=== PATIENT | male | born 1965 | race Two or more races ===

== ENCOUNTER 2017-07-30 03:20 | Inpatient (IN) | payer MEDICAID, OTHER ==
[~2017-07-30] VITALS: Ht 175.3 cm; Wt 99.3 kg
[2017-07-30] VITALS (7 sets, daily range): BP systolic 128–180; BP diastolic 71–102
[~2017-07-30 03:20] MED LIST: AMITRIPTYLINE H50 MG ORAL; AMLODIPINE BES2.5 MG ORAL; ARTANE2 MG ORAL; ATARAX25 MG ORAL; GLUCOTROL XL5 MG ORAL; LOPID600 MG ORAL; METOPROLOL SUCC25 MG ORAL; NITROSTAT0.3 MG SL; QUETIAPINE FUMA25 MG ORAL; RANITIDINE50 MG/2 ML PO; SIMVASTATIN5 MG ORAL
[2017-07-30] MEDS ORDERED: Mylanta II UD 30ml ORAL ONE (03:30)
[2017-07-30] MEDS ORDERED: Dicyclomine HCl 10mg/5ml oral soln ORAL ONE (03:30)
[2017-07-30] MEDS ORDERED: Lidocaine 2% Visc 15ml soln ORAL ONE (03:30)
--- NOTE | 2017-07-30 03:49 | Emergency Room Report ---
History of Present Illness General Chief Complaint: Abdominal Pain Source: Patient Present Illness HPI 51-year-old male with schizophrenia, abdominal pain "for years", presenting with abdominal pain. Patient points to suprapubic area abdominal pain. Constant pain, sharp, associated with nausea and vomiting x2 episodes, nonbilious nonbloody. Denies fever chills or diarrhea. Patient states that he has experienced this pain many times in the past. No history of abdominal surgeries endoscopies and colonoscopies. No black or bloody stools Per EMS, patient also has schizophrenia and had yelling outbursts while in ambulance Allergies: Coded Allergies: No Known Allergies (Verified , 10/01/10) Patient History Past Medical History: see triage record Past Surgical History: none Pertinent Family History: none Reviewed Nursing Documentation: PMH: Agreed, PSxH: Agreed Nursing Documentation-PMH Hx Cardiac Problems: Yes Hx Hypertension: Yes Hx Diabetes: Yes - NON INSULIN Hx Cancer: No Hx Gastrointestinal Problems: No Hx Neurological Problems: No Review of Systems All Other Systems: negative except mentioned in HPI Physical Exam Vital Signs Date Time Temp Pulse Resp B/P (MAP) Pulse Ox O2 Delivery O2 Flow Rate FiO2 07/30/17 03:21 98.1 88 18 180/102 98 Room Air Sp02 EP Interpretation: reviewed, normal General Appearance: alert, GCS 15, non-toxic, mild distress Head: normocephalic, atraumatic Eyes: bilateral eye normal inspection, bilateral eye PERRL, bilateral eye EOMI ENT: normal ENT inspection, normal pharynx, normal voice, moist mucus membranes Neck: normal inspection, full range of motion, supple Respiratory: normal inspection, lungs clear, normal breath sounds, no respiratory distress, no retraction, no wheezing, speaking full sentences, chest symmetrical Cardiovascular #1: normal inspection, regular rate, rhythm, no edema, normal capillary refill Cardiovascular #2: 2+ radial (R), 2+ radial (L) Gastrointestinal: soft, non-distended, no guarding, other - Soft, nontender all quadrants, no guarding no rebound, normal bowel sounds Genitourinary: no CVA tenderness Musculoskeletal: normal inspection, back normal, normal range of motion, non- tender Neurologic: normal inspection, alert, oriented x3, responsive, motor strength/ tone normal, sensory intact, normal gait, speech normal Psychiatric: normal inspection, judgement/insight normal, memory normal, no suicidal/homicidal ideation Skin: normal inspection, normal color, no rash, warm/dry, well hydrated, normal turgor Medical Decision Making Diagnostic Impression: Primary Impression: Nausea and vomiting in adult Additional Impressions: Hypokalemia Schizophrenia ER Course 51-year-old male with abdominal pain Differential Diagnosis: Gastritis, gastroenteritis, cholecystitis, appendicitis, diverticulitis, SBO, mesenteric ischemia, cardiac, UTI/pyelo At this time abdomen is soft nontender, not likely to have acute intra- abdominal surgical pathology, will hold CT for now. Plan: Basic labs, ua, ekg Pepcid, maalox, pain control, IVF ER course: Patient with +nausea, zofran given also had yelling outburst while in ED, haldol given patient feels better, no SI/HI +hypokalemia, pt supplemented Disposition: Patient will be admitted to med surg for intractable nausea/vomiting, hypokalemia Patient was signed out to Dr Parham, who has accepted patient for admission. Please note that this Emergency Department Report was dictated using [employer] technology software, occasionally this can lead to erroneous entry secondary to interpretation by the dictation equipment Laboratory Tests Test 07/30/17 03:32 White Blood Count 13.4 K/UL (4.8-10.8) H Red Blood Count 4.68 M/UL (4.70-6.10) L Hemoglobin 14.0 G/DL (14.2-18.0) L Hematocrit 40.5 % (42.0-52.0) L Mean Corpuscular Volume 87 FL (80-99) Mean Corpuscular Hemoglobin 29.9 PG (27.0-31.0) Mean Corpuscular Hemoglobin Concent 34.5 G/DL (32.0-36.0) Red Cell Distribution Width 13.2 % (11.6-14.8) Platelet Count 274 K/UL (150-450) Mean Platelet Volume 6.2 FL (6.5-10.1) L Neutrophils (%) (Auto) 51.6 % (45.0-75.0) Lymphocytes (%) (Auto) 36.1 % (20.0-45.0) Monocytes (%) (Auto) 8.8 % (1.0-10.0) Eosinophils (%) (Auto) 2.4 % (0.0-3.0) Basophils (%) (Auto) 1.1 % (0.0-2.0) Urine Color Pale yellow Urine Appearance Clear Urine pH 8 (4.5-8.0) Urine Specific [place] 1.015 (1.005-1.035) Urine Protein 1+ (NEGATIVE) H Urine Glucose (UA) 4+ (NEGATIVE) H Urine Ketones Negative (NEGATIVE) Urine Occult Blood Negative (NEGATIVE) Urine Nitrite Negative (NEGATIVE) Urine Bilirubin Negative (NEGATIVE) Urine Urobilinogen Normal MG/DL (0.0-1.0) Urine Leukocyte Esterase 1+ (NEGATIVE) H Urine RBC 0-2 /HPF (0 - 0) H Urine WBC 0-2 /HPF (0 - 0) Urine Squamous Epithelial Cells Occasional /LPF Urine Bacteria Occasional /HPF (NONE) Sodium Level 128 MMOL/L (136-145) L Potassium Level 3.0 MMOL/L (3.5-5.1) L Chloride Level 93 MMOL/L (98-107) L Carbon Dioxide Level 24 MMOL/L (21-32) Anion Gap 11 (5-15) Blood Urea Nitrogen 12 mg/dL (7-18) Creatinine 1.0 MG/DL (0.55-1.00) Estimate Glomerular Filtration Rate > 60 mL/min (>60) Glucose Level 312 MG/DL (74-106) H Calcium Level 7.8 MG/DL (8.5-10.1) L Total Bilirubin 0.3 MG/DL (0.2-1.0) Aspartate Amino Transferase (AST) 25 U/L (15-37) Alanine Aminotransferase (ALT) 55 U/L (12-78) Alkaline Phosphatase 94 U/L (46-116) Troponin I 0.000 ng/mL (0.000-0.056) Total Protein 7.6 G/DL (6.4-8.2) Albumin 3.6 G/DL (3.4-5.0) Globulin 4.0 g/dL Albumin/Globulin Ratio 0.9 (1.0-2.7) L Lipase 132 U/L (73-393) EKG Diagnostic Results Rate: normal Rhythm: NSR ST Segments: no acute changes ASA given to the pt in ED: No Rhythm Strip Diag. Results EP Interpretation: yes Rate: 73 Rhythm: NSR, no PVC's, no ectopy Last Vital Signs Date Time Temp Pulse Resp B/P (MAP) Pulse Ox O2 Delivery O2 Flow Rate FiO2 07/30/17 03:21 98.1 88 18 180/102 98 Room Air Disposition: ADMITTED INPATIENT Condition: Serious Diana Osborne M.D. Jul 30, 2017 03:49
[2017-07-30 03:53] LABS: BASOPHILS % (AUTO) 1.1 % (0.0-2.0); EOSINOPHILS % (AUTO) 2.4 % (0.0-3.0); LYMPHOCYTES % (AUTO) 36.1 % (20.0-45.0); MEAN CORPUSCULAR HEMOGLOBIN 29.9 PG (27.0-31.0); MEAN CORPUSCULAR HGB CONC 34.5 G/DL (32.0-36.0); MEAN CORPUSCULAR VOLUME 87 FL (80-99); MEAN PLATELET VOLUME 6.2 FL (6.5-10.1); MONOCYTES % (AUTO) 8.8 % (1.0-10.0); NEUTROPHILS % (AUTO) 51.6 % (45.0-75.0); PLATELET COUNT 274 K/UL (150-450); RED BLOOD COUNT 4.68 M/UL (4.70-6.10); RED CELL DISTRIBUTION WIDTH 13.2 % (11.6-14.8); WHITE BLOOD COUNT 13.4 K/UL (4.8-10.8)
[2017-07-30 04:03] LABS: APPEARANCE,URINE CLEAR; KETONES,URINE NEGATIVE (NEGATIVE); LEUKOCYTE ESTERASE ,URINE 1+ (NEGATIVE); NITRITE,URINE NEGATIVE (NEGATIVE); PH,URINE 8 (4.5-8.0); PROTEIN,URINE 1+ (NEGATIVE); UROBILINOGEN,URINE NORMAL MG/DL (0.0-1.0)
[2017-07-30 04:09] LABS: BACTERIA,URINE OCCASIONAL /HPF; RBC,URINE 0-2 /HPF (0 - 0); SQUAMOUS EPITHELIAL CELL,UR OCCASIONAL /LPF (NONE/OCC); WBC,URINE 0-2 /HPF (0 - 0)
[2017-07-30] MEDS ORDERED: Haloperidol 5mg/ml Inj IM ONE (04:15)
[2017-07-30 04:19] LABS: ALANINE AMINOTRANSFERASE 55 U/L (12-78); ALBUMIN/GLOBULIN RATIO 0.9 (1.0-2.7); ANION GAP 11 (5-15); ASPARTATE AMINO TRANSFERASE 25 U/L (15-37); CALCIUM 7.8 MG/DL (8.5-10.1); CARBON DIOXIDE 24 MMOL/L (21-32); CHLORIDE 93 MMOL/L (98-107); GLOMERULAR FILTRATION RATE > 60 mL/min (>60); LIPASE 132 U/L (73-393); SODIUM 128 MMOL/L (136-145); TOTAL PROTEIN 7.6 G/DL (6.4-8.2)
[2017-07-30] MEDS ORDERED: Famotidine 20 MG/ 2ML VIAL IVP ONE (06:15)
[2017-07-30] MEDS ORDERED: Nitroglycerin Subl 0.4mg tab SL PRN (07:00)
[2017-07-30] MEDS ORDERED: Metoclopramide 10mg/2ml Inj IVP PRN (07:00)
[2017-07-30] MEDS ORDERED: LORazepam Inj 2mg/ml 1ml IV PRN (07:00)
[2017-07-30] MEDS ORDERED: Mylanta II UD 30ml ORAL PRN (07:00)
[2017-07-30] MEDS ORDERED: Morphine Sulfate 2mg/ml Inj IVP PRN (07:00)
[2017-07-30] MEDS ORDERED: Miralax 17gm pkt ORAL PRN (07:00)
[2017-07-30] MEDS ORDERED: D5 1/2NS 1,000 ML IV SCH (08:00)
[2017-07-30] MEDS ORDERED: Pantoprazole Inj IV SCH (09:00)
[2017-07-30] MEDS: Heparin 5000 units/ml inj SUBQ SCH ×2 (09:22→20:21)
--- NOTE | 2017-07-30 10:28 | Consultation ---
History of Present Illness General Date patient seen: Jul 30, 2017 Time patient seen: 14:31 Chief Complaint: Abdominal Pain Reason for Consultation: leukocytosis Present Illness HPI 52 y/o M with hx of schizophrenia, chronic abd pain, HTN, DM2 presents to ED on 07/30 worsening abdominal pain associated with nausea and 2 episodes of non billous, non bloody emesis. Denies f/c, diarrhea, melena or hematochezia, dysuria, MCNEILL, cough. Refers has experience same pain multiple times int he past ID is consulted for leukocytosis u/a neg, WBC 13. normal lipase.LFTs normal Feels better now Allergies: Coded Allergies: No Known Allergies (Verified , 10/01/10) Medication History Scheduled Amlodipine Besylate* (Amlodipine Besylate*), 0 ORAL DAILY, (Reported) Metoprolol Succinate* (Metoprolol Succinate*), 0 ORAL DAILY, (Reported) Quetiapine Fumarate* (Seroquel*), 0 ORAL DAILY, (Reported) Miscellaneous Medications Amitriptyline Hcl (Amitriptyline Hcl), 0 ORAL, (Reported) Gemfibrozil* (Lopid*), 0 ORAL, (Reported) Glipizide* (Glucotrol Xl*), 0 ORAL, (Reported) Hydroxyzine HCl (Hydroxyzine HCl), 0 ORAL, (Reported) Nitroglycerin (Nitrostat), 0 SL, (Reported) Ranitidine Hcl* (Ranitidine Hcl*), 0 PO, (Reported) Simvastatin (Zocor), 0 ORAL, (Reported) Trihexyphenidyl HCl (Trihexyphenidyl HCl), 2 ORAL, (Reported) Patient History Healthcare decision maker Resuscitation status Full Code Advanced Directive on File Review of Systems All Other Systems: negative except mentioned in HPI Physical Exam Physical Exam Narrative General Appearance: alert, resting comfortably in bed HEENT: PERRL, no oral lesions Neck: normal inspection, full range of motion, supple Respiratory: normal inspection, lungs clear, normal breath sounds, no respiratory distress Cardiovascular normal inspection, regular rate, rhythm, no edema, Gastrointestinal: soft, non-distended, no guarding, , normal bowel sounds Genitourinary: no CVA tenderness Musculoskeletal: normal inspection, back normal, normal range of motion, non- tender Neurologic: normal inspection, alert, oriented x3, responsive, no focal deficits Skin: normal inspection, normal color, no rash, warm/dry, well hydrated, normal turgor Last 24 Hour Vital Signs Date Time Temp Pulse Resp B/P (MAP) Pulse Ox O2 Delivery O2 Flow Rate FiO2 07/30/17 08:15 97.7 81 20 128/80 94 Room Air 07/30/17 07:56 98.4 66 22 131/71 96 Room Air 07/30/17 07:30 66 22 131/71 96 Room Air 07/30/17 05:30 98.4 67 19 133/81 95 Room Air 07/30/17 03:30 98.1 18 180/102 98 Room Air 07/30/17 03:21 98.1 88 18 180/102 98 Room Air Laboratory Tests Test 07/30/17 03:32 07/30/17 09:45 White Blood Count 13.4 K/UL (4.8-10.8) H Red Blood Count 4.68 M/UL (4.70-6.10) L Hemoglobin 14.0 G/DL (14.2-18.0) L Hematocrit 40.5 % (42.0-52.0) L Mean Corpuscular Volume 87 FL (80-99) Mean Corpuscular Hemoglobin 29.9 PG (27.0-31.0) Mean Corpuscular Hemoglobin Concent 34.5 G/DL (32.0-36.0) Red Cell Distribution Width 13.2 % (11.6-14.8) Platelet Count 274 K/UL (150-450) Mean Platelet Volume 6.2 FL (6.5-10.1) L Neutrophils (%) (Auto) 51.6 % (45.0-75.0) Lymphocytes (%) (Auto) 36.1 % (20.0-45.0) Monocytes (%) (Auto) 8.8 % (1.0-10.0) Eosinophils (%) (Auto) 2.4 % (0.0-3.0) Basophils (%) (Auto) 1.1 % (0.0-2.0) Urine Color Pale yellow Urine Appearance Clear Urine pH 8 (4.5-8.0) Urine Specific [place] 1.015 (1.005-1.035) Urine Protein 1+ (NEGATIVE) H Urine Glucose (UA) 4+ (NEGATIVE) H Urine Ketones Negative (NEGATIVE) Urine Occult Blood Negative (NEGATIVE) Urine Nitrite Negative (NEGATIVE) Urine Bilirubin Negative (NEGATIVE) Urine Urobilinogen Normal MG/DL (0.0-1.0) Urine Leukocyte Esterase 1+ (NEGATIVE) H Urine RBC 0-2 /HPF (0 - 0) H Urine WBC 0-2 /HPF (0 - 0) Urine Squamous Epithelial Cells Occasional /LPF Urine Bacteria Occasional /HPF (NONE) Sodium Level 128 MMOL/L (136-145) L Potassium Level 3.0 MMOL/L (3.5-5.1) L Chloride Level 93 MMOL/L (98-107) L Carbon Dioxide Level 24 MMOL/L (21-32) Anion Gap 11 (5-15) Blood Urea Nitrogen 12 mg/dL (7-18) Creatinine 1.0 MG/DL (0.55-1.00) Estimat Glomerular Filtration Rate > 60 mL/min (>60) Glucose Level 312 MG/DL (74-106) H Calcium Level 7.8 MG/DL (8.5-10.1) L Total Bilirubin 0.3 MG/DL (0.2-1.0) Aspartate Amino Transf (AST/SGOT) 25 U/L (15-37) Alanine Aminotransferase (ALT/SGPT) 55 U/L (12-78) Alkaline Phosphatase 94 U/L (46-116) Troponin I 0.000 ng/mL (0.000-0.056) Total Protein 7.6 G/DL (6.4-8.2) Albumin 3.6 G/DL (3.4-5.0) Globulin 4.0 g/dL Albumin/Globulin Ratio 0.9 (1.0-2.7) L Lipase 132 U/L (73-393) Osmolality Pending Uric Acid Pending Thyroid Stimulating Hormone (TSH) Pending Free Thyroxine Pending Free Triiodothyronine Pending Cortisol Pending Height (Feet): 5 Height (Inches): 9.00 Weight (Pounds): 219 Medications Current Medications Medications (Trade) Dose Ordered Sig/Alethea Route PRN Reason Start Time Stop Time Status Last Admin Dose Admin Acetaminophen (Tylenol) 650 mg Q4H PRN ORAL fever 07/30/17 07:00 08/29/17 06:59 Al Hydroxide/Mg Hydroxide (Mylanta II) 30 ml Q6H PRN ORAL dyspepsia 07/30/17 07:00 08/29/17 06:59 Dextrose (Dextrose 50%) STAT PRN IV Hypoglycemia 07/30/17 07:00 08/29/17 06:59 Dextrose/Sodium Chloride 1,000 ml @ 75 mls/hr [id number] IV 07/30/17 08:00 08/29/17 07:59 07/30/17 09:23 Diphenhydramine HCl (Benadryl) 25 mg Q6H PRN ORAL Itching/Pruritis 07/30/17 07:00 08/29/17 06:59 Heparin Sodium (Porcine) (Heparin 5000 units/ml) 5,000 units EVERY 12 HOURS SUBQ 07/30/17 09:00 08/29/17 08:59 07/30/17 09:22 Lorazepam (Ativan 2mg/ml 1ml) 1 mg Q4H PRN IV agitation 07/30/17 07:00 08/06/17 06:59 Metoclopramide HCl (Reglan) 10 mg Q6H PRN IVP servere nauasea 07/30/17 07:00 08/29/17 06:59 Morphine Sulfate (Morphine Sulfate) 2 mg Q4H PRN IVP severe Pain (Pain Scale 7-10) 07/30/17 07:00 08/06/17 06:59 Nitroglycerin (Ntg) 0.4 mg Q5M X 3 DOSES PRN SL Prn Chest Pain 07/30/17 07:00 08/29/17 06:59 Ondansetron HCl (Zofran) 4 mg Q6H PRN IVP Nausea & Vomiting 07/30/17 07:00 08/29/17 06:59 Pantoprazole (Protonix) 40 mg DAILY IV 07/30/17 09:00 08/29/17 08:59 07/30/17 09:22 Polyethylene Glycol (Miralax) 17 gm HSPRN PRN ORAL Constipation 07/30/17 07:00 08/29/17 06:59 Promethazine HCl (Phenergan) 25 mg Q8H PRN IV refractory nausea 07/30/17 07:00 08/29/17 06:59 Temazepam (Restoril) 15 mg HSPRN PRN ORAL Insomnia 07/30/17 07:00 08/06/17 06:59 Assessment/Plan Assessment/Plan Abx: None Assesment: Acute on Chronic Abd pain- r/o colitis, diverticulitis, cholecystitis (however LFTs normal), gastritis N/V Mild leukocytosis- ?reactive to pain vs intraabdominal infection u/a neg Afebrile Plan: -Continue to monitor off abx unless febrile and Pending abd u/s -Consider CT abd/p if abd pain worsnes -Monitor CBC/BMP, temperatures Thank you for this consultation. Will continue to follow along with you. Discussed with JEROME. Karli Goldsmith M.D. Jul 30, 2017 10:28
[2017-07-30 11:10] LABS: THYROID STIMULATING HORMONE 1.738 uiU/mL (0.360-3.740); URIC ACID 4.5 MG/DL (2.6-7.2)
[2017-07-30 11:20] LABS: APPEARANCE,URINE CLEAR; KETONES,URINE NEGATIVE (NEGATIVE); LEUKOCYTE ESTERASE ,URINE NEGATIVE (NEGATIVE); NITRITE,URINE NEGATIVE (NEGATIVE); PH,URINE 8 (4.5-8.0); PROTEIN,URINE NEGATIVE (NEGATIVE); UROBILINOGEN,URINE NORMAL MG/DL (0.0-1.0)
[2017-07-30 11:30] LABS: BACTERIA,URINE FEW /HPF; RBC,URINE 0-2 /HPF (0 - 0); WBC,URINE 0-2 /HPF (0 - 0)
--- NOTE | 2017-07-30 11:54 | GI Initial Consult Note ---
History of Present Illness General Date patient seen: Jul 30, 2017 Time patient seen: 10:00 Reason for Hospitalization: Abdominal Pain Referring physician: SABRINA BUENO Reason for Consultation: ABDOMINAL PAIN Present Illness HPI 51-year-old male with schizophrenia, abdominal pain "for years", presenting with abdominal pain. Patient points to suprapubic area abdominal pain. Constant pain, sharp, associated with nausea and vomiting x2 episodes, nonbilious nonbloody. Denies fever chills or diarrhea. Patient states that he has experienced this pain many times in the past. No history of abdominal surgeries endoscopies and colonoscopies. No black or bloody stools Per EMS, patient also has schizophrenia and had yelling outbursts while in ambulance. GI consulted for abdominal pain. HPI as noted above. Patient seen on floor, awake A&Ox3 NAD with no active s/sx of N/V/D. The patient c/o of abdominal pain directed more towards the suprapubic area. Abdomen is mildly tender and soft. Patient denies any pain. Patient presents today with leukocytosis. Lipase unremarkable. No history of endoscopies or colonoscopies. Home Meds Reported Medications Trihexyphenidyl HCl (Trihexyphenidyl HCl) 2 Mg Tab, 2 ORAL, TAB 05/17/13 Simvastatin (ZOCOR) 5 Mg Tablet, 0 ORAL, TAB 05/17/13 Ranitidine Hcl* (RANITIDINE HCL*) 50 Mg/2 Ml Vial, 0 PO 05/17/13 Nitroglycerin (NITROSTAT) 0.3 Mg Tab.subl, 0 SL 05/17/13 Metoprolol Succinate* (METOPROLOL SUCCINATE*) 25 Mg Tab.er.24h, 0 ORAL DAILY 05/17/13 Hydroxyzine HCl (Hydroxyzine HCl) 25 Mg Tab, 0 ORAL 05/17/13 Glipizide* (GLUCOTROL XL*) 5 Mg Tab.er.24, 0 ORAL, #10 TAB 05/17/13 Gemfibrozil* (LOPID*) 600 Mg Tablet, 0 ORAL, TAB 05/17/13 Amlodipine Besylate* (AMLODIPINE BESYLATE*) 2.5 Mg Tablet, 0 ORAL DAILY, #30 TAB 05/17/13 Amitriptyline Hcl (AMITRIPTYLINE HCL) 50 Mg Tablet, 0 ORAL 05/17/13 Quetiapine Fumarate* (SEROQUEL*) 25 Mg Tablet, 0 ORAL DAILY, TAB 05/17/13 Med list reviewed/reconciled: Yes Allergies: Coded Allergies: No Known Allergies (Verified , 10/01/10) Patient History Limited by: medical condition History Provided By: Patient, Medical Record PMH Narrative Past Medical History: see triage record Past Surgical History: none Pertinent Family History: none Reviewed Nursing Documentation: PMH: Agreed, PSxH: Agreed Nursing Documentation-PMH Hx Cardiac Problems: Yes Hx Hypertension: Yes Hx Diabetes: Yes - NON INSULIN Hx Cancer: No Hx Gastrointestinal Problems: No Hx Neurological Problems: No Social History: Denies: smoking, alcohol use, drug use, other Review of Systems All Other Systems: negative except mentioned in HPI Physical Exam Vital Signs Date Time Temp Pulse Resp B/P (MAP) Pulse Ox O2 Delivery O2 Flow Rate FiO2 07/30/17 03:21 98.1 88 18 180/102 98 Room Air Sp02 EP Interpretation: reviewed Labs Laboratory Tests Test 07/30/17 03:32 07/30/17 09:45 07/30/17 10:42 White Blood Count 13.4 K/UL (4.8-10.8) H Red Blood Count 4.68 M/UL (4.70-6.10) L Hemoglobin 14.0 G/DL (14.2-18.0) L Hematocrit 40.5 % (42.0-52.0) L Mean Corpuscular Volume 87 FL (80-99) Mean Corpuscular Hemoglobin 29.9 PG (27.0-31.0) Mean Corpuscular Hemoglobin Concent 34.5 G/DL (32.0-36.0) Red Cell Distribution Width 13.2 % (11.6-14.8) Platelet Count 274 K/UL (150-450) Mean Platelet Volume 6.2 FL (6.5-10.1) L Neutrophils (%) (Auto) 51.6 % (45.0-75.0) Lymphocytes (%) (Auto) 36.1 % (20.0-45.0) Monocytes (%) (Auto) 8.8 % (1.0-10.0) Eosinophils (%) (Auto) 2.4 % (0.0-3.0) Basophils (%) (Auto) 1.1 % (0.0-2.0) Urine Color Pale yellow Pale yellow Urine Appearance Clear Clear Urine pH 8 (4.5-8.0) 8 (4.5-8.0) Urine Specific [place] 1.015 (1.005-1.035) 1.010 (1.005-1.035) Urine Protein 1+ (NEGATIVE) H Negative (NEGATIVE) Urine Glucose (UA) 4+ (NEGATIVE) H 3+ (NEGATIVE) H Urine Ketones Negative (NEGATIVE) Negative (NEGATIVE) Urine Occult Blood Negative (NEGATIVE) Negative (NEGATIVE) Urine Nitrite Negative (NEGATIVE) Negative (NEGATIVE) Urine Bilirubin Negative (NEGATIVE) Negative (NEGATIVE) Urine Urobilinogen Normal MG/DL (0.0-1.0) Normal MG/DL (0.0-1.0) Urine Leukocyte Esterase 1+ (NEGATIVE) H Negative (NEGATIVE) Urine RBC 0-2 /HPF (0 - 0) H 0-2 /HPF (0 - 0) H Urine WBC 0-2 /HPF (0 - 0) 0-2 /HPF (0 - 0) Urine Squamous Epithelial Cells Occasional /LPF None /LPF (NONE/OCC) Urine Bacteria Occasional /HPF (NONE) Few /HPF (NONE) Sodium Level 128 MMOL/L (136-145) L Potassium Level 3.0 MMOL/L (3.5-5.1) L Chloride Level 93 MMOL/L (98-107) L Carbon Dioxide Level 24 MMOL/L (21-32) Anion Gap 11 (5-15) Blood Urea Nitrogen 12 mg/dL (7-18) Creatinine 1.0 MG/DL (0.55-1.00) Estimat Glomerular Filtration Rate > 60 mL/min (>60) Glucose Level 312 MG/DL (74-106) H Calcium Level 7.8 MG/DL (8.5-10.1) L Total Bilirubin 0.3 MG/DL (0.2-1.0) Aspartate Amino Transf (AST/SGOT) 25 U/L (15-37) Alanine Aminotransferase (ALT/SGPT) 55 U/L (12-78) Alkaline Phosphatase 94 U/L (46-116) Troponin I 0.000 ng/mL (0.000-0.056) Total Protein 7.6 G/DL (6.4-8.2) Albumin 3.6 G/DL (3.4-5.0) Globulin 4.0 g/dL Albumin/Globulin Ratio 0.9 (1.0-2.7) L Lipase 132 U/L (73-393) Osmolality 304 mOsm/kg (297-317) Uric Acid 4.5 MG/DL (2.6-7.2) Thyroid Stimulating Hormone (TSH) 1.738 uiU/mL (0.360-3.740) Free Thyroxine 1.04 NG/DL (0.10-1.46) Free Triiodothyronine Pending Cortisol Pending Urine Osmolality 274 mOsm/kg (429-449) L Urine Random Sodium Pending General Appearance: well appearing, no apparent distress, alert Head: normocephalic EENT: PERRL/EOMI, normal ENT inspection Neck: supple Respiratory: normal breath sounds, no respiratory distress Cardiovascular: normal rate Gastrointestinal: soft Rectal: normal exam Genitourinary: no CVA tenderness Neurologic: alert, oriented x3, responsive Psychiatric: normal inspection Skin: normal inspection, normal color, no rash, warm/dry Lymphatic: normal inspection, no adenopathy Current Medications Current Medications Medications (Trade) Dose Ordered Sig/Alethea Route PRN Reason Start Time Stop Time Status Last Admin Dose Admin Acetaminophen (Tylenol) 650 mg Q4H PRN ORAL fever 07/30/17 07:00 08/29/17 06:59 Al Hydroxide/Mg Hydroxide (Mylanta II) 30 ml Q6H PRN ORAL dyspepsia 07/30/17 07:00 08/29/17 06:59 Dextrose (Dextrose 50%) STAT PRN IV Hypoglycemia 07/30/17 07:00 08/29/17 06:59 Dextrose/Sodium Chloride 1,000 ml @ 75 mls/hr [id number] IV 07/30/17 08:00 08/29/17 07:59 07/30/17 09:23 Diphenhydramine HCl (Benadryl) 25 mg Q6H PRN ORAL Itching/Pruritis 07/30/17 07:00 08/29/17 06:59 Heparin Sodium (Porcine) (Heparin 5000 units/ml) 5,000 units EVERY 12 HOURS SUBQ 07/30/17 09:00 08/29/17 08:59 07/30/17 09:22 Lorazepam (Ativan 2mg/ml 1ml) 1 mg Q4H PRN IV agitation 07/30/17 07:00 08/06/17 06:59 Metoclopramide HCl (Reglan) 10 mg Q6H PRN IVP servere randalsea 07/30/17 07:00 08/29/17 06:59 Morphine Sulfate (Morphine Sulfate) 2 mg Q4H PRN IVP severe Pain (Pain Scale 7-10) 07/30/17 07:00 08/06/17 06:59 Nitroglycerin (Ntg) 0.4 mg Q5M X 3 DOSES PRN SL Prn Chest Pain 07/30/17 07:00 08/29/17 06:59 Ondansetron HCl (Zofran) 4 mg Q6H PRN IVP Nausea & Vomiting 07/30/17 07:00 08/29/17 06:59 Pantoprazole (Protonix) 40 mg DAILY IV 07/30/17 09:00 08/29/17 08:59 07/30/17 09:22 Polyethylene Glycol (Miralax) 17 gm HSPRN PRN ORAL Constipation 07/30/17 07:00 08/29/17 06:59 Promethazine HCl (Phenergan) 25 mg Q8H PRN IV refractory nausea 07/30/17 07:00 08/29/17 06:59 Temazepam (Restoril) 15 mg HSPRN PRN ORAL Insomnia 07/30/17 07:00 08/06/17 06:59 GI: Plan Problems: (1) Abdominal pain (2) Nausea and vomiting in adult (3) Schizophrenia Plan lipase unremarkable symptomatic treatment at this time zofran prn, consider reglan if vomiting persists CLD, adv to ADA as tolerated H2B prophylaxis pain mgmt bowel regime abx fu utox fu labs Discussed with Dr. Tijerina. Thank you for this patient referral we will follow. Elizabeth Breen N.P. Jul 30, 2017 11:54
--- NOTE | 2017-07-30 13:22 | Consultation ---
Consult Note Consult Note Asked to evaluate for hypoNatremia and Hypo Kalemia- 51-year-old male with schizophrenia, abdominal pain "for years", presenting with abdominal pain. Patient points to suprapubic area abdominal pain. Constant pain, sharp, associated with nausea and vomiting x2 episodes, nonbilious nonbloody. Denies fever chills or diarrhea. Patient states that he has experienced this pain many times in the past. No history of abdominal surgeries endoscopies and colonoscopies. No black or bloody stools Per EMS, patient also has schizophrenia and had yelling outbursts while in ambulance Allergies: Coded Allergies: No Known Allergies (Verified , 10/01/10) Hx Cardiac Problems: Yes Hx Hypertension: Yes Hx Diabetes: Yes - NON INSULIN Assessment/Plan HypoNatremia: Depletional HypoKalemia: Vomiting HyperGlycemia HTN Plan: Saline IV K supplements Monitor renal parameters and JENI Jean-Baptiste Jul 30, 2017 13:22
[2017-07-30] MEDS: Docusate 100mg cap ORAL SCH ×2 (13:23→18:16)
--- NOTE | 2017-07-30 14:08 | Consultation ---
History of Present Illness General Chief Complaint: Abdominal Pain Referring physician: SABRINA BUENO Reason for Consultation: ABDOMINAL PAIN Present Illness HPI 51 yo with hx of bipolar whp came to the hospital for abdominal pain. the pt became agitated in er and got a shot. the pt currently has a psychiatrist and takes seroquel 200mg. the pt is doing well and is calm. Allergies: Coded Allergies: No Known Allergies (Verified , 10/01/10) Medication History Scheduled Amlodipine Besylate* (Amlodipine Besylate*), 0 ORAL DAILY, (Reported) Metoprolol Succinate* (Metoprolol Succinate*), 0 ORAL DAILY, (Reported) Quetiapine Fumarate* (Seroquel*), 0 ORAL DAILY, (Reported) Miscellaneous Medications Amitriptyline Hcl (Amitriptyline Hcl), 0 ORAL, (Reported) Gemfibrozil* (Lopid*), 0 ORAL, (Reported) Glipizide* (Glucotrol Xl*), 0 ORAL, (Reported) Hydroxyzine HCl (Hydroxyzine HCl), 0 ORAL, (Reported) Nitroglycerin (Nitrostat), 0 SL, (Reported) Ranitidine Hcl* (Ranitidine Hcl*), 0 PO, (Reported) Simvastatin (Zocor), 0 ORAL, (Reported) Trihexyphenidyl HCl (Trihexyphenidyl HCl), 2 ORAL, (Reported) Patient History Limited by: medical condition History Provided By: Patient, Medical Record, PMD Healthcare decision maker Resuscitation status Full Code Advanced Directive on File Past Medical/Surgical History Past Medical/Surgical History: (1) Hypokalemia (2) Dizziness (3) Schizophrenia (4) Abdominal pain (5) Nausea and vomiting in adult Review of Systems Psychiatric: Reports: see HPI, prior hx, anxiety, depressed feelings, emotional problems Physical Exam General Appearance: no apparent distress, alert, overweight Neurologic: alert, oriented x 3, responsive, depressed affect Last 24 Hour Vital Signs Date Time Temp Pulse Resp B/P (MAP) Pulse Ox O2 Delivery O2 Flow Rate FiO2 07/30/17 08:15 97.7 81 20 128/80 94 Room Air 07/30/17 07:56 98.4 66 22 131/71 96 Room Air 07/30/17 07:30 66 22 131/71 96 Room Air 07/30/17 05:30 98.4 67 19 133/81 95 Room Air 07/30/17 03:30 98.1 18 180/102 98 Room Air 07/30/17 03:21 98.1 88 18 180/102 98 Room Air Laboratory Tests Test 07/30/17 03:32 07/30/17 09:45 07/30/17 10:42 White Blood Count 13.4 K/UL (4.8-10.8) H Red Blood Count 4.68 M/UL (4.70-6.10) L Hemoglobin 14.0 G/DL (14.2-18.0) L Hematocrit 40.5 % (42.0-52.0) L Mean Corpuscular Volume 87 FL (80-99) Mean Corpuscular Hemoglobin 29.9 PG (27.0-31.0) Mean Corpuscular Hemoglobin Concent 34.5 G/DL (32.0-36.0) Red Cell Distribution Width 13.2 % (11.6-14.8) Platelet Count 274 K/UL (150-450) Mean Platelet Volume 6.2 FL (6.5-10.1) L Neutrophils (%) (Auto) 51.6 % (45.0-75.0) Lymphocytes (%) (Auto) 36.1 % (20.0-45.0) Monocytes (%) (Auto) 8.8 % (1.0-10.0) Eosinophils (%) (Auto) 2.4 % (0.0-3.0) Basophils (%) (Auto) 1.1 % (0.0-2.0) Urine Color Pale yellow Pale yellow Urine Appearance Clear Clear Urine pH 8 (4.5-8.0) 8 (4.5-8.0) Urine Specific Christopher 1.015 (1.005-1.035) 1.010 (1.005-1.035) Urine Protein 1+ (NEGATIVE) H Negative (NEGATIVE) Urine Glucose (UA) 4+ (NEGATIVE) H 3+ (NEGATIVE) H Urine Ketones Negative (NEGATIVE) Negative (NEGATIVE) Urine Occult Blood Negative (NEGATIVE) Negative (NEGATIVE) Urine Nitrite Negative (NEGATIVE) Negative (NEGATIVE) Urine Bilirubin Negative (NEGATIVE) Negative (NEGATIVE) Urine Urobilinogen Normal MG/DL (0.0-1.0) Normal MG/DL (0.0-1.0) Urine Leukocyte Esterase 1+ (NEGATIVE) H Negative (NEGATIVE) Urine RBC 0-2 /HPF (0 - 0) H 0-2 /HPF (0 - 0) H Urine WBC 0-2 /HPF (0 - 0) 0-2 /HPF (0 - 0) Urine Squamous Epithelial Cells Occasional /LPF None /LPF (NONE/OCC) Urine Bacteria Occasional /HPF (NONE) Few /HPF (NONE) Sodium Level 128 MMOL/L (136-145) L Potassium Level 3.0 MMOL/L (3.5-5.1) L Chloride Level 93 MMOL/L (98-107) L Carbon Dioxide Level 24 MMOL/L (21-32) Anion Gap 11 (5-15) Blood Urea Nitrogen 12 mg/dL (7-18) Creatinine 1.0 MG/DL (0.55-1.00) Estimat Glomerular Filtration Rate > 60 mL/min (>60) Glucose Level 312 MG/DL (74-106) H Calcium Level 7.8 MG/DL (8.5-10.1) L Total Bilirubin 0.3 MG/DL (0.2-1.0) Aspartate Amino Transf (AST/SGOT) 25 U/L (15-37) Alanine Aminotransferase (ALT/SGPT) 55 U/L (12-78) Alkaline Phosphatase 94 U/L (46-116) Troponin I 0.000 ng/mL (0.000-0.056) Total Protein 7.6 G/DL (6.4-8.2) Albumin 3.6 G/DL (3.4-5.0) Globulin 4.0 g/dL Albumin/Globulin Ratio 0.9 (1.0-2.7) L Lipase 132 U/L (73-393) Osmolality 304 mOsm/kg (297-317) Uric Acid 4.5 MG/DL (2.6-7.2) Thyroid Stimulating Hormone (TSH) 1.738 uiU/mL (0.360-3.740) Free Thyroxine 1.04 NG/DL (0.10-1.46) Free Triiodothyronine Pending Cortisol Pending Urine Osmolality 274 mOsm/kg (429-449) L Urine Random Sodium 85 MEQ/L (20-110) Height (Feet): 5 Height (Inches): 9.00 Weight (Pounds): 219 Medications Current Medications Medications (Trade) Dose Ordered Sig/Alethea Route PRN Reason Start Time Stop Time Status Last Admin Dose Admin Acetaminophen (Tylenol) 650 mg Q4H PRN ORAL fever 07/30/17 07:00 08/29/17 06:59 Dextrose (Dextrose 50%) STAT PRN IV Hypoglycemia 07/30/17 07:00 08/29/17 06:59 Diphenhydramine HCl (Benadryl) 25 mg Q6H PRN ORAL Itching/Pruritis 07/30/17 07:00 08/29/17 06:59 Docusate Sodium (Colace) 100 mg THREE TIMES A DAY ORAL 07/30/17 13:00 08/29/17 12:59 07/30/17 13:23 Heparin Sodium (Porcine) (Heparin 5000 units/ml) 5,000 units EVERY 12 HOURS SUBQ 07/30/17 09:00 08/29/17 08:59 07/30/17 09:22 Lorazepam (Ativan 2mg/ml 1ml) 1 mg Q4H PRN IV agitation 07/30/17 07:00 08/06/17 06:59 Metoclopramide HCl (Reglan) 10 mg Q6H PRN IVP servere nauasea 07/30/17 07:00 08/29/17 06:59 Morphine Sulfate (Morphine Sulfate) 2 mg Q4H PRN IVP severe Pain (Pain Scale 7-10) 07/30/17 07:00 08/06/17 06:59 Nitroglycerin (Ntg) 0.4 mg Q5M X 3 DOSES PRN SL Prn Chest Pain 07/30/17 07:00 08/29/17 06:59 Pantoprazole (Protonix) 40 mg Q12HR IV 07/30/17 21:00 08/29/17 08:59 Polyethylene Glycol (Miralax) 17 gm BEDTIME ORAL 07/30/17 21:00 08/29/17 20:59 Polyethylene Glycol (Miralax) 17 gm HSPRN PRN ORAL Constipation 07/30/17 07:00 08/29/17 06:59 Sodium Chloride 1,000 ml @ 75 mls/hr [id number] IV 07/30/17 13:30 08/29/17 13:29 07/30/17 13:27 Temazepam (Restoril) 15 mg HSPRN PRN ORAL Insomnia 07/30/17 07:00 08/06/17 06:59 Assessment/Plan Status: stable, progressing Assessment/Plan schizoaffective d/o bipolar type seroquel 200mg qhs Chuy Nagy M.D. Jul 30, 2017 14:08
[2017-07-30] MEDS ORDERED: D5 1/2NS 1000ml IV ONE (18:54)
[2017-07-30] MEDS: Pantoprazole Inj IV SCH (20:17)
[2017-07-30] MEDS ORDERED: QUEtiapine 200mg tab ORAL SCH (21:00)
[2017-07-30] MEDS ORDERED: Miralax 17gm pkt ORAL SCH (21:00)
--- NOTE | 2017-07-30 22:45 | History and Physical ---
History of Present Illness General Date patient seen: Jul 30, 2017 Reason for Hospitalization: Abdominal Pain Present Illness HPI 51-year-old male with schizophrenia, chronic abdominal pain "for years", presenting with intractable abdominal pain. Patient points to suprapubic area abdominal pain. Constant pain, sharp, associated with nausea and vomiting x2 episodes, nonbilious nonbloody. Denies fever chills or diarrhea. Patient states that he has experienced this pain many times in the past. No history of abdominal surgeries endoscopies and colonoscopies. He is admitted for intractable abdominal pain. Allergies: Coded Allergies: No Known Allergies (Verified , 10/01/10) Medication History Scheduled Amlodipine Besylate* (Amlodipine Besylate*), 0 ORAL DAILY, (Reported) Metoprolol Succinate* (Metoprolol Succinate*), 0 ORAL DAILY, (Reported) Quetiapine Fumarate* (Seroquel*), 0 ORAL DAILY, (Reported) Miscellaneous Medications Amitriptyline Hcl (Amitriptyline Hcl), 0 ORAL, (Reported) Gemfibrozil* (Lopid*), 0 ORAL, (Reported) Glipizide* (Glucotrol Xl*), 0 ORAL, (Reported) Hydroxyzine HCl (Hydroxyzine HCl), 0 ORAL, (Reported) Nitroglycerin (Nitrostat), 0 SL, (Reported) Ranitidine Hcl* (Ranitidine Hcl*), 0 PO, (Reported) Simvastatin (Zocor), 0 ORAL, (Reported) Trihexyphenidyl HCl (Trihexyphenidyl HCl), 2 ORAL, (Reported) Patient History Healthcare decision maker Resuscitation status Full Code Advanced Directive on File Past Medical/Surgical History Past Medical/Surgical History: (1) Abdominal pain Review of Systems All Other Systems: negative except mentioned in HPI Physical Exam General Appearance: WD/WN, no apparent distress Lines, tubes and drains: peripheral, central line HEENT: normocephalic, atraumatic Neck: non-tender, normal alignment, limited range of motion Respiratory/Chest: lungs clear Breasts: no masses Cardiovascular/Chest: normal peripheral pulses, normal rate Abdomen: normal bowel sounds, non tender Genitourinary/Rectal: normal genital exam, heme negative stool Extremities: normal range of motion Skin Exam: normal pigmentation 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 Lymphatic: anterior cervical Last 24 Hour Vital Signs Date Time Temp Pulse Resp B/P (MAP) Pulse Ox O2 Delivery O2 Flow Rate FiO2 07/30/17 20:00 97.7 65 21 136/77 93 Room Air 07/30/17 16:00 97.7 82 20 149/88 94 Room Air 07/30/17 12:00 97.7 66 20 137/77 94 Room Air 07/30/17 08:15 97.7 81 20 128/80 94 Room Air 07/30/17 07:56 98.4 66 22 131/71 96 Room Air 07/30/17 07:30 66 22 131/71 96 Room Air 07/30/17 05:30 98.4 67 19 133/81 95 Room Air 07/30/17 03:30 98.1 18 180/102 98 Room Air 07/30/17 03:21 98.1 88 18 180/102 98 Room Air Intake and Output 07/30/17 07/31/17 19:00 07:00 Intake Total 525 ml 225 ml Output Total 1500 ml Balance -975 ml 225 ml Intake Oral 450 ml IV Total 75 ml 225 ml Output Urine Total 1500 ml Laboratory Tests Test 07/30/17 03:32 07/30/17 09:45 07/30/17 10:42 07/30/17 15:40 White Blood Count 13.4 K/UL (4.8-10.8) H Red Blood Count 4.68 M/UL (4.70-6.10) L Hemoglobin 14.0 G/DL (14.2-18.0) L Hematocrit 40.5 % (42.0-52.0) L Mean Corpuscular Volume 87 FL (80-99) Mean Corpuscular Hemoglobin 29.9 PG (27.0-31.0) Mean Corpuscular Hemoglobin Concent 34.5 G/DL (32.0-36.0) Red Cell Distribution Width 13.2 % (11.6-14.8) Platelet Count 274 K/UL (150-450) Mean Platelet Volume 6.2 FL (6.5-10.1) L Neutrophils (%) (Auto) 51.6 % (45.0-75.0) Lymphocytes (%) (Auto) 36.1 % (20.0-45.0) Monocytes (%) (Auto) 8.8 % (1.0-10.0) Eosinophils (%) (Auto) 2.4 % (0.0-3.0) Basophils (%) (Auto) 1.1 % (0.0-2.0) Urine Color Pale yellow Pale yellow Urine Appearance Clear Clear Urine pH 8 (4.5-8.0) 8 (4.5-8.0) Urine Specific [place] 1.015 (1.005-1.035) 1.010 (1.005-1.035) Urine Protein 1+ (NEGATIVE) H Negative (NEGATIVE) Urine Glucose (UA) 4+ (NEGATIVE) H 3+ (NEGATIVE) H Urine Ketones Negative (NEGATIVE) Negative (NEGATIVE) Urine Occult Blood Negative (NEGATIVE) Negative (NEGATIVE) Urine Nitrite Negative (NEGATIVE) Negative (NEGATIVE) Urine Bilirubin Negative (NEGATIVE) Negative (NEGATIVE) Urine Urobilinogen Normal MG/DL (0.0-1.0) Normal MG/DL (0.0-1.0) Urine Leukocyte Esterase 1+ (NEGATIVE) H Negative (NEGATIVE) Urine RBC 0-2 /HPF (0 - 0) H 0-2 /HPF (0 - 0) H Urine WBC 0-2 /HPF (0 - 0) 0-2 /HPF (0 - 0) Urine Squamous Epithelial Cells Occasional /LPF None /LPF (NONE/OCC) Urine Bacteria Occasional /HPF (NONE) Few /HPF (NONE) Sodium Level 128 MMOL/L (136-145) L Potassium Level 3.0 MMOL/L (3.5-5.1) L Chloride Level 93 MMOL/L (98-107) L Carbon Dioxide Level 24 MMOL/L (21-32) Anion Gap 11 (5-15) Blood Urea Nitrogen 12 mg/dL (7-18) Creatinine 1.0 MG/DL (0.55-1.00) Estimat Glomerular Filtration Rate > 60 mL/min (>60) Glucose Level 312 MG/DL (74-106) H Calcium Level 7.8 MG/DL (8.5-10.1) L Total Bilirubin 0.3 MG/DL (0.2-1.0) Aspartate Amino Transf (AST/SGOT) 25 U/L (15-37) Alanine Aminotransferase (ALT/SGPT) 55 U/L (12-78) Alkaline Phosphatase 94 U/L (46-116) Troponin I 0.000 ng/mL (0.000-0.056) Total Protein 7.6 G/DL (6.4-8.2) Albumin 3.6 G/DL (3.4-5.0) Globulin 4.0 g/dL Albumin/Globulin Ratio 0.9 (1.0-2.7) L Lipase 132 U/L (73-393) Osmolality 304 mOsm/kg (297-317) Uric Acid 4.5 MG/DL (2.6-7.2) Thyroid Stimulating Hormone (TSH) 1.738 uiU/mL (0.360-3.740) Free Thyroxine 1.04 NG/DL (0.10-1.46) Free Triiodothyronine Pending Cortisol Pending Urine Osmolality 274 mOsm/kg (429-449) L Urine Random Sodium 85 MEQ/L (20-110) Urine Opiates Screen Negative (NEGATIVE) Urine Barbiturates Screen Negative (NEGATIVE) Phencyclidine (PCP) Screen Negative (NEGATIVE) Urine Amphetamines Screen Negative (NEGATIVE) Urine Benzodiazepines Screen Negative (NEGATIVE) Urine Cocaine Screen Negative (NEGATIVE) Urine Marijuana (THC) Screen Negative (NEGATIVE) Height (Feet): 5 Height (Inches): 9.00 Weight (Pounds): 219 Medications Current Medications Medications (Trade) Dose Ordered Sig/Alethea Route PRN Reason Start Time Stop Time Status Last Admin Dose Admin Acetaminophen (Tylenol) 650 mg Q4H PRN ORAL fever 07/30/17 07:00 08/29/17 06:59 Dextrose (Dextrose 50%) STAT PRN IV Hypoglycemia 07/30/17 07:00 08/29/17 06:59 Diphenhydramine HCl (Benadryl) 25 mg Q6H PRN ORAL Itching/Pruritis 07/30/17 07:00 08/29/17 06:59 Docusate Sodium (Colace) 100 mg THREE TIMES A DAY ORAL 07/30/17 13:00 08/29/17 12:59 07/30/17 18:16 Heparin Sodium (Porcine) (Heparin 5000 units/ml) 5,000 units EVERY 12 HOURS SUBQ 07/30/17 09:00 08/29/17 08:59 07/30/17 20:21 Lorazepam (Ativan 2mg/ml 1ml) 1 mg Q4H PRN IV agitation 07/30/17 07:00 10/16/17 06:59 Metoclopramide HCl (Reglan) 10 mg Q6H PRN IVP yvette kovacs 07/30/17 07:00 08/29/17 06:59 Morphine Sulfate (Morphine Sulfate) 2 mg Q4H PRN IVP severe Pain (Pain Scale 7-10) 07/30/17 07:00 08/06/17 06:59 Nitroglycerin (Ntg) 0.4 mg Q5M X 3 DOSES PRN SL Prn Chest Pain 07/30/17 07:00 08/29/17 06:59 Pantoprazole (Protonix) 40 mg Q12HR IV 07/30/17 21:00 08/29/17 08:59 07/30/17 20:17 Polyethylene Glycol (Miralax) 17 gm BEDTIME ORAL 07/30/17 21:00 08/29/17 20:59 07/30/17 20:17 Polyethylene Glycol (Miralax) 17 gm HSPRN PRN ORAL Constipation 07/30/17 07:00 08/29/17 06:59 Quetiapine Fumarate (SEROquel) 200 mg BEDTIME ORAL 07/30/17 21:00 08/29/17 20:59 07/30/17 20:18 Sodium Chloride 1,000 ml @ 75 mls/hr [id number] IV 07/30/17 13:30 08/29/17 13:29 07/30/17 13:27 Temazepam (Restoril) 15 mg HSPRN PRN ORAL Insomnia 07/30/17 07:00 08/06/17 06:59 Assessment/Plan Problem List: (1) Abdominal pain ICD Codes: R10.9 - Unspecified abdominal pain SNOMED: 57887675 (2) Schizophrenia ICD Codes: F20.9 - Schizophrenia, unspecified SNOMED: 71415536 (3) Nausea and vomiting in adult ICD Codes: R11.2 - Nausea with vomiting, unspecified SNOMED: 11283729 (4) Hypokalemia ICD Codes: E87.6 - Hypokalemia SNOMED: 44882754 Assessment/Plan npo IV fluids GI evaluation dvt prophylaxis SABRINA CLAUDIO Jul 30, 2017 22:45
[2017-07-31] VITALS: BP 132/81
[2017-07-31 04:00] VITALS: BP 119/70
[2017-07-31 05:34] LABS: FREE TRIIODOTHYRONINE 3.2 pg/mL (2.0-4.4)
[2017-07-31 07:09] LABS: BASOPHILS % (AUTO) 0.8 % (0.0-2.0); EOSINOPHILS % (AUTO) 1.8 % (0.0-3.0); LYMPHOCYTES % (AUTO) 28.8 % (20.0-45.0); MEAN CORPUSCULAR HEMOGLOBIN 29.1 PG (27.0-31.0); MEAN CORPUSCULAR HGB CONC 33.6 G/DL (32.0-36.0); MEAN CORPUSCULAR VOLUME 86 FL (80-99); MEAN PLATELET VOLUME 6.3 FL (6.5-10.1); MONOCYTES % (AUTO) 9.5 % (1.0-10.0); NEUTROPHILS % (AUTO) 59.2 % (45.0-75.0); PLATELET COUNT 263 K/UL (150-450); RED BLOOD COUNT 4.83 M/UL (4.70-6.10); RED CELL DISTRIBUTION WIDTH 13.1 % (11.6-14.8); WHITE BLOOD COUNT 9.6 K/UL (4.8-10.8)
[2017-07-31 07:40] LABS: ALANINE AMINOTRANSFERASE 60 U/L (12-78); ALBUMIN/GLOBULIN RATIO 0.8 (1.0-2.7); AMYLASE 41 U/L (25-115); ANION GAP 9 (5-15); ASPARTATE AMINO TRANSFERASE 37 U/L (15-37); CALCIUM 8.1 MG/DL (8.5-10.1); CARBON DIOXIDE 26 MMOL/L (21-32); CHLORIDE 105 MMOL/L (98-107); CHOLESTEROL 166 MG/DL (< 200); CHOLESTEROL/HDL RATIO 5.2 (3.3-4.4); CREATININE 0.8 MG/DL (0.55-1.30); GLOMERULAR FILTRATION RATE > 60 mL/min (>60); LIPASE 117 U/L (73-393); MAGNESIUM 2.2 MG/DL (1.8-2.4); PHOSPHORUS 3.2 MG/DL (2.5-4.9); POTASSIUM 3.8 MMOL/L (3.5-5.1); SODIUM 140 MMOL/L (136-145); TOTAL PROTEIN 7.3 G/DL (6.4-8.2); URIC ACID 4.6 MG/DL (2.6-7.2)
--- NOTE | 2017-07-31 08:07 | Cardiology Report ---
APPROVED REPORT EKG Measurement Heart [id number] Normal sinus rhythm Cannot rule out Anterior infarct, age undetermined Abnormal ECG
[2017-07-31 08:15] VITALS: BP 143/81
[2017-07-31 08:19] LABS: CORTISOL LC 17.1 ug/dL (.)
[2017-07-31] MEDS: Docusate 100mg cap ORAL SCH ×2 (09:40→13:05)
[2017-07-31] MEDS: Pantoprazole Inj IV SCH (09:40)
[2017-07-31 09:41] LABS: CRP QUANT < 0.4 mg/dL (0.00-0.90)
[2017-07-31] MEDS: Heparin 5000 units/ml inj SUBQ SCH (09:42)
--- NOTE | 2017-07-31 10:27 | Diagnostic Imaging Report ---
Indication: Epigastric abdominal pain, elevated lipase Technique: West-scale and duplex images of the upper abdomen were obtained Comparison: Findings: Gallbladder is unremarkable, without stones, wall thickening, nor pericholecystic fluid. Common bile duct measures 5 mm in diameter. No intrahepatic biliary ductal dilatation. Liver demonstrates normal echogenicity, no focal abnormality. Portal vein and hepatic veins are patent. Pancreas is unremarkable. Spleen is unremarkable. Left kidney measures 13.3 cm in length. Right kidney measures 11.3 cm length. Both kidneys demonstrate normal echogenicity. There is no hydronephrosis. No focal abnormality . Non-aneurysmal abdominal aorta . Impression: Liver demonstrates diffusely increased echogenicity, consistent with diffuse hepatocellular disease, most likely fatty change. Negative for gallstones, dilated ducts, or other acute abnormality
[2017-07-31 11:57] VITALS: BP 144/95
--- NOTE | 2017-07-31 12:16 | General Progress Note ---
Assessment/Plan Status: stable Assessment/Plan status; HypoNatremia: Depletional corrected HypoKalemia: Vomiting- corrected HyperGlycemia- HgbA1c 11 HTN Plan: DC saline Monitor renal parameters and Lytes Per consultants, ? DC Subjective ROS Limited/Unobtainable: No Allergies: Coded Allergies: No Known Allergies (Verified , 10/01/10) Objective Last 24 Hour Vital Signs Date Time Temp Pulse Resp B/P (MAP) Pulse Ox O2 Delivery O2 Flow Rate FiO2 07/31/17 11:57 97.5 104 21 144/95 95 Room Air 07/31/17 08:15 97.8 84 20 143/81 95 Room Air 07/31/17 04:00 97.5 67 20 119/70 96 Room Air 07/31/17 00:00 97.5 60 21 132/81 94 Room Air 07/30/17 20:00 97.7 65 21 136/77 93 Room Air 07/30/17 16:00 97.7 82 20 149/88 94 Room Air Intake and Output 07/31/17 08/01/17 19:00 07:00 Intake Total 240 ml Balance 240 ml Intake Oral 240 ml Laboratory Tests 07/30/17 15:40: Urine Opiates Screen Negative, Urine Barbiturates Screen Negative, Phencyclidine (PCP) Screen Negative, Urine Amphetamines Screen Negative, Urine Benzodiazepines Screen Negative, Urine Cocaine Screen Negative, Urine Marijuana (THC) Screen Negative 07/31/17 05:30: White Blood Count 9.6, Red Blood Count 4.83, Hemoglobin 14.0L, Hematocrit 41.8L , Mean Corpuscular Volume 86, Mean Corpuscular Hemoglobin 29.1, Mean Corpuscular Hemoglobin Concent 33.6, Red Cell Distribution Width 13.1, Platelet Count 263, Mean Platelet Volume 6.3L, Neutrophils (%) (Auto) 59.2, Lymphocytes ( %) (Auto) 28.8, Monocytes (%) (Auto) 9.5, Eosinophils (%) (Auto) 1.8, Basophils (%) (Auto) 0.8, Activated Partial Thromboplast Time 26, Sodium Level 140, Potassium Level 3.8, Chloride Level 105, Carbon Dioxide Level 26, Anion Gap 9, Blood Urea Nitrogen 9, Creatinine 0.8, Estimat Glomerular Filtration Rate > 60, Glucose Level 136#H, Hemoglobin A1c 11.0H, Uric Acid 4.6, Calcium Level 8.1L, Phosphorus Level 3.2, Magnesium Level 2.2, Total Bilirubin 0.4, Gamma Glutamyl Transpeptidase 29, Aspartate Amino Transf (AST/SGOT) 37, Alanine Aminotransferase (ALT/SGPT) 60, Alkaline Phosphatase 78, Total Creatine Kinase 316H, C-Reactive Protein, Quantitative < 0.4, Pro-B-Type Natriuretic Peptide 115 , Total Protein 7.3, Albumin 3.3L, Globulin 4.0, Albumin/Globulin Ratio 0.8L, Triglycerides Level 211H, Cholesterol Level 166, LDL Cholesterol 110H, HDL Cholesterol 32L, Cholesterol/HDL Ratio 5.2H, Amylase Level 41, Lipase 117 Height (Feet): 5 Height (Inches): 9.00 Weight (Pounds): 219 General Appearance: no apparent distress, other - ambulating Abdomen: soft Objective no other change JENI DOMINGUEZ Jul 31, 2017 12:16
[2017-07-31 15:33] VITALS: BP 138/84
--- NOTE | 2017-07-31 15:50 | GI Progress Note ---
Assessment/Plan Problems: (1) Abdominal pain ICD Codes: R10.9 - Unspecified abdominal pain SNOMED: 65752454 (2) Nausea and vomiting in adult ICD Codes: R11.2 - Nausea with vomiting, unspecified SNOMED: 34669784 (3) Schizophrenia ICD Codes: F20.9 - Schizophrenia, unspecified SNOMED: 64942461 (4) Hypokalemia ICD Codes: E87.6 - Hypokalemia SNOMED: 33122613 (5) Dizziness ICD Codes: R42 - Dizziness and giddiness SNOMED: 828563316 Status: stable Status Narrative Discussed with Dr. Tijerina. Assessment/Plan lipase unremarkable utox unremarkable ok for DC per GI standpoint symptomatic treatment at this time zofran prn, consider reglan if vomiting persists ADA diet, tolerating H2B prophylaxis pain mgmt bowel regime abx fu labs recommend initial outpatient colonoscopy screening, fu with PCP Subjective Subjective no pain wants to go home Objective Last 24 Hour Vital Signs Date Time Temp Pulse Resp B/P (MAP) Pulse Ox O2 Delivery O2 Flow Rate FiO2 07/31/17 15:33 97.8 86 19 138/84 95 Room Air 07/31/17 11:57 97.5 104 21 144/95 95 Room Air 07/31/17 08:15 97.8 84 20 143/81 95 Room Air 07/31/17 04:00 97.5 67 20 119/70 96 Room Air 07/31/17 00:00 97.5 60 21 132/81 94 Room Air 07/30/17 20:00 97.7 65 21 136/77 93 Room Air 07/30/17 16:00 97.7 82 20 149/88 94 Room Air Intake and Output 07/31/17 08/01/17 19:00 07:00 Intake Total 240 ml Balance 240 ml Intake Oral 240 ml Laboratory Tests Test 07/31/17 05:30 White Blood Count 9.6 K/UL (4.8-10.8) Red Blood Count 4.83 M/UL (4.70-6.10) Hemoglobin 14.0 G/DL (14.2-18.0) L Hematocrit 41.8 % (42.0-52.0) L Mean Corpuscular Volume 86 FL (80-99) Mean Corpuscular Hemoglobin 29.1 PG (27.0-31.0) Mean Corpuscular Hemoglobin Concent 33.6 G/DL (32.0-36.0) Red Cell Distribution Width 13.1 % (11.6-14.8) Platelet Count 263 K/UL (150-450) Mean Platelet Volume 6.3 FL (6.5-10.1) L Neutrophils (%) (Auto) 59.2 % (45.0-75.0) Lymphocytes (%) (Auto) 28.8 % (20.0-45.0) Monocytes (%) (Auto) 9.5 % (1.0-10.0) Eosinophils (%) (Auto) 1.8 % (0.0-3.0) Basophils (%) (Auto) 0.8 % (0.0-2.0) Activated Partial Thromboplast Time 26 SEC (23-33) Sodium Level 140 MMOL/L (136-145) Potassium Level 3.8 MMOL/L (3.5-5.1) Chloride Level 105 MMOL/L (98-107) Carbon Dioxide Level 26 MMOL/L (21-32) Anion Gap 9 (5-15) Blood Urea Nitrogen 9 mg/dL (7-18) Creatinine 0.8 MG/DL (0.55-1.30) Estimat Glomerular Filtration Rate > 60 mL/min (>60) Glucose Level 136 MG/DL (74-106) #H Hemoglobin A1c 11.0 % (4.5-6.2) H Uric Acid 4.6 MG/DL (2.6-7.2) Calcium Level 8.1 MG/DL (8.5-10.1) L Phosphorus Level 3.2 MG/DL (2.5-4.9) Magnesium Level 2.2 MG/DL (1.8-2.4) Total Bilirubin 0.4 MG/DL (0.2-1.0) Gamma Glutamyl Transpeptidase 29 U/L (5-85) Aspartate Amino Transf (AST/SGOT) 37 U/L (15-37) Alanine Aminotransferase (ALT/SGPT) 60 U/L (12-78) Alkaline Phosphatase 78 U/L (46-116) Total Creatine Kinase 316 U/L (26-308) H C-Reactive Protein, Quantitative < 0.4 mg/dL (0.00-0.90) Pro-B-Type Natriuretic Peptide 115 (0-125) Total Protein 7.3 G/DL (6.4-8.2) Albumin 3.3 G/DL (3.4-5.0) L Globulin 4.0 g/dL Albumin/Globulin Ratio 0.8 (1.0-2.7) L Triglycerides Level 211 MG/DL (0-200) H Cholesterol Level 166 MG/DL (< 200) LDL Cholesterol 110 mg/dL (<100) H HDL Cholesterol 32 MG/DL (40-60) L Cholesterol/HDL Ratio 5.2 (3.3-4.4) H Amylase Level 41 U/L (25-115) Lipase 117 U/L (73-393) Height (Feet): 5 Height (Inches): 9.00 Weight (Pounds): 219 General Appearance: no apparent distress, alert, overweight Cardiovascular: normal rate Abdominal Exam: normal bowel sounds, non tender, soft Extremities: normal range of motion Elizabeth Breen N.P. Jul 31, 2017 15:50
--- NOTE | 2017-07-31 17:46 | General Progress Note ---
Assessment/Plan Status: stable, progressing Subjective Neurologic/Psychiatric: Reports: anxiety, depressed, emotional problems Allergies: Coded Allergies: No Known Allergies (Verified , 10/01/10) Objective Last 24 Hour Vital Signs Date Time Temp Pulse Resp B/P (MAP) Pulse Ox O2 Delivery O2 Flow Rate FiO2 07/31/17 15:33 97.8 86 19 138/84 95 Room Air 07/31/17 11:57 97.5 104 21 144/95 95 Room Air 07/31/17 08:15 97.8 84 20 143/81 95 Room Air 07/31/17 04:00 97.5 67 20 119/70 96 Room Air 07/31/17 00:00 97.5 60 21 132/81 94 Room Air 07/30/17 20:00 97.7 65 21 136/77 93 Room Air Intake and Output 07/31/17 08/01/17 19:00 07:00 Intake Total 590 ml Output Total 400 ml Balance 190 ml Intake Oral 590 ml Output Urine Total 400 ml Laboratory Tests 07/31/17 05:30: White Blood Count 9.6, Red Blood Count 4.83, Hemoglobin 14.0L, Hematocrit 41.8L , Mean Corpuscular Volume 86, Mean Corpuscular Hemoglobin 29.1, Mean Corpuscular Hemoglobin Concent 33.6, Red Cell Distribution Width 13.1, Platelet Count 263, Mean Platelet Volume 6.3L, Neutrophils (%) (Auto) 59.2, Lymphocytes ( %) (Auto) 28.8, Monocytes (%) (Auto) 9.5, Eosinophils (%) (Auto) 1.8, Basophils (%) (Auto) 0.8, Activated Partial Thromboplast Time 26, Sodium Level 140, Potassium Level 3.8, Chloride Level 105, Carbon Dioxide Level 26, Anion Gap 9, Blood Urea Nitrogen 9, Creatinine 0.8, Estimat Glomerular Filtration Rate > 60, Glucose Level 136#H, Hemoglobin A1c 11.0H, Uric Acid 4.6, Calcium Level 8.1L, Phosphorus Level 3.2, Magnesium Level 2.2, Total Bilirubin 0.4, Gamma Glutamyl Transpeptidase 29, Aspartate Amino Transf (AST/SGOT) 37, Alanine Aminotransferase (ALT/SGPT) 60, Alkaline Phosphatase 78, Total Creatine Kinase 316H, C-Reactive Protein, Quantitative < 0.4, Pro-B-Type Natriuretic Peptide 115 , Total Protein 7.3, Albumin 3.3L, Globulin 4.0, Albumin/Globulin Ratio 0.8L, Triglycerides Level 211H, Cholesterol Level 166, LDL Cholesterol 110H, HDL Cholesterol 32L, Cholesterol/HDL Ratio 5.2H, Amylase Level 41, Lipase 117 Height (Feet): 5 Height (Inches): 9.00 Weight (Pounds): 219 General Appearance: no apparent distress, alert, overweight Neurologic: alert, oriented x 3, responsive, depressed affect Chuy Nagy M.D. Jul 31, 2017 17:46
--- NOTE | 2017-08-02 23:02 | Discharge Summary 2 SIG ---
DATE OF ADMISSION: 07/30/2017 DATE OF DISCHARGE: 07/31/2017 CONSULTANTS: 1. Chuy Nagy M.D. 2. Florentin Tijerina M.D. 3. Carmelo Biswas M.D. 4. Karli Goldsmith M.D. BRIEF HOSPITAL COURSE: The patient is a 52-year-old male with history of schizophrenia and chronic abdominal pain for years, presented to ED complaining of intractable abdominal pain. Patient points to the suprapubic area and was described to be constant and sharp with associated nausea and vomiting x2, which is nonbilious and nonbloody. There was no history of abdominal surgeries or prior endoscopies. On evaluation at ED, he was given Zofran. He has history of schizophrenia and was yelling. Haldol was given. Blood work showed hypokalemia and hyponatremia. He was started on IV hydration and was given potassium supplements. Urine toxicology was negative. EKG was in normal sinus rhythm. He was admitted to medical floor for evaluation of nausea and vomiting with associated hypokalemia. He was given IV hydration and was initially started on clear liquid diet. The patient complained of abdominal pain. On evaluation, abdomen was soft. Lipase was normal. Diet was advanced as tolerated. Abdominal ultrasound showed diffuse fatty change, negative for gallstones or dilated ducts, and no acute abnormality. He was diagnosed to have schizoaffective bipolar type disorder and was continued on Seroquel 200 mg at bedtime. Hyponatremia was assessed to be depletional. Electrolytes eventually improved. Hemoglobin A1c was 11. Blood sugar was monitored and was given sliding scale. He was tolerating diet and was eventually discharged home. FINAL DIAGNOSES: 1. Hyponatremia. 2. Hypokalemia. 3. Hyperglycemia. 4. Hypertension. 5. Nausea and vomiting. 6. Acute on chronic abdominal pain. 7. Mild leukocytosis. 8. Schizoaffective disorder, bipolar type. DISPOSITION: The patient was discharged home. DISCHARGE MEDICATIONS: Refer to medication list. FOLLOWUP: Follow up with PMD in a week. Kyler Parham M.D. I have been assigned to dictate discharge summary on this account and I was not involved in the patient's management. Catrachita Baird N.P. DR: LAUREL JOB#: [id number] CC: JESUS
== END 2017-07-31 17:08 | disposition home or self-care (01) | DRG 425 ==
LOC: EDBD 03:20 → EDUNIT# 03:20 → EMR 03:36 → EDBD 03:36 → 4E 04:34 → EDBEDREQ 05:27
DX: E87.1 Hypo-osmolality and hyponatremia (principal); E11.8 Type 2 diabetes mellitus with unspecified complications; E87.6 Hypokalemia; I10 Essential (primary) hypertension; R11.2 Nausea with vomiting, unspecified; F25.0 Schizoaffective disorder, bipolar type; G89.29 Other chronic pain; R10.9 Unspecified abdominal pain; Z79.84 Long term (current) use of oral hypoglycemic drugs
CPT/HCPCS: 36415; 76700; 80053; 80061; 80300; 81001; 81003; 82150; 82533; 82550; 82977; 83036; 83690; 83735; 83880; 83930; 83935; 84100; 84300; 84439; 84443; 84481; 84484; 84550; 85025; 85730; 86140; 93005; 99285; J2405; J8499

== ENCOUNTER 2020-01-01 07:39 | Emergency (ER) | payer MEDICAID ==
[~2020-01-01] VITALS: Ht 172.7 cm; Wt 99.8 kg
--- NOTE | 2020-01-01 07:54 | Emergency Room Report ---
History of Present Illness General Chief Complaint: Abdominal Pain Source: Patient, EMS Present Illness HPI Patient presents with complaints of mid lower abdominal pain ongoing for the past 4 to 5 days patient reports multiple episodes of diarrhea Denies any vomiting denies any fevers or chills denies any chest pain or shortness of breath Denies any recent travel Denies any rash Denies any blood in the stool Allergies: Coded Allergies: No Known Allergies (Verified , 10/01/10) Patient History Past Medical History: see triage record Reviewed Nursing Documentation: PMH: Agreed; PSxH: Agreed Nursing Documentation-PMH Past Medical History: No History, Except For Hx Cardiac Problems: Yes Hx Hypertension: Yes Hx Asthma: Yes Hx Diabetes: Yes Hx Cancer: No Hx Gastrointestinal Problems: Yes History Of Psychiatric Problem: Yes - schizophrenia Hx Neurological Problems: No Review of Systems All Other Systems: negative except mentioned in HPI Physical Exam Vital Signs Date Time Temp Pulse Resp B/P (MAP) Pulse Ox O2 Delivery O2 Flow Rate FiO2 01/01/20 07:35 98.2 75 17 177/104 (128) 95 Room Air Sp02 EP Interpretation: reviewed, normal General Appearance: well appearing, no apparent distress Head: normocephalic, atraumatic Eyes: bilateral eye PERRL, bilateral eye EOMI ENT: hearing grossly normal, normal pharynx, TMs + canals normal, uvula midline Neck: full range of motion, supple, no meningismus, no bony tend Respiratory: lungs clear, normal breath sounds, no rhonchi, no respiratory distress, no retraction, no accessory muscle use Cardiovascular #1: normal peripheral pulses, regular rate, rhythm, no edema, no gallop, no JVD, no murmur Gastrointestinal: normal bowel sounds, non tender, soft, no mass, no organomegaly, non-distended, no guarding, no hernia, no pulsatile mass, no rebound Genitourinary: no CVA tenderness Musculoskeletal: normal inspection Neurologic: motor strength/tone normal, mental health counselor III-XII nml as tested, oriented x3 , sensory intact, responsive Psychiatric: mood/affect normal Skin: no rash Lymphatic: normal inspection, no adenopathy Medical Decision Making Diagnostic Impression: Primary Impression: Abdominal pain ER Course With the history exam and presentation, multiple differentials considered, including but not limited to appendicitis, gastritis, cholecystitis, diverticulitis Patient's blood work and imaging is normal patient continues to rest well given some of the diarrhea complaints possible enteritis entertained patient otherwise stable for conservative outpatient trial Labs Test 01/01/20 08:05 White Blood Count 9.9 K/UL (4.8-10.8) Red Blood Count 5.10 M/UL (4.70-6.10) Hemoglobin 15.3 G/DL (14.2-18.0) Hematocrit 43.1 % (42.0-52.0) Mean Corpuscular Volume 85 FL (80-99) Mean Corpuscular Hemoglobin 29.9 PG (27.0-31.0) Mean Corpuscular Hemoglobin Concent 35.4 G/DL (32.0-36.0) Red Cell Distribution Width 11.5 % (11.6-14.8) Platelet Count 312 K/UL (150-450) Mean Platelet Volume 5.4 FL (6.5-10.1) Neutrophils (%) (Auto) 70.7 % (45.0-75.0) Lymphocytes (%) (Auto) 18.3 % (20.0-45.0) Monocytes (%) (Auto) 8.7 % (1.0-10.0) Eosinophils (%) (Auto) 1.3 % (0.0-3.0) Basophils (%) (Auto) 0.9 % (0.0-2.0) Urine Color Pale yellow Urine Appearance Clear Urine pH 7 (4.5-8.0) Urine Specific [place] 1.005 (1.005-1.035) Urine Protein Negative (NEGATIVE) Urine Glucose (UA) 2+ (NEGATIVE) Urine Ketones Negative (NEGATIVE) Urine Blood Negative (NEGATIVE) Urine Nitrite Negative (NEGATIVE) Urine Bilirubin Negative (NEGATIVE) Urine Urobilinogen Normal MG/DL (0.0-1.0) Urine Leukocyte Esterase 1+ (NEGATIVE) Urine RBC 0 /HPF (0 - 0) Urine WBC 2-4 /HPF (0 - 0) Urine Squamous Epithelial Cells Occasional /LPF Urine Bacteria Occasional /HPF (NONE) Sodium Level 140 MMOL/L (136-145) Potassium Level 4.3 MMOL/L (3.5-5.1) Chloride Level 101 MMOL/L (98-107) Carbon Dioxide Level 30 MMOL/L (21-32) Anion Gap 9 mmol/L (5-15) Blood Urea Nitrogen 6 mg/dL (7-18) Creatinine 0.9 MG/DL (0.55-1.30) Estimat Glomerular Filtration Rate > 60 mL/min (>60) Glucose Level 239 MG/DL (74-106) Calcium Level 8.9 MG/DL (8.5-10.1) Total Bilirubin 0.3 MG/DL (0.2-1.0) Aspartate Amino Transf (AST/SGOT) 15 U/L (15-37) Alanine Aminotransferase (ALT/SGPT) 25 U/L (12-78) Alkaline Phosphatase 79 U/L (46-116) Total Protein 8.0 G/DL (6.4-8.2) Albumin 3.8 G/DL (3.4-5.0) Globulin 4.2 g/dL Albumin/Globulin Ratio 0.9 (1.0-2.7) Lipase 93 U/L (73-393) Urine Opiates Screen Negative (NEGATIVE) Urine Barbiturates Screen Negative (NEGATIVE) Phencyclidine (PCP) Screen Negative (NEGATIVE) Urine Amphetamines Screen Negative (NEGATIVE) Urine Benzodiazepines Screen Negative (NEGATIVE) Urine Cocaine Screen Negative (NEGATIVE) Urine Marijuana (THC) Screen Negative (NEGATIVE) CT/MRI/US Diagnostic Results CT/MRI/US Diagnostic Results : Impression CT abdomen pelvisImpression: Limited assessment of the GI tract, due to lack of enteric contrast administered Mildly prominent left upper quadrant small bowel loops, may be baseline for this patient but could represent mild enteritis changes. No evidence of bowel obstruction. Moderate size hiatal hernia Small left inguinal hernia containing only fat Last Vital Signs Date Time Temp Pulse Resp B/P (MAP) Pulse Ox O2 Delivery O2 Flow Rate FiO2 01/01/20 07:35 98.2 75 17 177/104 (128) 95 Room Air Status: improved Disposition: HOME, SELF-CARE Condition: Improved Scripts Ondansetron* (ZOFRAN*) 4 Mg Tablet 4 MG ORAL Q8HR PRN for Nausea & Vomiting, #10 TAB Prov: Willard Ribeiro DO 01/01/20 Additional Instructions: Patient is provided with the discharge instructions notified to follow up with primary doctor in the next 2-3 days otherwise return to the er with any worsening symptoms. Please note that this report is being documented using [employer] technology. This can lead to erroneous entry secondary to incorrect interpretation by the dictating instrument. Willard Ribeiro DO Jan 01, 2020 07:54
--- NOTE | 2020-01-01 08:15 | NUR ---
ED Nurse Note: pt brought in by ambulance on gurney from home due to abdominal pain x12 hrs. pt denies any n/v/d. pt aaox4, calm and cooperative. pt in gown. no respiratory or cardiac distress noted. ERMD by bedside.
[2020-01-01 08:16] VITALS: BP 120/8
--- NOTE | 2020-01-01 08:20 | NUR ---
saline lock in place venous blood send to lab. urine obtained
--- NOTE | 2020-01-01 08:21 | NUR ---
to ct scan via [facility]
--- NOTE | 2020-01-01 08:30 | NUR ---
ED Nurse Note: pt back from CT in stable condition.
[2020-01-01 08:33] LABS: BASOPHILS % (AUTO) 0.9 % (0.0-2.0); EOSINOPHILS % (AUTO) 1.3 % (0.0-3.0); HEMATOCRIT 43.1 % (42.0-52.0); HEMOGLOBIN 15.3 G/DL (14.2-18.0); LYMPHOCYTES % (AUTO) 18.3 % (20.0-45.0); MEAN CORPUSCULAR VOLUME 85 FL (80-99); MONOCYTES % (AUTO) 8.7 % (1.0-10.0); NEUTROPHILS % (AUTO) 70.7 % (45.0-75.0); PLATELET COUNT 312 K/UL (150-450); RED CELL DISTRIBUTION WIDTH 11.5 % (11.6-14.8); WHITE BLOOD COUNT 9.9 K/UL (4.8-10.8)
[2020-01-01 08:35] LABS: ANION GAP 9 mmol/L (5-15); APPEARANCE,URINE CLEAR; BILIRUBIN, URINE NEGATIVE (NEGATIVE); BLOOD UREA NITROGEN 6 mg/dL (7-18); CALCIUM 8.9 MG/DL (8.5-10.1); CARBON DIOXIDE 30 MMOL/L (21-32); CHLORIDE 101 MMOL/L (98-107); COLOR,URINE PALE YELLOW; CREATININE 0.9 MG/DL (0.55-1.30); GLUCOSE, URINE (UA) 2+ (NEGATIVE); KETONES,URINE NEGATIVE (NEGATIVE); LEUKOCYTE ESTERASE ,URINE 1+ (NEGATIVE); NITRITE,URINE NEGATIVE (NEGATIVE); PH,URINE 7 (4.5-8.0); POTASSIUM 4.3 MMOL/L (3.5-5.1); PROTEIN,URINE NEGATIVE (NEGATIVE); SODIUM 140 MMOL/L (136-145); UROBILINOGEN,URINE NORMAL MG/DL (0.0-1.0)
[2020-01-01 08:46] LABS: ALANINE AMINOTRANSFERASE 25 U/L (12-78); ALBUMIN 3.8 G/DL (3.4-5.0); ALBUMIN/GLOBULIN RATIO 0.9 (1.0-2.7); ALKALINE PHOSPHATASE 79 U/L (46-116); ASPARTATE AMINO TRANSFERASE 15 U/L (15-37); BILIRUBIN,TOTAL 0.3 MG/DL (0.2-1.0)
--- NOTE | 2020-01-01 09:04 | Diagnostic Imaging Report ---
Indication: Abdominal pain, multiple episodes of diarrhea Technique: Spiral acquisitions obtained through the abdomen and pelvis. No oral contrast utilized, per emergency room physician request No IV contrast utilized, per referring physician request.. Multiplanar reconstructions were generated. Total dose length product 666 mGycm. CTDIvol(s) 11 mGy. Dose reduction achieved using automated exposure control Comparison: None Findings: Lack of enteric contrast limits assessment of the GI tract. The appendix is normal. No small bowel distention. No free or loculated intraperitoneal gas or fluid is evident. There is a moderate-sized hiatal hernia. The remainder of the stomach is unremarkable. The duodenum is unremarkable. There are a few very mildly prominent small bowel loops in the left upper quadrant with gradual transition to normal caliber mid and distal small bowel. No evidence of colonic diverticulosis or diverticulitis. There is a small left inguinal hernia that contains only fat. Lack of IV contrast limits assessment of the solid organs. The liver, gallbladder, bile ducts, pancreas, spleen, adrenals, kidneys are all unremarkable. No ureteral calculi, hydronephrosis, or hydroureter. No retroperitoneal or mesenteric mass or adenopathy. No pelvic mass or adenopathy. The included lung bases are clear. The bones are unremarkable. Impression: Limited assessment of the GI tract, due to lack of enteric contrast administered Mildly prominent left upper quadrant small bowel loops, may be baseline for this patient but could represent mild enteritis changes. No evidence of bowel obstruction. Moderate size hiatal hernia Small left inguinal hernia containing only fat The CT scanner at [facility] is accredited by the [employer] and the scans are performed using protocols designed to limit radiation exposure to as low as reasonably achievable to attain images of sufficient resolution adequate for diagnostic evaluation.
[2020-01-01] MEDS ORDERED: ZOFRAN4 M3 ORAL (10:20)
[2020-01-01 10:37] VITALS: BP 132/56
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
--- NOTE | 2020-01-01 10:39 | NUR ---
ER DISCHARGE NOTE: Patien cleared for discharge to home per ERMD, pt is aaox4, on room air, VSS. pt given dc instructions and prescription, pt verbalized understanding but refused to sign discharge instructions and witnessed by electronic bench technician, security, and Yenifer RN. pt id band removed. pt pulled out own IV site. pt took all belongings. pt ambulated and assisted out with two security guards and electronic bench technician.
== END 2020-01-01 12:19 | disposition home or self-care (01) ==
LOC: EDBD 07:39 → EMR 08:01
DX: R10.30 Lower abdominal pain, unspecified (principal); R19.7 Diarrhea, unspecified; K44.9 Diaphragmatic hernia without obstruction or gangrene; K40.90 Unilateral inguinal hernia, without obstruction or gangrene, not specified as recurrent; I10 Essential (primary) hypertension; J45.909 Unspecified asthma, uncomplicated; E11.9 Type 2 diabetes mellitus without complications; F20.9 Schizophrenia, unspecified
CPT/HCPCS: 36415; 74176; 80053; 80307; 81003; 83690; 85025; Z7502; 99284

== ENCOUNTER 2020-10-14 17:09 | Emergency (ER) | payer MEDICAID ==
[~2020-10-14] VITALS: Ht 177.8 cm; Wt 108.9 kg
[~2020-10-14 17:09] MED LIST changes: +ZOFRAN4 M3 ORAL
[2020-10-14 17:20] VITALS: BP 145/67
--- NOTE | 2020-10-14 17:20 | NUR ---
ED Nurse Note: Patient was BIBA RA 29 from home due to OD on unknown meds. Versed was given, patient presented sleeping, VSS at this time.
--- NOTE | 2020-10-14 17:20 | NUR ---
ED Nurse Note: patient was placed in hard restrains
--- NOTE | 2020-10-14 17:28 | Emergency Room Report ---
History of Present Illness General Chief Complaint: Overdose Source: Family Member, EMS, Law Enforcement (Roberto Monson MD) Present Illness HPI Paramedics were summoned by the patient's brother. He took "all of his medications and an attempt to overdose". The patient was agitated and combative at the scene. Paramedics had to give 10 of Versed IM to control his outbursts. Looking at medicine bottles - most have appropriate number of pills except for undated Tylenol. The patient is not giving any answers questions at this time. He has been medicated with Versed. See medical decision making for further history. (Roberto Monson MD) Allergies: Coded Allergies: No Known Allergies (Verified , 10/01/10) COVID-19 Screening Contact w/high risk pt: No Experienced COVID-19 symptoms?: No COVID-19 Testing performed AMPOULE EXAMINER: No (Roberto Monson MD) Patient History Limited by: medical condition Past Medical History: see triage record, old chart reviewed, psych hx - Schizophrenia Social History: Denies: smoking, alcohol use, drug use Social History Narrative Bel[place]ian-speaking, lives with his brother Reviewed Nursing Documentation: PMH: Agreed; PSxH: Agreed (Roberto Monson MD) Nursing Documentation-PMH Hx Cardiac Problems: Yes Hx Hypertension: Yes Hx Asthma: Yes Hx Diabetes: Yes Hx Cancer: No Hx Gastrointestinal Problems: Yes History Of Psychiatric Problem: Yes Hx Neurological Problems: No (Roberto Monson MD) Review of Systems All Other Systems: limited (Roberto Monson MD) Physical Exam Vital Signs Date Time Temp Pulse Resp B/P (MAP) Pulse Ox O2 Delivery O2 Flow Rate FiO2 10/14/20 17:12 98.2 90 20 124/67 (86) 95 Room Air Sp02 EP Interpretation: reviewed, normal General Appearance: well appearing, no apparent distress, lethargic Head: normocephalic Eyes: bilateral eye PERRL, bilateral eye Scleral Injection ENT: moist mucus membranes - Poor dentition with carious lower teeth, other - Positive gag Neck: supple Respiratory: chest non-tender, lungs clear, normal breath sounds Cardiovascular #1: regular rate, rhythm Cardiovascular #2: 2+ radial (R) Gastrointestinal: normal inspection, non tender, non-distended, decreased bowel sounds Musculoskeletal: back normal, normal range of motion Neurologic: motor strength/tone normal, sensory intact, other - Lethargic Psychiatric: other - Not answering questions Skin: no rash (Roberto Monson MD) Procedures Critical Care Time Critical Care Time Total Critical Care Time: 50 min bedside evaluation and treatment excludes procedures (EKG). Reason for critical care: Lethargy, violent behavior, restraints, suicidal ideation Possible complications: hypotension, hypertension, AR, shock, arrhythmias, metabolic acidosis, end organ damage, respiratory failure. Interventions: Restraints, sedation, repeat evaluations discussion with paramedics and police Course: Patient presented after apparent self inflicted overdose. Combative in the field and sedated with Versed. Evaluation for restraints. Increase sedation. Repeat sedation. Review of medications. Repeat evaluation after patient more sedate and removal of restraints. Discussion with patient of 5150. Consultations: nursing staff, EMS, police Performed by: Dr. Monson Tolerated well condition = serious (Roberto Monson MD) Medical Decision Making Behavioral: Other Reaction to Intervention: Other Restraint Reassesment I, Roberto Monson MD, have personally evaluated this patient. Laboratory tests have been reviewed and addressed accordingly. The patient is deemed to present a danger to themselves and/or others. This is based on the exam, history (provided by patient, EMS/[employer] and/or family) and observed or reported behavior. Attempts for non-invasive measures have been considered and/or attempted, however, have been futile. It is in the best interest of the nursing staff, the patient, and others involved in this patient's care that behavioral restraints be applied. Patient evaluation reveals the following: (Roberto Monson MD) Diagnostic Impression: Primary Impression: Drug overdose Qualified Codes: T50.902A - Poisoning by unspecified drugs, medicaments and biological substances, intentional self-harm, initial encounter Additional Impressions: Suicide gesture Qualified Codes: X83.8XXA - Intentional self-harm by other specified means, initial encounter Schizophrenia Qualified Codes: F20.9 - Schizophrenia, unspecified ER Course Patient presents after alleged self-inflicted overdose. Differential includes suicidal gesture, exacerbation of underlying psychiatric illness, electrolyte imbalance, delirium of unknown etiology amongst others. There is no evidence of head trauma and CT of the head is not indicated. Patient has a nonfocal neurologic exam although he has global lethargy. Evaluation with labs, EKG, chest x-ray. Patient treated with IV hydration and sedation. Due to the history of extreme violence violent restraints are indicated. Patient agitated. Trying to get out of restraints. Not listening to redirection. Sedation. Review of medications taken. Still in hard restraints. Repeat Haldol for better sedation. 1999 Sedated but medically clear for psychiatric evaluation. Will not be able to conduct interview at this time. 2034 Discussed with niece who states he did not want to harm self, but just took extra doses in order to sleep. Patient now cooperative and not requiring restraints. He states he definitely took medications in attempt at self-harm. He will not discussed the reasons that led up to this. He also will not state what medications he took. Patient needs either psychiatric hospitalization or evaluation by psychiatrist. Patient signed out to Dr. Thomas. Laboratory Tests Test 10/14/20 17:15 10/14/20 19:00 Urine Color Pale yellow Urine Appearance Clear Urine pH 7 (4.5-8.0) Urine Specific [place] 1.005 (1.005-1.035) Urine Protein Negative (NEGATIVE) Urine Glucose (UA) 2+ (NEGATIVE) H Urine Ketones Negative (NEGATIVE) Urine Blood Negative (NEGATIVE) Urine Nitrite Negative (NEGATIVE) Urine Bilirubin Negative (NEGATIVE) Urine Urobilinogen Normal MG/DL (0.0-1.0) Urine Leukocyte Esterase Negative (NEGATIVE) Sodium Level 141 MMOL/L (136-145) Potassium Level 3.7 MMOL/L (3.5-5.1) Chloride Level 104 MMOL/L (98-107) Carbon Dioxide Level 28 MMOL/L (21-32) Anion Gap 9 mmol/L (5-15) Blood Urea Nitrogen 8 mg/dL (7-18) Creatinine 1.1 MG/DL (0.55-1.30) Estimated Glomerular Filtration Rate > 60 mL/min (>60) Glucose Level 147 MG/DL (74-106) H Calcium Level 8.4 MG/DL (8.5-10.1) L Total Bilirubin 0.2 MG/DL (0.2-1.0) Aspartate Amino Transferase (AST) 24 U/L (15-37) Alanine Aminotransferase (ALT) 38 U/L (12-78) Alkaline Phosphatase 67 U/L (46-116) Total Creatine Kinase 240 U/L (26-308) Troponin I 0.001 ng/mL (0.000-0.056) Total Protein 7.0 G/DL (6.4-8.2) Albumin 3.4 G/DL (3.4-5.0) Globulin 3.6 g/dL Albumin/Globulin Ratio 0.9 (1.0-2.7) L Salicylates Level 2.2 ug/mL (2.8-20) L Urine Opiates Screen Negative (NEGATIVE) Acetaminophen Level < 2 MCG/ML (10-30) L Urine Barbiturates Screen Negative (NEGATIVE) Phencyclidine (PCP) Screen Negative (NEGATIVE) Urine Amphetamines Screen Negative (NEGATIVE) Urine Benzodiazepines Screen Negative (NEGATIVE) Urine Cocaine Screen Negative (NEGATIVE) Urine Marijuana (THC) Screen Negative (NEGATIVE) Serum Alcohol < 3 mg/dL White Blood Count 10.9 K/UL (4.8-10.8) H Red Blood Count 4.86 M/UL (4.70-6.10) Hemoglobin 14.5 G/DL (14.2-18.0) Hematocrit 40.6 % (42.0-52.0) L Mean Corpuscular Volume 84 FL (80-99) Mean Corpuscular Hemoglobin 29.8 PG (27.0-31.0) Mean Corpuscular Hemoglobin Concent 35.7 G/DL (32.0-36.0) Red Cell Distribution Width 14.1 % (11.6-14.8) Platelet Count 285 K/UL (150-450) Mean Platelet Volume 6.2 FL (6.5-10.1) L Neutrophils (%) (Auto) 64.8 % (45.0-75.0) Lymphocytes (%) (Auto) 23.3 % (20.0-45.0) Monocytes (%) (Auto) 8.8 % (1.0-10.0) Eosinophils (%) (Auto) 1.7 % (0.0-3.0) Basophils (%) (Auto) 1.4 % (0.0-2.0) (Roberto Monson MD) ER Course Assumed care of the patient from the previous provider at approximately 0600. Please refer to initial note for full history and physical exam. Briefly, 55-year-old male brought in on 5150 hold for suicidal gesture and reported intentional ingestion of medication. Patient is resting company has been emergency department for over 18 hours. Denies suicidality homicidality. Labs returned within normal limits. Patient spoke with our psychiatrist, Dr. Nagy, who has lifted the 5150 hold believing he is no longer a danger to self. In conjunction with Dr. Nagy we have decided to refill a brief course of the patient's fluoxetine. We will do 10 mg every morning. He will be discharged to the care of his family. Follow-up with psychiatry and PMD as soon as possible. Laboratory Tests Test 10/14/20 17:15 10/14/20 19:00 Urine Color Pale yellow Urine Appearance Clear Urine pH 7 (4.5-8.0) Urine Specific [place] 1.005 (1.005-1.035) Urine Protein Negative (NEGATIVE) Urine Glucose (UA) 2+ (NEGATIVE) H Urine Ketones Negative (NEGATIVE) Urine Blood Negative (NEGATIVE) Urine Nitrite Negative (NEGATIVE) Urine Bilirubin Negative (NEGATIVE) Urine Urobilinogen Normal MG/DL (0.0-1.0) Urine Leukocyte Esterase Negative (NEGATIVE) Sodium Level 141 MMOL/L (136-145) Potassium Level 3.7 MMOL/L (3.5-5.1) Chloride Level 104 MMOL/L (98-107) Carbon Dioxide Level 28 MMOL/L (21-32) Anion Gap 9 mmol/L (5-15) Blood Urea Nitrogen 8 mg/dL (7-18) Creatinine 1.1 MG/DL (0.55-1.30) Estimated Glomerular Filtration Rate > 60 mL/min (>60) Glucose Level 147 MG/DL (74-106) H Calcium Level 8.4 MG/DL (8.5-10.1) L Total Bilirubin 0.2 MG/DL (0.2-1.0) Aspartate Amino Transferase (AST) 24 U/L (15-37) Alanine Aminotransferase (ALT) 38 U/L (12-78) Alkaline Phosphatase 67 U/L (46-116) Total Creatine Kinase 240 U/L (26-308) Troponin I 0.001 ng/mL (0.000-0.056) Total Protein 7.0 G/DL (6.4-8.2) Albumin 3.4 G/DL (3.4-5.0) Globulin 3.6 g/dL Albumin/Globulin Ratio 0.9 (1.0-2.7) L Salicylates Level 2.2 ug/mL (2.8-20) L Urine Opiates Screen Negative (NEGATIVE) Acetaminophen Level < 2 MCG/ML (10-30) L Urine Barbiturates Screen Negative (NEGATIVE) Phencyclidine (PCP) Screen Negative (NEGATIVE) Urine Amphetamines Screen Negative (NEGATIVE) Urine Benzodiazepines Screen Negative (NEGATIVE) Urine Cocaine Screen Negative (NEGATIVE) Urine Marijuana (THC) Screen Negative (NEGATIVE) Serum Alcohol < 3 mg/dL White Blood Count 10.9 K/UL (4.8-10.8) H Red Blood Count 4.86 M/UL (4.70-6.10) Hemoglobin 14.5 G/DL (14.2-18.0) Hematocrit 40.6 % (42.0-52.0) L Mean Corpuscular Volume 84 FL (80-99) Mean Corpuscular Hemoglobin 29.8 PG (27.0-31.0) Mean Corpuscular Hemoglobin Concent 35.7 G/DL (32.0-36.0) Red Cell Distribution Width 14.1 % (11.6-14.8) Platelet Count 285 K/UL (150-450) Mean Platelet Volume 6.2 FL (6.5-10.1) L Neutrophils (%) (Auto) 64.8 % (45.0-75.0) Lymphocytes (%) (Auto) 23.3 % (20.0-45.0) Monocytes (%) (Auto) 8.8 % (1.0-10.0) Eosinophils (%) (Auto) 1.7 % (0.0-3.0) Basophils (%) (Auto) 1.4 % (0.0-2.0) (Wong Hoover MD) Rhythm Strip Diag. Results EP Interpretation: yes Rhythm: NSR, no PVC's, no ectopy (Roberto Monson MD) Chest X-Ray Diagnostic Results Chest X-Ray Diagnostic Results : Chest X-Ray Ordered: Yes # of Views/Limited/Complete: 1 View Indication: Other Interpretation: no effusion, no pneumothorax, other - Linear atelectasis for volumes increased hickey bilaterally basis Impression: Other Electronically Signed by: Electronically signed by Roberto Monson MD (Roberto Monson MD) Last Vital Signs Date Time Temp Pulse Resp B/P (MAP) Pulse Ox O2 Delivery O2 Flow Rate FiO2 10/14/20 21:41 65 20 100 Room Air 10/14/20 19:20 98.3 125/61 Status: improved (Roberto Monson MD) Disposition: HOME, SELF-CARE Condition: Stable Scripts Fluoxetine Hcl* (FLUOXETINE HCL*) 10 Mg Tablet 10 MG ORAL DAILY for Mood for 14 Days, #14 TAB Prov: Wong Hoover MD 10/15/20 Roberto Monson MD Oct 14, 2020 17:28 Wong Hoover MD Oct 15, 2020 11:32
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
--- NOTE | 2020-10-14 17:41 | Diagnostic Imaging Report ---
EXAM: XR Chest, 1 View CLINICAL HISTORY: ALOC TECHNIQUE: Frontal view of the chest. COMPARISON: 11/15/15 FINDINGS: Lungs: Bibasilar prominent linear interstitial markings could be due to low lung volumes, although pulmonary edema or atypical infection could also have this appearance. Low lung volumes with bronchovascular crowding. Pleural space: Unremarkable. No pneumothorax. Heart: Cardiomegaly. Mediastinum: Unremarkable. Bones/joints: No acute abnormality IMPRESSION: 1. Cardiomegaly. 2. Bibasilar prominent linear interstitial markings could be due to low lung volumes, although pulmonary edema or atypical infection could also have this appearance. 3. Low lung volumes with bronchovascular crowding.
[2020-10-14 18:28] LABS: APPEARANCE,URINE CLEAR; BILIRUBIN, URINE NEGATIVE (NEGATIVE); COLOR,URINE PALE YELLOW; GLUCOSE, URINE (UA) 2+ (NEGATIVE); KETONES,URINE NEGATIVE (NEGATIVE); LEUKOCYTE ESTERASE ,URINE NEGATIVE (NEGATIVE); NITRITE,URINE NEGATIVE (NEGATIVE); PH,URINE 7 (4.5-8.0); PROTEIN,URINE NEGATIVE (NEGATIVE); UROBILINOGEN,URINE NORMAL MG/DL (0.0-1.0)
[2020-10-14] MEDS ORDERED: DOK100 M1 PO (18:28)
[2020-10-14] MEDS ORDERED: VISTARIL10 MG ORAL (18:28)
[2020-10-14] MEDS ORDERED: SENNA8.6 M2 PO (18:28)
[2020-10-14] MEDS ORDERED: TRIHEXYPHENIDYL2 MG ORAL (18:28)
[2020-10-14] MEDS ORDERED: ACETAMINOPHEN-1 EAC1 ORAL (18:28)
[2020-10-14] MEDS ORDERED: TEMAZEPAM15 MG ORAL (18:28)
[2020-10-14] MEDS ORDERED: CEPHALEXIN500 MG ORAL (18:28)
[2020-10-14] MEDS ORDERED: AMLODIPINE BESYL5 MG ORAL (18:28)
[2020-10-14] MEDS ORDERED: LOSARTAN-HCTZ1 EAC1 ORAL (18:28)
[2020-10-14] MEDS ORDERED: MIRTAZAPINE30 MG ORAL (18:28)
[2020-10-14] MEDS ORDERED: QUETIAPINE FUMA50 MG ORAL (18:28)
[2020-10-14] MEDS ORDERED: METFORMIN HCL850 M1 ORAL (18:28)
[2020-10-14] MEDS ORDERED: TRAZODONE HCL150 MG ORAL (18:28)
[2020-10-14] MEDS ORDERED: DiphenhydrAMINE 50mg/ml Inj IVP ONE (18:30)
[2020-10-14] MEDS ORDERED: Haloperidol 5mg/ml Inj IM ONE ×2 (18:30→20:00)
[2020-10-14 18:47] LABS: ANION GAP 9 mmol/L (5-15); BLOOD UREA NITROGEN 8 mg/dL (7-18); CALCIUM 8.4 MG/DL (8.5-10.1); CARBON DIOXIDE 28 MMOL/L (21-32); CHLORIDE 104 MMOL/L (98-107); CREATININE 1.1 MG/DL (0.55-1.30); POTASSIUM 3.7 MMOL/L (3.5-5.1); SODIUM 141 MMOL/L (136-145)
[2020-10-14 18:52] LABS: ALANINE AMINOTRANSFERASE 38 U/L (12-78); ALBUMIN 3.4 G/DL (3.4-5.0); ALBUMIN/GLOBULIN RATIO 0.9 (1.0-2.7); ASPARTATE AMINO TRANSFERASE 24 U/L (15-37); BILIRUBIN,TOTAL 0.2 MG/DL (0.2-1.0); CREATINE KINASE 240 U/L (26-308)
[2020-10-14 19:05] LABS: ALKALINE PHOSPHATASE 67 U/L (46-116)
--- NOTE | 2020-10-14 19:16 | NUR ---
HAND-OFF: Report given to JEROME Angel.
[2020-10-14 19:20] VITALS: BP 125/61
--- NOTE | 2020-10-14 19:20 | NUR ---
ED Nurse Note: RN bedside monitoring patient. Patient is on 5150 psychiatric hold that was put in place by [employer].
--- NOTE | 2020-10-14 19:20 | NUR ---
ED Nurse Note: Report received from JEROME Logan. Patient becomes aggressive when aroused, otherwise he appears to be sleeping with eyes closed. New IV line had to be established and patient attempts to hit RN with closed fists; not ready for removal of restraints at this time. Will continue to reassess. Patient is otherwise breathing normal. No signs of distress.
[2020-10-14 19:31] LABS: BASOPHILS % (AUTO) 1.4 % (0.0-2.0); EOSINOPHILS % (AUTO) 1.7 % (0.0-3.0); HEMATOCRIT 40.6 % (42.0-52.0); HEMOGLOBIN 14.5 G/DL (14.2-18.0); LYMPHOCYTES % (AUTO) 23.3 % (20.0-45.0); MEAN CORPUSCULAR VOLUME 84 FL (80-99); MONOCYTES % (AUTO) 8.8 % (1.0-10.0); NEUTROPHILS % (AUTO) 64.8 % (45.0-75.0); PLATELET COUNT 285 K/UL (150-450); RED BLOOD COUNT 4.86 M/UL (4.70-6.10); RED CELL DISTRIBUTION WIDTH 14.1 % (11.6-14.8); WHITE BLOOD COUNT 10.9 K/UL (4.8-10.8)
--- NOTE | 2020-10-14 21:41 | NUR ---
ED Nurse Note: Restraints removed at this time. See restraints flowsheet. CMS is intact all on extremities, no skin breakdown from restraints noted. Patient is calm and cooperative. Patient able get out of bed, stand and ambulate with steady gait.
--- NOTE | 2020-10-14 21:44 | NUR ---
ED Nurse Note: ERMD bedside speaking with patient. Patient is calm and cooperative and answering questions.
--- NOTE | 2020-10-14 21:55 | NUR ---
ED Nurse Note: Patient states he did take medications with intent to harm himself. He is not clear as to why he wants to kill himself, but has been having suicidal ideations.
--- NOTE | 2020-10-14 21:55 | NUR ---
ED Nurse Note: Patient now cooperative enough and able to follow commands to be able to change into gown. Patient placed into psych gown. All belongings taken from patient and locked in locker #2 along with bag of medications.
[2020-10-15 00:05] VITALS: BP 125/86
--- NOTE | 2020-10-15 00:05 | NUR ---
ED Nurse Note: Patient is in bed with eyes closed. RN bedside monitoring patient. Vital signs are stable.
[2020-10-15 03:00] VITALS: BP 122/74
--- NOTE | 2020-10-15 03:00 | NUR ---
ED Nurse Note: Patient is in bed and appears to be sleeping. Respirations are even and unlabored. No signs of distress.
--- NOTE | 2020-10-15 05:46 | NUR ---
ED Nurse Note: Patient woke up and Dc'd IV. He was reoriented to situation and placed back into bed. RN monitoring. Vital signs stable. Patient is not aggressive.
[2020-10-15 05:47] VITALS: BP 128/85
--- NOTE | 2020-10-15 06:10 | NUR ---
ED Nurse Note: Patient awake and attempting to leave. He is stating he wants to go home. He is anxious. Will administer ISELA jones bedside.
[2020-10-15] MEDS ORDERED: Haloperidol 5mg/ml Inj IM ONE (06:15)
--- NOTE | 2020-10-15 07:05 | NUR ---
HAND-OFF: Report given to JEROME Street.
[2020-10-15] MEDS ORDERED: LORazepam Inj 2mg/ml 1ml IV ONE (07:30)
--- NOTE | 2020-10-15 07:57 | NUR ---
ED Nurse Note: sitter at bedside.
--- NOTE | 2020-10-15 09:47 | NUR ---
ED Nurse Note: Pt awake, appears to be calm, asks questions to his nurse, "when can i leave?", nurse explained to pt, plan of care, pt nods, no acute distress noted.
--- NOTE | 2020-10-15 11:22 | NUR ---
ED Nurse Note: Dr. Nagy assessing the patient
--- NOTE | 2020-10-15 11:25 | NUR ---
ED Nurse Note: Dr. Nagy lifted the 5150 hold
[2020-10-15] MEDS ORDERED: FLUOXETINE HCL10 M2 ORAL (11:30)
--- NOTE | 2020-10-15 11:39 | NUR ---
ED Nurse Note: antony-sister
[2020-10-15 11:45] VITALS: BP 132/86
--- NOTE | 2020-10-15 11:45 | NUR ---
ER DISCHARGE NOTE: Patient is cleared to be discharged per ISELA and Dr. Nagy, pt is aox4, on room air, with stable vital signs. pt was given dc and prescription instructions, pt was able to verbalize understanding, pt id band and iv site removed without complications. pt is able to ambulate with steady gait. pt took all belongings. Pt left ED, picked up by his sister.
--- NOTE | 2020-10-15 13:30 | Consultation ---
DATE OF CONSULTATION: 10/15/2020 CONSULTING PHYSICIAN: Chuy Nagy MD. HISTORY OF PRESENT ILLNESS: This is a 55-year-old male who is well known to me from three years ago. The patient has a history of depression and possible psychotic disorder. The patient has been admitted to hospital, as his brother called the paramedics. The patient took an overdose of his medications. During evaluation, the patient was calm and cooperative, stated that he was suicidal. However, . He did not have any suicidal or homicidal ideation, requesting to be discharged. PAST PSYCHIATRIC HISTORY: Depression and anxiety and has a history of psychiatric hospitalization long time ago. He is not following with a psychiatrist currently. PAST MEDICAL HISTORY: Medically, he does not have any medical issues. ALLERGIES: No known drug allergies. SUBSTANCE ABUSE HISTORY: Denies any illicit drug use or alcohol. Urine toxicology is negative. SOCIAL HISTORY: The patient is single. . He is unemployed. He lives with his daughter in an apartment. MENTAL STATUS EXAMINATION: The patient is alert and oriented times to self, place, and situation. Mood is anxious. Affect is blunted, congruent with mood. Thought process is concrete. Thought content, there is no suicidal or homicidal ideation. Cognition is intact. Insight and judgment is fair. ASSESSMENT: Hamilton I Major depressive disorder. Hamilton II Deferred. Hamilton III None. Hamilton IV Moderate. Hamilton V 50. PLAN: 1. The patient will be given a prescription for Lexapro. 2. Referral to a psychiatrist. 3. Encourage him to participate in treatment with psychiatrist. 4. The patient is not an imminent danger to self or others. We will DC the 5150. Chuy Nagy M.D. DR: MYRON JOB#: [id number] CC:
== END 2020-10-15 11:45 | disposition home or self-care (01) ==
LOC: EDBD 17:09 → EMR 17:30
DX: T50.912A Poisoning by multiple unspecified drugs, medicaments and biological substances, intentional self-harm, initial encounter (principal); F20.9 Schizophrenia, unspecified; I11.9 Hypertensive heart disease without heart failure; J45.909 Unspecified asthma, uncomplicated; E11.9 Type 2 diabetes mellitus without complications; X83.8XXA Intentional self-harm by other specified means, initial encounter; Y92.9 Unspecified place or not applicable
CPT/HCPCS: 36415; 71045; 80053; 80307; 81003; 82550; 84484; 85025; 93005; 96372; 96374; G0480; G0481; J1200; J1630; Z7502; 99291

== ENCOUNTER 2020-10-26 20:23 | Emergency (ER) | payer MEDICAID ==
[~2020-10-26] VITALS: Ht 165.1 cm; Wt 95.3 kg
[~2020-10-26 20:23] MED LIST changes: +ACETAMINOPHEN-1 EAC1 ORAL; +AMLODIPINE BESYL5 MG ORAL; +CEPHALEXIN500 MG ORAL; +DOK100 M1 PO; +FLUOXETINE HCL10 M2 ORAL; +LOSARTAN-HCTZ1 EAC1 ORAL; +METFORMIN HCL850 M1 ORAL; +MIRTAZAPINE30 MG ORAL; +QUETIAPINE FUMA50 MG ORAL; +SENNA8.6 M2 PO; +TEMAZEPAM15 MG ORAL; +TRAZODONE HCL150 MG ORAL; +TRIHEXYPHENIDYL2 MG ORAL; +VISTARIL10 MG ORAL
--- NOTE | 2020-10-26 20:23 | NUR ---
ED Nurse Note: pt MALLORY RA 829 from home c/o abdominal pain. Per EMS report pt c/o abdominal pain 1 week without n/v/d, pt was combative when EMS arrived at the home and blood sugar could not be taken. Upon arrival pt is AAOx4, ambulatory steady, vital signs stable, cooperative with care and able to follow directions. Pt states he has abdominal pain for 1 month and also c/o back pain. Pt states history of schizophrenia and diabetes.
[2020-10-26 20:35] VITALS: BP 155/84
[2020-10-26] MEDS ORDERED: Lidocaine 2% Visc 15ml soln ONE (20:35)
[2020-10-26] MEDS ORDERED: Mylanta II UD 30ml ONE (20:35)
[2020-10-26] MEDS ORDERED: Dicyclomine HCl 10mg/5ml oral soln ONE (20:35)
--- NOTE | 2020-10-26 20:40 | NUR ---
ED Nurse Note: blood and urine sent to lab
[2020-10-26] MEDS ORDERED: Mylanta II UD 30ml ORAL ONE (20:45)
[2020-10-26] MEDS ORDERED: Dicyclomine HCl 10mg/5ml oral soln ORAL ONE (20:45)
[2020-10-26] MEDS ORDERED: Lidocaine 2% Visc 15ml soln ORAL ONE (20:45)
--- NOTE | 2020-10-26 20:47 | NUR ---
ED Nurse Note: pt went down to CT via gurney accompanied by CT staff. Pt in stable condition.
[2020-10-26 20:50] LABS: APPEARANCE,URINE CLEAR; BILIRUBIN, URINE NEGATIVE (NEGATIVE); COLOR,URINE PALE YELLOW; GLUCOSE, URINE (UA) 4+ (NEGATIVE); KETONES,URINE NEGATIVE (NEGATIVE); LEUKOCYTE ESTERASE ,URINE NEGATIVE (NEGATIVE); NITRITE,URINE NEGATIVE (NEGATIVE); PH,URINE 8 (4.5-8.0); PROTEIN,URINE NEGATIVE (NEGATIVE); UROBILINOGEN,URINE NORMAL MG/DL (0.0-1.0)
[2020-10-26 20:53] LABS: BASOPHILS % (AUTO) 0.6 % (0.0-2.0); EOSINOPHILS % (AUTO) 0.2 % (0.0-3.0); HEMATOCRIT 43.3 % (42.0-52.0); HEMOGLOBIN 14.5 G/DL (14.2-18.0); LYMPHOCYTES % (AUTO) 13.2 % (20.0-45.0); MEAN CORPUSCULAR VOLUME 90 FL (80-99); MONOCYTES % (AUTO) 7.6 % (1.0-10.0); NEUTROPHILS % (AUTO) 78.5 % (45.0-75.0); PLATELET COUNT 329 K/UL (150-450); RED CELL DISTRIBUTION WIDTH 13.3 % (11.6-14.8); WHITE BLOOD COUNT 14.1 K/UL (4.8-10.8)
[2020-10-26] MEDS ORDERED: Ketorolac 30mg Inj IV ONE (21:00)
[2020-10-26] MEDS ORDERED: Morphine Sulfate 2mg/ml Inj(IV/IM USE ONLY) IVP ONE (21:00)
--- NOTE | 2020-10-26 21:00 | NUR ---
ED Nurse Note: pt back from CT. Pt is crying stating has abdominal pain 10/. EDMD aware.
[2020-10-26 21:03] LABS: ANION GAP 6 mmol/L (5-15); BLOOD UREA NITROGEN 5 mg/dL (7-18); CALCIUM 8.5 MG/DL (8.5-10.1); CARBON DIOXIDE 30 MMOL/L (21-32); CHLORIDE 98 MMOL/L (98-107); POTASSIUM 3.7 MMOL/L (3.5-5.1); SODIUM 134 MMOL/L (136-145)
[2020-10-26] MEDS ORDERED: Morphine Sulfate 2mg/ml Inj(IV/IM USE ONLY) ONE (21:04)
[2020-10-26] MEDS ORDERED: Ketorolac 30mg Inj ONE (21:04)
[2020-10-26 21:07] LABS: ALANINE AMINOTRANSFERASE 44 U/L (12-78); ALBUMIN 3.7 G/DL (3.4-5.0); ALBUMIN/GLOBULIN RATIO 0.9 (1.0-2.7); ALKALINE PHOSPHATASE 76 U/L (46-116); ASPARTATE AMINO TRANSFERASE 25 U/L (15-37); BILIRUBIN,TOTAL 0.4 MG/DL (0.2-1.0)
--- NOTE | 2020-10-26 21:18 | Diagnostic Imaging Report ---
EXAM: CT Abdomen and Pelvis Without Intravenous Contrast CLINICAL HISTORY: PAIN TECHNIQUE: Axial computed tomography images of the abdomen and pelvis without intravenous contrast. CTDI is 19.1 mGy and DLP is 829.4 mGy-cm. One or more of the following dose reduction techniques were used: automated exposure control, adjustment of the mA and/or kV according to patient size, use of iterative reconstruction technique. COMPARISON: 01/01/2020. FINDINGS: Lung bases: Minimal posterior lower lobe atelectasis. Heart: Normal cardiac size. Mediastinum: Moderate to large hiatal hernia. The remainder of the stomach unremarkable. ABDOMEN: Liver: Mild diffuse fatty liver. Gallbladder and bile ducts: Unremarkable. No calcified stones. No ductal dilation. Pancreas: Unremarkable. No ductal dilation. Spleen: Unremarkable. No splenomegaly. Adrenals: Unremarkable. No mass. Kidneys and ureters: Unremarkable. No obstructing stones. No hydronephrosis. Stomach and bowel: Fluid within the right colon which may indicate sequela malabsorption versus nonspecific enteritis. No obstruction. PELVIS: Appendix: Normal appendix. Bladder: Slightly over distended urinary bladder. Normal size of prostate gland. No stones. Reproductive: See above. ABDOMEN and PELVIS: Intraperitoneal space: Unremarkable. No free air. No significant fluid collection. Bones/joints: Unremarkable lumbar spine. No acute fracture. No dislocation. Soft tissues: Small fat-containing left-sided inguinal hernia. Vasculature: Unremarkable. No abdominal aortic aneurysm. Lymph nodes: Unremarkable. No enlarged lymph nodes. IMPRESSION: 1. Moderate to large hiatal hernia. Fluid within the colon which may indicate sequela of nonspecific enteritis versus malabsorption. No acute appendicitis. No bowel obstruction. 2. Diffuse fatty liver. Remainder of abdominal viscera unremarkable.
--- NOTE | 2020-10-26 21:44 | Emergency Room Report ---
History of Present Illness General Chief Complaint: Abdominal Pain Source: Patient Present Illness HPI Disclaimer: Please note that this report is being documented using [employer] technology. This can lead to erroneous entry secondary to incorrect interpretation by the dictating instrument. HPI: 55-year-old male history of schizophrenia, diabetes presents with epigastric abdominal pain. States is been present for 1 week. Associated with occasional diarrhea. Denies any surgical history fever cough or shortness of breath. Presented by home from EMS. Allergies: Coded Allergies: No Known Allergies (Verified , 10/01/10) COVID-19 Screening Contact w/high risk pt: No Experienced COVID-19 symptoms?: No COVID-19 Testing performed GUIDE EXCURSION: No Patient History Reviewed Nursing Documentation: PMH: Agreed; PSxH: Agreed Nursing Documentation-PMH Hx Cardiac Problems: Yes Hx Hypertension: Yes Hx Asthma: Yes Hx Diabetes: Yes Hx Cancer: No Hx Gastrointestinal Problems: Yes History Of Psychiatric Problem: Yes - SCHIZOPHRENIA Hx Neurological Problems: No Review of Systems All Other Systems: negative except mentioned in HPI Physical Exam Vital Signs Date Time Temp Pulse Resp B/P (MAP) Pulse Ox O2 Delivery O2 Flow Rate FiO2 10/26/20 20:14 98.4 94 16 176/92 (120) 99 Room Air Sp02 EP Interpretation: reviewed, normal General Appearance: well appearing, no apparent distress Head: normocephalic, atraumatic Eyes: bilateral eye PERRL, bilateral eye EOMI ENT: hearing grossly normal, moist mucus membranes Neck: full range of motion, supple Respiratory: lungs clear, normal breath sounds, no rhonchi, no respiratory distress, no retraction, no wheezing Cardiovascular #1: normal peripheral pulses, regular rate, rhythm, no murmur Gastrointestinal: non tender, soft, non-distended, no guarding Neurologic: alert, oriented x3, no focal defects Skin: normal color, warm/dry Medical Decision Making Diagnostic Impression: Primary Impression: Abdominal pain ER Course MDM: Differential included but not limited to gastritis, GERD, colitis, diverticulitis to name a few Clinical course-IV inserted, medications given. GI cocktail given. Laboratory studies showed mild leukocytosis CT scan showed hiatal hernia. This was the location of patient's pain. I suspect his epigastric pain is secondary to a hiatal hernia with probable mild gastritis. Patient otherwise nontoxic no acute distress stable vital signs beside mildly elevated blood pressure. Will discharge home with antacids, antiemetics and follow-up with PMD. Labs - Laboratory Tests Test 10/26/20 20:40 White Blood Count 14.1 K/UL (4.8-10.8) H Red Blood Count 4.80 M/UL (4.70-6.10) Hemoglobin 14.5 G/DL (14.2-18.0) Hematocrit 43.3 % (42.0-52.0) Mean Corpuscular Volume 90 FL (80-99) Mean Corpuscular Hemoglobin 30.2 PG (27.0-31.0) Mean Corpuscular Hemoglobin Concent 33.5 G/DL (32.0-36.0) Red Cell Distribution Width 13.3 % (11.6-14.8) Platelet Count 329 K/UL (150-450) Mean Platelet Volume 6.2 FL (6.5-10.1) L Neutrophils (%) (Auto) 78.5 % (45.0-75.0) H Lymphocytes (%) (Auto) 13.2 % (20.0-45.0) L Monocytes (%) (Auto) 7.6 % (1.0-10.0) Eosinophils (%) (Auto) 0.2 % (0.0-3.0) Basophils (%) (Auto) 0.6 % (0.0-2.0) Urine Color Pale yellow Urine Appearance Clear Urine pH 8 (4.5-8.0) Urine Specific [place] 1.010 (1.005-1.035) Urine Protein Negative (NEGATIVE) Urine Glucose (UA) 4+ (NEGATIVE) H Urine Ketones Negative (NEGATIVE) Urine Blood Negative (NEGATIVE) Urine Nitrite Negative (NEGATIVE) Urine Bilirubin Negative (NEGATIVE) Urine Urobilinogen Normal MG/DL (0.0-1.0) Urine Leukocyte Esterase Negative (NEGATIVE) Sodium Level 134 MMOL/L (136-145) L Potassium Level 3.7 MMOL/L (3.5-5.1) Chloride Level 98 MMOL/L (98-107) Carbon Dioxide Level 30 MMOL/L (21-32) Anion Gap 6 mmol/L (5-15) Blood Urea Nitrogen 5 mg/dL (7-18) L Creatinine 1.0 MG/DL (0.55-1.30) Estimated Glomerular Filtration Rate > 60 mL/min (>60) Glucose Level 258 MG/DL (74-106) H Calcium Level 8.5 MG/DL (8.5-10.1) Total Bilirubin 0.4 MG/DL (0.2-1.0) Aspartate Amino Transferase (AST) 25 U/L (15-37) Alanine Aminotransferase (ALT) 44 U/L (12-78) Alkaline Phosphatase 76 U/L (46-116) Total Protein 7.9 G/DL (6.4-8.2) Albumin 3.7 G/DL (3.4-5.0) Globulin 4.2 g/dL Albumin/Globulin Ratio 0.9 (1.0-2.7) L Lipase 151 U/L (73-393) On reevaluation: Patient resting comfortably Plan-discharge home follow-up PMD Last Vital Signs Date Time Temp Pulse Resp B/P (MAP) Pulse Ox O2 Delivery O2 Flow Rate FiO2 10/26/20 20:14 98.4 94 16 176/92 (120) 99 Room Air Status: improved Disposition: HOME, SELF-CARE Condition: Improved Referrals: [facility],REFERRING (PCP) Elier Gonzalez M.D. Oct 26, 2020 21:44
[2020-10-26] MEDS ORDERED: FAMOTIDINE20 MG ORAL (21:45)
[2020-10-26] MEDS ORDERED: ZOFRAN4 M3 ORAL (21:45)
--- NOTE | 2020-10-26 22:09 | NUR ---
ED Nurse Note: Yumi (sister) called at [phone] to pickling machine operator pt. Left voicemail. can bander operator aware.
[2020-10-26 22:16] VITALS: BP 149/80
--- NOTE | 2020-10-26 23:30 | NUR ---
ED Nurse Note: Spoke with Yumi (sister), agreed with sister and pt to have pt wait in waiting room and sister will bead picker pt in the AM.
[2020-10-26 23:44] VITALS: BP 150/86
--- NOTE | 2020-10-26 23:44 | NUR ---
ER DISCHARGE NOTE: Patient is cleared to be discharged per ERMD, pt is aox4, on room air, with stable vital signs. pt was given dc and prescription instructions, pt was able to verbalize understanding, pt id band and iv site removed without complications. pt is able to ambulate with steady gait. pt took all belongings.
== END 2020-10-26 23:44 | disposition home or self-care (01) ==
LOC: EDBD 20:23 → EMR 20:46
DX: R10.13 Epigastric pain (principal); K44.9 Diaphragmatic hernia without obstruction or gangrene; E11.9 Type 2 diabetes mellitus without complications; J45.909 Unspecified asthma, uncomplicated; I11.9 Hypertensive heart disease without heart failure; Z79.84 Long term (current) use of oral hypoglycemic drugs
CPT/HCPCS: 36415; 74176; 80053; 81003; 83690; 85025; 96374; 96375; J1885; J2270; J2405; Z7502; 99284

== ENCOUNTER 2020-10-27 22:25 | Inpatient (IN) | payer MEDICAID ==
[~2020-10-27] VITALS: Ht 170.2 cm; Wt 93.9 kg
[~2020-10-27 22:25] MED LIST changes: +FAMOTIDINE20 MG ORAL
--- NOTE | 2020-10-27 22:35 | NUR ---
ED Nurse Note: Pt brought in by ambulance, pt was a [facility] today where they place a Ramirez catheter. He pulled out his catheter at home then called 911. Per EMS he was bleeding on his shorts but the bleeding was controlled. Vitals are stable on RA. He is alert and oriented x 4.
--- NOTE | 2020-10-27 22:47 | NUR ---
ED Nurse Note: Pt is resting eyes closed, breathing is even and unlabored. pt states he has some pain hin his back but not in or around his siva area.
--- NOTE | 2020-10-27 23:37 | Emergency Room Report ---
History of Present Illness General Chief Complaint: General Complaint Source: Patient Present Illness HPI Patient is a 55-year-old male brought in by EMS after increased bleeding from his penis. Reportedly patient had been seen at [facility] had Ramirez catheter placed. He reportedly pulled the catheter out subsequently. Patient had been recently at this hospital and had recent imaging which showed marked distended stomach and hiatal hernia. He had not been having any fever prior. Recent increased bleeding from his penis. Prior history of psychiatric disease. Allergies: Coded Allergies: No Known Allergies (Verified , 10/01/10) COVID-19 Screening Contact w/high risk pt: No Experienced COVID-19 symptoms?: No COVID-19 Testing performed HEAD PORTER BAGGAGE: No Patient History Past Medical History: see triage record Reviewed Nursing Documentation: PMH: Agreed; PSxH: Agreed Nursing Documentation-PMH Hx Cardiac Problems: Yes Hx Hypertension: Yes Hx Asthma: Yes Hx Diabetes: Yes Hx Cancer: No Hx Gastrointestinal Problems: Yes Hx Neurological Problems: No Review of Systems All Other Systems: negative except mentioned in HPI Physical Exam Vital Signs Date Time Temp Pulse Resp B/P (MAP) Pulse Ox O2 Delivery O2 Flow Rate FiO2 10/27/20 22:24 98.6 76 20 160/90 (113) Sp02 EP Interpretation: reviewed, normal General Appearance: normal inspection, well appearing, no apparent distress, alert, GCS 15, obese Head: atraumatic ENT: normal ENT inspection, hearing grossly normal, normal voice Neck: normal inspection, full range of motion, supple, no bony tend Respiratory: normal inspection, lungs clear, normal breath sounds, no respiratory distress, no retraction, no wheezing Cardiovascular #1: regular rate, rhythm, no edema Gastrointestinal: normal inspection, normal bowel sounds, non tender, soft, no guarding, no hernia Genitourinary: no CVA tenderness, other - Uncircumcised male, blood at urethral meatus. Musculoskeletal: normal inspection, back normal, normal range of motion Neurologic: alert, motor strength/tone normal, manager content III-XII nml as tested, responsive, speech normal, normal inspection Psychiatric: normal inspection, judgement/insight normal, mood/affect normal Medical Decision Making Diagnostic Impression: Primary Impression: Complication of Ramirez catheter Additional Impressions: Hematuria Schizophrenia ER Course Patient is a 54-year-old male presents for increased abdominal pain and patient presented with hematuria after pulling out his Ramirez catheter. Differential diagnosis include was not limited to urethral injury, urinary retention, psychosis among others. Because of complexity of patient's case laboratory tests and imaging studies were ordered. Patient had prior history of psychosis and was noted to be somewhat agitated intermittently. He was given medications for agitation. Patient initially refused Ramirez catheter placement. Laboratory testing showed elevated white blood count. Patient was empirically given IV Matt ephin. Dr. Karen Fu contacted for inpatient management due to panel physician. Labs Test 10/27/20 22:11 10/27/20 23:11 10/27/20 23:24 Serum Alcohol < 3 mg/dL White Blood Count 16.5 K/UL (4.8-10.8) Red Blood Count 4.72 M/UL (4.70-6.10) Hemoglobin 14.4 G/DL (14.2-18.0) Hematocrit 40.8 % (42.0-52.0) Mean Corpuscular Volume 87 FL (80-99) Mean Corpuscular Hemoglobin 30.5 PG (27.0-31.0) Mean Corpuscular Hemoglobin Concent 35.3 G/DL (32.0-36.0) Red Cell Distribution Width 14.0 % (11.6-14.8) Platelet Count 306 K/UL (150-450) Mean Platelet Volume 6.1 FL (6.5-10.1) Neutrophils (%) (Auto) 80.0 % (45.0-75.0) Lymphocytes (%) (Auto) 10.5 % (20.0-45.0) Monocytes (%) (Auto) 8.6 % (1.0-10.0) Eosinophils (%) (Auto) 0.2 % (0.0-3.0) Basophils (%) (Auto) 0.7 % (0.0-2.0) Prothrombin Time 11.3 SEC (9.30-11.50) Prothromb Time International Ratio 1.0 (0.9-1.1) Activated Partial Thromboplast Time 25 SEC (23-33) Sodium Level 135 MMOL/L (136-145) Potassium Level 3.6 MMOL/L (3.5-5.1) Chloride Level 97 MMOL/L (98-107) Carbon Dioxide Level 35 MMOL/L (21-32) Anion Gap 3 mmol/L (5-15) Blood Urea Nitrogen 10 mg/dL (7-18) Creatinine 0.9 MG/DL (0.55-1.30) Estimat Glomerular Filtration Rate > 60 mL/min (>60) Glucose Level 189 MG/DL (74-106) Calcium Level 9.1 MG/DL (8.5-10.1) Total Bilirubin 0.5 MG/DL (0.2-1.0) Aspartate Amino Transf (AST/SGOT) 26 U/L (15-37) Alanine Aminotransferase (ALT/SGPT) 39 U/L (12-78) Alkaline Phosphatase 86 U/L (46-116) Total Protein 7.8 G/DL (6.4-8.2) Albumin 3.8 G/DL (3.4-5.0) Globulin 4.0 g/dL Albumin/Globulin Ratio 0.9 (1.0-2.7) Lipase 147 U/L (73-393) Ammonia < 10 umol/L (11-32) Last Vital Signs Date Time Temp Pulse Resp B/P (MAP) Pulse Ox O2 Delivery O2 Flow Rate FiO2 10/27/20 22:24 98.6 76 20 160/90 (113) Status: improved Disposition: ADMITTED INPATIENT Condition: Stable Referrals: [facility],REFERRING (PCP) Wilfred Sprague MD Oct 27, 2020 23:37
[2020-10-27 23:39] LABS: BASOPHILS % (AUTO) 0.7 % (0.0-2.0); EOSINOPHILS % (AUTO) 0.2 % (0.0-3.0); HEMATOCRIT 40.8 % (42.0-52.0); HEMOGLOBIN 14.4 G/DL (14.2-18.0); LYMPHOCYTES % (AUTO) 10.5 % (20.0-45.0); MEAN CORPUSCULAR VOLUME 87 FL (80-99); MONOCYTES % (AUTO) 8.6 % (1.0-10.0); PLATELET COUNT 306 K/UL (150-450); RED BLOOD COUNT 4.72 M/UL (4.70-6.10); WHITE BLOOD COUNT 16.5 K/UL (4.8-10.8)
--- NOTE | 2020-10-27 23:45 | NUR ---
ED Nurse Note: Pt is very aggitated. he is yelling at staff and hitting the garcía. He is exibiting labile mood with staff. He is hitting the garcía with his extremities.
[2020-10-27 23:54] LABS: ANION GAP 3 mmol/L (5-15); BLOOD UREA NITROGEN 10 mg/dL (7-18); CALCIUM 9.1 MG/DL (8.5-10.1); CARBON DIOXIDE 35 MMOL/L (21-32); CHLORIDE 97 MMOL/L (98-107); CREATININE 0.9 MG/DL (0.55-1.30); POTASSIUM 3.6 MMOL/L (3.5-5.1); SODIUM 135 MMOL/L (136-145)
[2020-10-27 23:59] LABS: ALANINE AMINOTRANSFERASE 39 U/L (12-78); ALBUMIN 3.8 G/DL (3.4-5.0); ALBUMIN/GLOBULIN RATIO 0.9 (1.0-2.7); ALKALINE PHOSPHATASE 86 U/L (46-116); ASPARTATE AMINO TRANSFERASE 26 U/L (15-37); BILIRUBIN,TOTAL 0.5 MG/DL (0.2-1.0)
[2020-10-28] MEDS ORDERED: LORazepam Inj 2mg/ml 1ml ONE (00:06)
[2020-10-28] MEDS ORDERED: Haloperidol 5mg/ml Inj ONE (00:07)
[2020-10-28] MEDS ORDERED: DiphenhydrAMINE 50mg/ml Inj ONE (00:07)
[2020-10-28] MEDS ORDERED: Haloperidol 5mg/ml Inj IM ONE (00:15)
[2020-10-28] MEDS ORDERED: DiphenhydrAMINE 50mg/ml Inj IM ONE (00:15)
[2020-10-28] MEDS ORDERED: LORazepam Inj 2mg/ml 1ml IM ONE (00:15)
--- NOTE | 2020-10-28 00:16 | NUR ---
ED Nurse Note: Pt is allowing RN to administer medication. Pt is very suspicious and is violent towards self. Addendum: 10/28/20 at 2 by MICHELLE Pt broke soft wrist restraints when applied to prevent pulling on lines.
[2020-10-28 00:19] VITALS: BP 159/89
--- NOTE | 2020-10-28 01:11 | NUR ---
ED Nurse Note: Pt is periodically yelling, screaming, He will hit himself when RN asseses him. ER ok to not place parmar at this time.
[2020-10-28] MEDS ORDERED: cefTRIAXone 1 GM in NS 55 ML IVPB ONE (02:00)
--- NOTE | 2020-10-28 02:17 | NUR ---
ED Nurse Note: Gave Report to Xyrec
--- NOTE | 2020-10-28 02:43 | NUR ---
TRANSFER TO FLOOR: Patient transferred to as ordered, per ER MD. Report given to JEROME Henson. Belongings sent with pt. Vitals are stable as documented.
--- NOTE | 2020-10-28 02:45 | NUR ---
pt is refusing parmar at this time. ER aware.
--- NOTE | 2020-10-28 02:59 | NUR ---
NURSE NOTES: Patient admitted from ED at 0230 for hematuria. Patient asleep and appears calm at this time; reported by ED RN that patient intermittently yells and impulsively hits self when agitated. Skin is intact besides the urethral trauma. Blood stains all around perineal area, thighs and legs. Refusing to clean up dried blood at this time, will re-attempt later. Patient is made comfortable in bed. Bed alarm on; communicated with staff re: fall risk status; patient's room near the station. Call placed to Sister Yumi and asked re: history and home medication of patient because patient is slightly sedated and unable to answer questions at this time. Yumi unable to give home medication list, stated patient's brother has the list and is currently not home. Will re-attempt in the morning. Call placed to Dr. Fu and received admission orders. Dr. Fu stated he will come and see patient around 10AM today. Will continue to monitor patient.
--- NOTE | 2020-10-28 03:07 | NUR ---
NURSE NOTES: Sister (Yumi) unable to provide home medication list to RN at this time. Stated patient's brother has list and is not currently home at this time. Addendum: 10/28/20 at 0308 by WAYNE FARFAN RN RN Amended: Links added.
[2020-10-28 04:00] VITALS: BP 148/82
[2020-10-28 06:48] LABS: BASOPHILS % (AUTO) 0.6 % (0.0-2.0); EOSINOPHILS % (AUTO) 0.4 % (0.0-3.0); HEMOGLOBIN 12.5 G/DL (14.2-18.0); LYMPHOCYTES % (AUTO) 16.2 % (20.0-45.0); MEAN CORPUSCULAR VOLUME 91 FL (80-99); MONOCYTES % (AUTO) 9.9 % (1.0-10.0); NEUTROPHILS % (AUTO) 72.9 % (45.0-75.0); PLATELET COUNT 274 K/UL (150-450); RED BLOOD COUNT 4.06 M/UL (4.70-6.10); RED CELL DISTRIBUTION WIDTH 13.5 % (11.6-14.8); WHITE BLOOD COUNT 12.6 K/UL (4.8-10.8)
--- NOTE | 2020-10-28 07:05 | NUR ---
NURSE NOTES: HAndoff received from yared RN. Patient is asleep, no signs of acute distress noted, breathing is even and unlabored on room air. Right forearm IV is intact and saline locked. Bed is low and locked, side rails up x2, call light is within reach.
--- NOTE | 2020-10-28 07:05 | NUR ---
NURSE HAND-OFF: Important Events on Shift:[new admit, calm and cooperative with periods of waking up confused and hitting self] Patient Status: [sleeping] Diet: [Regular] Pending Orders: [] Pending Results/Labs:[] Pending MD notification:[] Latest Vital Signs: Temperature 98.4 , Pulse 79 , B/P 148 /82 , Respiratory Rate 18 , O2 SAT 96 , Room Air, O2 Flow Rate . Vital Sign Comment: [] Latest Cardona Fall Score: 50 Fall Risk: High Risk Safety Measures: Call light Within Reach, Bed Alarm Zone 2, Side Rails Side Rails x2, Bed position Low and Locked. Fall Precautions: Yellow Socks Yellow Gown Door Sign Patient Fall Education Report given to [CLARISA Mccollum RN].
[2020-10-28 07:21] LABS: ANION GAP 2 mmol/L (5-15); BLOOD UREA NITROGEN 10 mg/dL (7-18); CALCIUM 8.4 MG/DL (8.5-10.1); CARBON DIOXIDE 32 MMOL/L (21-32); CHLORIDE 102 MMOL/L (98-107); CREATININE 0.8 MG/DL (0.55-1.30); PHOSPHORUS 3.1 MG/DL (2.5-4.9); POTASSIUM 3.7 MMOL/L (3.5-5.1); SODIUM 136 MMOL/L (136-145)
[2020-10-28 08:00] VITALS: BP 123/69
--- NOTE | 2020-10-28 08:43 | History & Physical ---
History of Present Illness General Reason for Hospitalization: General Complaint Present Illness HPI Patient is a 55-year-old male brought in by EMS after increased bleeding from his penis. Reportedly patient had been seen at [facility] had Ramirez catheter placed. He reportedly pulled the catheter out subsequently. Patient had been recently at this hospital and had recent imaging which showed marked distended stomach and hiatal hernia. He had not been having any fever prior. Recent increased bleeding from his penis. Prior history of psychiatric disease. Allergies: Coded Allergies: No Known Allergies (Verified , 10/01/10) COVID-19 Screening Contact w/high risk pt: No Experienced COVID-19 symptoms?: No Medication History Scheduled Amlodipine Besylate* (Amlodipine Besylate*), 0 ORAL DAILY, (Reported) Amlodipine Besylate* (Amlodipine Besylate*), 5 MG ORAL DAILY, (Reported) Cephalexin* (Keflex*), 500 MG ORAL EVERY 6 HOURS, (Reported) Famotidine* (Pepcid 20mg tablet*), 20 MG ORAL TWICE A DAY Fluoxetine Hcl* (Fluoxetine Hcl*), 10 MG ORAL DAILY Hydroxyzine HCl (Hydroxyzine HCl), 10 MG ORAL BID, (Reported) Losartan/Hydrochlorothiazide (Losartan-Hctz 100-25 Mg Tab), 1 TAB ORAL DAILY, (Reported) Metformin Hcl* (Metformin Hcl*), 1,000 MG ORAL DAILY, (Reported) Metoprolol Succinate* (Metoprolol Succinate*), 0 ORAL DAILY, (Reported) Mirtazapine* (Remeron*), 30 MG ORAL BEDTIME, (Reported) Quetiapine Fumarate* (Seroquel*), 0 ORAL DAILY, (Reported) Quetiapine Fumarate* (Quetiapine Fumarate*), 25 MG ORAL DAILY, (Reported) Quetiapine Fumarate* (Quetiapine Fumarate*), 50 MG ORAL DAILY, (Reported) Temazepam (Temazepam*), 15 MG ORAL BEDTIME, (Reported) Trazodone* (Trazodone*), 150 MG ORAL BEDTIME, (Reported) Trihexyphenidyl Hcl* (Artane*), 2 MG ORAL TWICE A DAY, (Reported) Scheduled PRN Acetaminophen With Codeine (T#3) (Tylenol #3 Tab*), 1 TAB ORAL Q4H PRN for For Pain, (Reported) Ondansetron* (Zofran*), 4 MG ORAL Q8HR PRN for Nausea & Vomiting Miscellaneous Medications Amitriptyline Hcl (Amitriptyline Hcl), 0 ORAL, (Reported) Docusate Sodium (Dok), 100 MG PO, (Reported) Gemfibrozil* (Lopid*), 0 ORAL, (Reported) Glipizide* (Glucotrol Xl*), 0 ORAL, (Reported) Hydroxyzine HCl (Hydroxyzine HCl), 0 ORAL, (Reported) Nitroglycerin (Nitrostat), 0 SL, (Reported) Ranitidine Hcl* (Ranitidine Hcl*), 0 PO, (Reported) Sennosides (Senna), 8.6 MG PO, (Reported) Simvastatin (Zocor), 0 ORAL, (Reported) Trihexyphenidyl HCl (Trihexyphenidyl HCl), 2 ORAL, (Reported) Patient History Healthcare decision maker Resuscitation status Advanced Directive on File Review of Systems Review of Symptoms General ROS: no weight loss or fever Psychological ROS: no depression or mood changes, no memory loss Ophthalmic ROS: no visual changes or eye irritation ENT ROS: no nasal congestion, hearing loss, dizziness Allergy and Immunology ROS: no allergic symptoms or urticaria Hematological and Lymphatic ROS: no swollen glands, unusual bleeding or bruising Endocrine ROS: no polyuria, polydipsia, weight changes, temperature intolerance Respiratory ROS: no cough, shortness of breath, or wheezing Cardiovascular ROS: no chest pain or dyspnea on exertion Gastrointestinal ROS: denies abdominal pain, bright red blood in stool. Musculoskeletal ROS: no myalgias or arthralgias Neurological ROS: no TIA or stroke symptoms Dermatological ROS: no new or changing skin lesions, rashes or pruritis Physical Exam Physical Exam General appearance: alert, cooperative, no distress, appears stated age Head: Normocephalic, without obvious abnormality, atraumatic Eyes: conjunctivae/corneas clear. PERRL, EOM's intact. Fundi benign Throat: Lips, mucosa, and tongue normal. Teeth and gums normal Neck: supple, symmetrical, trachea midline, no adenopathy, thyroid: not enlarged, symmetric, no tenderness/mass/nodules, no carotid bruit and no JVD Lungs: clear to auscultation bilaterally Heart: regular rate and rhythm, S1, S2 normal, no murmur, click, rub or gallop Abdomen: soft, non-tender. Bowel sounds normal. No masses, no organomegaly Extremities: extremities normal, atraumatic, no cyanosis or edema Pulses: 2+ and symmetric Skin: Skin color, texture, turgor normal. No rashes or lesions Neurologic: Grossly normal Last 24 Hour Vital Signs Date Time Temp Pulse Resp B/P (MAP) Pulse Ox O2 Delivery O2 Flow Rate FiO2 10/28/20 04:00 98.4 79 18 148/82 (104) 96 10/28/20 02:39 Room Air 10/28/20 02:30 98.6 88 15 145/92 98 Room Air 10/28/20 00:42 70 16 145/82 98 10/28/20 00:19 98.7 89 18 159/89 97 Room Air 10/28/20 00:19 77 18 10/28/20 00:12 76 20 160/90 10/27/20 22:24 98.6 76 20 160/90 (113) Intake and Output 10/27/20 10/28/20 19:00 07:00 Intake Total 0 ml Balance 0 ml Intake Oral 0 ml # Voids 1 Laboratory Tests Test 10/27/20 22:11 10/27/20 23:11 10/27/20 23:24 10/28/20 05:36 Serum Alcohol < 3 mg/dL White Blood Count 16.5 K/UL (4.8-10.8) H 12.6 K/UL (4.8-10.8) H Red Blood Count 4.72 M/UL (4.70-6.10) 4.06 M/UL (4.70-6.10) L Hemoglobin 14.4 G/DL (14.2-18.0) 12.5 G/DL (14.2-18.0) L Hematocrit 40.8 % (42.0-52.0) L 37.0 % (42.0-52.0) L Mean Corpuscular Volume 87 FL (80-99) 91 FL (80-99) Mean Corpuscular Hemoglobin 30.5 PG (27.0-31.0) 30.8 PG (27.0-31.0) Mean Corpuscular Hemoglobin Concent 35.3 G/DL (32.0-36.0) 33.8 G/DL (32.0-36.0) Red Cell Distribution Width 14.0 % (11.6-14.8) 13.5 % (11.6-14.8) Platelet Count 306 K/UL (150-450) 274 K/UL (150-450) Mean Platelet Volume 6.1 FL (6.5-10.1) L 5.8 FL (6.5-10.1) L Neutrophils (%) (Auto) 80.0 % (45.0-75.0) H 72.9 % (45.0-75.0) Lymphocytes (%) (Auto) 10.5 % (20.0-45.0) L 16.2 % (20.0-45.0) L Monocytes (%) (Auto) 8.6 % (1.0-10.0) 9.9 % (1.0-10.0) Eosinophils (%) (Auto) 0.2 % (0.0-3.0) 0.4 % (0.0-3.0) Basophils (%) (Auto) 0.7 % (0.0-2.0) 0.6 % (0.0-2.0) Prothrombin Time 11.3 SEC (9.30-11.50) Prothromb Time International Ratio 1.0 (0.9-1.1) Activated Partial Thromboplast Time 25 SEC (23-33) Sodium Level 135 MMOL/L (136-145) L 136 MMOL/L (136-145) Potassium Level 3.6 MMOL/L (3.5-5.1) 3.7 MMOL/L (3.5-5.1) Chloride Level 97 MMOL/L (98-107) L 102 MMOL/L (98-107) Carbon Dioxide Level 35 MMOL/L (21-32) H 32 MMOL/L (21-32) Anion Gap 3 mmol/L (5-15) L 2 mmol/L (5-15) L Blood Urea Nitrogen 10 mg/dL (7-18) 10 mg/dL (7-18) Creatinine 0.9 MG/DL (0.55-1.30) 0.8 MG/DL (0.55-1.30) Estimat Glomerular Filtration Rate > 60 mL/min (>60) > 60 mL/min (>60) Glucose Level 189 MG/DL (74-106) H 135 MG/DL (74-106) H Calcium Level 9.1 MG/DL (8.5-10.1) 8.4 MG/DL (8.5-10.1) L Total Bilirubin 0.5 MG/DL (0.2-1.0) Aspartate Amino Transf (AST/SGOT) 26 U/L (15-37) Alanine Aminotransferase (ALT/SGPT) 39 U/L (12-78) Alkaline Phosphatase 86 U/L (46-116) Total Protein 7.8 G/DL (6.4-8.2) Albumin 3.8 G/DL (3.4-5.0) Globulin 4.0 g/dL Albumin/Globulin Ratio 0.9 (1.0-2.7) L Lipase 147 U/L (73-393) Ammonia < 10 umol/L (11-32) L Phosphorus Level 3.1 MG/DL (2.5-4.9) Magnesium Level 2.3 MG/DL (1.8-2.4) Height (Feet): 5 Height (Inches): 7.00 Weight (Pounds): 207 Medications Current Medications Medications (Trade) Dose Ordered Sig/Alethea Route PRN Reason Start Time Stop Time Status Last Admin Dose Admin Acetaminophen (Tylenol) 650 mg Q6H PRN ORAL Mild Pain (Pain Scale 1-3) 10/28/20 03:00 11/27/20 02:59 Acetaminophen (Tylenol) 650 mg Q6H PRN ORAL Temp >100.5 10/28/20 03:00 11/27/20 02:59 Ceftriaxone Sodium 1 gm/ Dextrose 55 ml @ 110 mls/hr Q24H IVPB 10/28/20 21:00 11/04/20 20:59 Lorazepam (Ativan 2mg/ml 1ml) 1 mg Q3H PRN IV For Anxiety 10/28/20 03:00 11/04/20 02:59 Assessment/Plan Diagnosis Christiana I: #hematuria #UTI? #BPH #Depression - admit inpatient - monitor cbc - urology eval - ceftriaxone 1g daily - flomax 0.4mg daily - resume home meds - pain control [facility] Hospital declaration I spent 70 minutes on this patient's case, and 35 minutes was dedicated to counseling and/or care coordination. MIPS (Merit-based Incentive Payment System) Applicable CPT: 02318, 96980 CHECK ALL THAT ARE MET: Measure #5 (CHF): All ages. Prescribe GINO/ARB upon discharge for patients with left ventricular systolic dysfunction. If not, the reason is clearly documented in the medical chart. Measure #8 (CHF): All ages. Prescribe a beta marnie upon discharge for patients with left ventricular systolic dysfunction. If not, the reason is clearly documented in the medical chart. Measure #47 Advance care plan or surrogate decision maker documented in the medical record. Measure #130 The provider has documented, updated, or reviewed the patients current medication list and has documented it in the patients note. Measure #374 (All): Send report to referring provider. Measure #407(Sepsis due to MSSA bacteremia): Age 18+ Patient treated with a beta-lactam antibiotic (Nafcillin, Oxacillin or Cefazolin) as definitive therapy. MEDICAL COMPLEXITY High complexity medical decision making (need 2/3 categories) Problem - need 4 points Acute/new problem with new plan for workup (4 points, 1 max) Acute/new problem without additional workup (3 points, 1 max) Unstable chronic problem actively being managed (2 point each, 2 max) Stable chronic problem actively being managed (1 point each, 2 max) Self-limited/transient process (constipation, muscle ache, etc) (1 point each, 2 max) Data - need 4 points Reviewed labs/imaging studies (1 points, 2 max) Independent review of imaging (EKG, xrays, etc) (2 points, 2 max) Discussed case with consult/other MD/RN (2 points, 2 max) High Risk - qualify if have one of the following: Severe exacerbation of acute problem, acute mental status change, IV narcotics, monitoring drug levels (vancomycin, INR, tacrolimus etc) Karen Fu M.D. Oct 28, 2020 08:43
[2020-10-28] MEDS ORDERED: cefTRIAXone 1 GM in D5W 55 ML IVPB SCH (09:00)
[2020-10-28] MEDS: Tamsulosin 0.4mg cap ORAL SCH (10:06)
--- NOTE | 2020-10-28 10:10 | NUR ---
NURSE NOTES: Bladder scan reading of 137 done. MD Burton notified. Awaiting any new orders.
--- NOTE | 2020-10-28 11:22 | NUR ---
"INSURANCE CLINICALS FAXED TO [employer] | FX [phone] [facility] | FX [phone]"
[2020-10-28 12:00] VITALS: BP 127/71
[2020-10-28] MEDS ORDERED: FLUoxetine 10mg cap ORAL SCH (12:45)
--- NOTE | 2020-10-28 12:45 | NUR ---
NURSE NOTES: Left a message for Dr. Fu regarding dosage of prozac, awaiting response.
[2020-10-28 12:50] LABS: EOSINOPHILS % (AUTO) 0.7 % (0.0-3.0); HEMATOCRIT 40.7 % (42.0-52.0); HEMOGLOBIN 13.3 G/DL (14.2-18.0); MEAN CORPUSCULAR VOLUME 92 FL (80-99); MONOCYTES % (AUTO) 9.4 % (1.0-10.0); NEUTROPHILS % (AUTO) 66.9 % (45.0-75.0); PLATELET COUNT 288 K/UL (150-450); RED BLOOD COUNT 4.43 M/UL (4.70-6.10); RED CELL DISTRIBUTION WIDTH 13.6 % (11.6-14.8); WHITE BLOOD COUNT 12.4 K/UL (4.8-10.8)
--- NOTE | 2020-10-28 15:43 | NUR ---
NURSE NOTES: Returned Dr. Burton's call regarding the patient's urine and post void residual (0ml). No new orders at this time.
--- NOTE | 2020-10-28 15:44 | NUR ---
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 Pulled out Ramirez Catheter that was inserted at [facility] SI: Gross Hematuria, leukocytosis T 98.6, HR 76, RR 20, BP 160/90, O2 Sat 98% WBC 16.5, NA+ 135, Glucose 189 IS: Abdomen/Pelvis CT NACL IV Bolus 500ml Haldol Injection IM once Lorazepam IM once Diphenhydramine IM once Ramirez Cath Insertion Admit to Med/Surg Med/Surg Status Plan: Urology Consultation DCP: Pending hospitalization
[2020-10-28 16:00] VITALS: BP 125/81
[2020-10-28] MEDS: FLUoxetine 10mg cap ORAL SCH (16:16)
--- NOTE | 2020-10-28 16:20 | NUR ---
DESULFURIZER MACHINE NOTE SW met w/ pt and discussed psych/suicide ideation. Pt presents as A&O4x. Pt reports he fulled the catheter because he thought he would not need it anymore and it started to bleed. SW encouraged pt to discuss the need of parmar catheter w/ . Pt resides w/ his brother at [address] [place] [address] [address]. Pt was unable to recall the full psychiatric hx. Pt is currently linked to [facility], has a social media manager and psychiatrist. Pt reports he is getting a monthly risperidone injection, prozac and haldol PRN at night. Pt has next appt w/ [facility] on 11/02/2020. Pt reports he has SI, the scale 4/10 but does not have any suicidal plan. Pt has hx of psychiatric admission. However, pt was unable to recall the detail of psychiatric admission/hx. SW encouraged pt to speak to the staff when his suicidal urge increases. Pt verbalized understanding. Pt is not currently danger to self as he does not have active suicidal ideation/plan. SW will continue to monitor. Emergency contact: Yumi Osman (sister) [phone]. Pt reports his mother, Melissa .
--- NOTE | 2020-10-28 17:15 | NUR ---
NURSE NOTES: Patient reported chest pain, SOB and generalized numbness. Dr. Fu was notified and orders were received and carried out.
--- NOTE | 2020-10-28 18:35 | Consultation ---
History of Present Illness General Date patient seen: Oct 28, 2020 Reason for Hospitalization: General Complaint Present Illness HPI This is a 55-year-old male brought in by EMS after increased bleeding from his penis. Reportedly patient had been seen at [facility] had Parmar catheter placed. He reportedly pulled the catheter out subsequently. Patient had been recently at this hospital and had recent imaging which showed marked distended stomach and hiatal hernia. He had not been having any fever prior. Recent increased bleeding from his penis. Prior history of psychiatric disease. surgery called to evaluate for penile injury and abd distention. patient states lower pelvis uncomfortable lower abdomen. no n/v/f/c. wants food. pain with urination. still notes blood Allergies: Coded Allergies: No Known Allergies (Verified , 10/01/10) COVID-19 Screening Contact w/high risk pt: No Experienced COVID-19 symptoms?: No Medication History Scheduled Amlodipine Besylate* (Amlodipine Besylate*), 0 ORAL DAILY, (Reported) Amlodipine Besylate* (Amlodipine Besylate*), 5 MG ORAL DAILY, (Reported) Cephalexin* (Keflex*), 500 MG ORAL EVERY 6 HOURS, (Reported) Famotidine* (Pepcid 20mg tablet*), 20 MG ORAL TWICE A DAY Fluoxetine Hcl* (Fluoxetine Hcl*), 10 MG ORAL DAILY Hydroxyzine HCl (Hydroxyzine HCl), 10 MG ORAL BID, (Reported) Losartan/Hydrochlorothiazide (Losartan-Hctz 100-25 Mg Tab), 1 TAB ORAL DAILY, (Reported) Metformin Hcl* (Metformin Hcl*), 1,000 MG ORAL DAILY, (Reported) Metoprolol Succinate* (Metoprolol Succinate*), 0 ORAL DAILY, (Reported) Mirtazapine* (Remeron*), 30 MG ORAL BEDTIME, (Reported) Quetiapine Fumarate* (Seroquel*), 0 ORAL DAILY, (Reported) Quetiapine Fumarate* (Quetiapine Fumarate*), 25 MG ORAL DAILY, (Reported) Quetiapine Fumarate* (Quetiapine Fumarate*), 50 MG ORAL DAILY, (Reported) Temazepam (Temazepam*), 15 MG ORAL BEDTIME, (Reported) Trazodone* (Trazodone*), 150 MG ORAL BEDTIME, (Reported) Trihexyphenidyl Hcl* (Artane*), 2 MG ORAL TWICE A DAY, (Reported) Scheduled PRN Acetaminophen With Codeine (T#3) (Tylenol #3 Tab*), 1 TAB ORAL Q4H PRN for For Pain, (Reported) Ondansetron* (Zofran*), 4 MG ORAL Q8HR PRN for Nausea & Vomiting Miscellaneous Medications Amitriptyline Hcl (Amitriptyline Hcl), 0 ORAL, (Reported) Docusate Sodium (Dok), 100 MG PO, (Reported) Gemfibrozil* (Lopid*), 0 ORAL, (Reported) Glipizide* (Glucotrol Xl*), 0 ORAL, (Reported) Hydroxyzine HCl (Hydroxyzine HCl), 0 ORAL, (Reported) Nitroglycerin (Nitrostat), 0 SL, (Reported) Ranitidine Hcl* (Ranitidine Hcl*), 0 PO, (Reported) Sennosides (Senna), 8.6 MG PO, (Reported) Simvastatin (Zocor), 0 ORAL, (Reported) Trihexyphenidyl HCl (Trihexyphenidyl HCl), 2 ORAL, (Reported) Patient History History Provided By: Patient, Medical Record, PMD Healthcare decision maker Resuscitation status Advanced Directive on File Past Medical/Surgical History Past Medical/Surgical History: (1) Dizziness (2) Suicide gesture (3) Drug overdose (4) Abdominal pain (5) Schizophrenia (6) Complication of Parmar catheter (7) Hematuria Review of Systems Review of Symptoms General ROS: no weight loss or fever Psychological ROS: no depression or mood changes, no memory loss Ophthalmic ROS: no visual changes or eye irritation ENT ROS: no nasal congestion, hearing loss, dizziness Allergy and Immunology ROS: no allergic symptoms or urticaria Hematological and Lymphatic ROS: no swollen glands, unusual bleeding or bruising Endocrine ROS: no polyuria, polydipsia, weight changes, temperature intolerance Respiratory ROS: no cough, shortness of breath, or wheezing Cardiovascular ROS: no chest pain or dyspnea on exertion Gastrointestinal ROS: ++ abdominal pain, bright red blood in stool. Musculoskeletal ROS: no myalgias or arthralgias Neurological ROS: no TIA or stroke symptoms Dermatological ROS: no new or changing skin lesions, rashes or pruritis Physical Exam Physical Exam General appearance: alert, cooperative, no distress, appears stated age Head: Normocephalic, without obvious abnormality, atraumatic Eyes: conjunctivae/corneas clear. PERRL, EOM's intact. Fundi benign Throat: Lips, mucosa, and tongue normal. Teeth and gums normal Neck: supple, symmetrical, trachea midline, no adenopathy, thyroid: not enlarged, symmetric, no tenderness/mass/nodules, no carotid bruit and no JVD Lungs: clear to auscultation bilaterally Heart: regular rate and rhythm, S1, S2 normal, no murmur, click, rub or gallop Abdomen: soft, non-tender. Bowel sounds normal. No masses, no organomegaly Extremities: extremities normal, atraumatic, no cyanosis or edema Pulses: 2+ and symmetric Skin: Skin color, texture, turgor normal. No rashes or lesions Neurologic: Grossly normal Last 24 Hour Vital Signs Date Time Temp Pulse Resp B/P (MAP) Pulse Ox O2 Delivery O2 Flow Rate FiO2 10/28/20 16:00 98.0 81 19 125/81 (96) 97 10/28/20 12:00 97.6 76 18 127/71 (89) 96 10/28/20 09:00 Room Air 10/28/20 08:00 98.7 71 18 123/69 (87) 97 10/28/20 04:00 98.4 79 18 148/82 (104) 96 10/28/20 02:39 Room Air 10/28/20 02:30 98.6 88 15 145/92 98 Room Air 10/28/20 00:42 70 16 145/82 98 10/28/20 00:19 98.7 89 18 159/89 97 Room Air 10/28/20 00:19 77 18 10/28/20 00:12 76 20 160/90 10/27/20 22:24 98.6 76 20 160/90 (113) Intake and Output 10/27/20 10/28/20 19:00 07:00 Intake Total 0 ml Balance 0 ml Intake Oral 0 ml # Voids 1 Laboratory Tests Test 10/27/20 22:11 10/27/20 23:11 10/27/20 23:24 10/28/20 05:36 Serum Alcohol < 3 mg/dL White Blood Count 16.5 K/UL (4.8-10.8) H 12.6 K/UL (4.8-10.8) H Red Blood Count 4.72 M/UL (4.70-6.10) 4.06 M/UL (4.70-6.10) L Hemoglobin 14.4 G/DL (14.2-18.0) 12.5 G/DL (14.2-18.0) L Hematocrit 40.8 % (42.0-52.0) L 37.0 % (42.0-52.0) L Mean Corpuscular Volume 87 FL (80-99) 91 FL (80-99) Mean Corpuscular Hemoglobin 30.5 PG (27.0-31.0) 30.8 PG (27.0-31.0) Mean Corpuscular Hemoglobin Concent 35.3 G/DL (32.0-36.0) 33.8 G/DL (32.0-36.0) Red Cell Distribution Width 14.0 % (11.6-14.8) 13.5 % (11.6-14.8) Platelet Count 306 K/UL (150-450) 274 K/UL (150-450) Mean Platelet Volume 6.1 FL (6.5-10.1) L 5.8 FL (6.5-10.1) L Neutrophils (%) (Auto) 80.0 % (45.0-75.0) H 72.9 % (45.0-75.0) Lymphocytes (%) (Auto) 10.5 % (20.0-45.0) L 16.2 % (20.0-45.0) L Monocytes (%) (Auto) 8.6 % (1.0-10.0) 9.9 % (1.0-10.0) Eosinophils (%) (Auto) 0.2 % (0.0-3.0) 0.4 % (0.0-3.0) Basophils (%) (Auto) 0.7 % (0.0-2.0) 0.6 % (0.0-2.0) Prothrombin Time 11.3 SEC (9.30-11.50) Prothromb Time International Ratio 1.0 (0.9-1.1) Activated Partial Thromboplast Time 25 SEC (23-33) Sodium Level 135 MMOL/L (136-145) L 136 MMOL/L (136-145) Potassium Level 3.6 MMOL/L (3.5-5.1) 3.7 MMOL/L (3.5-5.1) Chloride Level 97 MMOL/L (98-107) L 102 MMOL/L (98-107) Carbon Dioxide Level 35 MMOL/L (21-32) H 32 MMOL/L (21-32) Anion Gap 3 mmol/L (5-15) L 2 mmol/L (5-15) L Blood Urea Nitrogen 10 mg/dL (7-18) 10 mg/dL (7-18) Creatinine 0.9 MG/DL (0.55-1.30) 0.8 MG/DL (0.55-1.30) Estimat Glomerular Filtration Rate > 60 mL/min (>60) > 60 mL/min (>60) Glucose Level 189 MG/DL (74-106) H 135 MG/DL (74-106) H Calcium Level 9.1 MG/DL (8.5-10.1) 8.4 MG/DL (8.5-10.1) L Total Bilirubin 0.5 MG/DL (0.2-1.0) Aspartate Amino Transf (AST/SGOT) 26 U/L (15-37) Alanine Aminotransferase (ALT/SGPT) 39 U/L (12-78) Alkaline Phosphatase 86 U/L (46-116) Total Protein 7.8 G/DL (6.4-8.2) Albumin 3.8 G/DL (3.4-5.0) Globulin 4.0 g/dL Albumin/Globulin Ratio 0.9 (1.0-2.7) L Lipase 147 U/L (73-393) Ammonia < 10 umol/L (11-32) L Phosphorus Level 3.1 MG/DL (2.5-4.9) Magnesium Level 2.3 MG/DL (1.8-2.4) Test 10/28/20 12:30 10/28/20 18:05 White Blood Count 12.4 K/UL (4.8-10.8) H Red Blood Count 4.43 M/UL (4.70-6.10) L Hemoglobin 13.3 G/DL (14.2-18.0) L Hematocrit 40.7 % (42.0-52.0) L Mean Corpuscular Volume 92 FL (80-99) Mean Corpuscular Hemoglobin 30.0 PG (27.0-31.0) Mean Corpuscular Hemoglobin Concent 32.7 G/DL (32.0-36.0) Red Cell Distribution Width 13.6 % (11.6-14.8) Platelet Count 288 K/UL (150-450) Mean Platelet Volume 5.8 FL (6.5-10.1) L Neutrophils (%) (Auto) 66.9 % (45.0-75.0) Lymphocytes (%) (Auto) 22.0 % (20.0-45.0) Monocytes (%) (Auto) 9.4 % (1.0-10.0) Eosinophils (%) (Auto) 0.7 % (0.0-3.0) Basophils (%) (Auto) 1.0 % (0.0-2.0) Troponin I Pending Height (Feet): 5 Height (Inches): 7.00 Weight (Pounds): 207 Medications Current Medications Medications (Trade) Dose Ordered Sig/Alethea Route PRN Reason Start Time Stop Time Status Last Admin Dose Admin Acetaminophen (Tylenol) 650 mg Q6H PRN ORAL Mild Pain (Pain Scale 1-3) 10/28/20 03:00 11/27/20 02:59 Acetaminophen (Tylenol) 650 mg Q6H PRN ORAL Temp >100.5 10/28/20 03:00 11/27/20 02:59 Ceftriaxone Sodium 1 gm/ Dextrose 55 ml @ 110 mls/hr Q24H IVPB 10/28/20 21:00 11/04/20 20:59 Fluoxetine HCl (PROzac) 30 mg DAILY ORAL 10/28/20 17:00 11/27/20 16:59 10/28/20 16:16 Lorazepam (Ativan 2mg/ml 1ml) 1 mg Q3H PRN IV For Anxiety 10/28/20 03:00 11/04/20 02:59 Tamsulosin HCl (Flomax) 0.4 mg DAILY ORAL 10/28/20 10:00 11/27/20 09:59 10/28/20 10:06 Assessment/Plan Problem List: (1) Schizophrenia ICD Codes: F20.9 - Schizophrenia, unspecified SNOMED: 23053803 (2) Complication of Parmar catheter ICD Codes: T83.9XXA - Unspecified complication of genitourinary prosthetic device, implant and graft, initial encounter SNOMED: 775088331 (3) Suicide gesture ICD Codes: X83.8XXA - Intentional self-harm by other specified means, initial encounter SNOMED: 09966332 (4) Hematuria Assessment & Plan: pulled parmar blood and clots noted now clearing up still concerned patient urology eval hold on urethrogram until uro eval thank you ICD Codes: R31.9 - Hematuria, unspecified SNOMED: 84546936 (5) Dizziness ICD Codes: R42 - Dizziness and giddiness SNOMED: 418861089 (6) Drug overdose ICD Codes: T50.901A - Poisoning by unspecified drugs, medicaments and biological substances, accidental (unintentional), initial encounter SNOMED: 71747409 (7) Abdominal pain Assessment & Plan: likely from bladder irritation prior abd distention constipated okay for diet bowel regimen kub ordered will follow with recs and exam thank you ICD Codes: R10.9 - Unspecified abdominal pain SNOMED: 65674324 Toy Rodriguez Oct 28, 2020 18:35
--- NOTE | 2020-10-28 18:46 | NUR ---
NURSE HAND-OFF: Important Events on Shift:[chest pain, SOB] Patient Status: stable Diet: regular Pending Orders: Pending Results/Labs:PT, PTT, CMP Pending MD notification: Latest Vital Signs: Temperature 98.0 , Pulse 81 , B/P 125 /81 , Respiratory Rate 19 , O2 SAT 97 , Room Air, O2 Flow Rate . Vital Sign Comment: stable Latest Cardona Fall Score: 35 Fall Risk: Medium Risk Safety Measures: Call light Within Reach, Bed Alarm Zone 1, Side Rails Side Rails x2, Bed position Low and Locked. Fall Precautions: Yellow Socks Yellow Gown Patient Fall Education Report given to Wilder RN.
--- NOTE | 2020-10-28 19:34 | NUR ---
NURSE NOTES: The patient is alert and oriented x4 and does 't seem to be in any distress at this time.He is on room air with Resp even and unlabored.The patient has a Right FA 20g Iv line that is patent and asymptomatic.The patient is also able to ambulate to the bathroom but has a bedside urinal.The bed in low level and locked with call light within easy reach.Will continue to monitor as indicated
[2020-10-28 20:00] VITALS: BP 132/68
--- NOTE | 2020-10-28 21:02 | Diagnostic Imaging Report ---
EXAM: XR Chest, 1 View CLINICAL HISTORY: PAIN TECHNIQUE: Frontal view of the chest. COMPARISON: 10/14/2020. FINDINGS: Lungs: Unremarkable. No consolidation. Pleural space: Unremarkable. No pneumothorax. Heart: Borderline cardiomegaly. Mediastinum: Unremarkable. Bones/joints: Unremarkable. Vasculature: Calcified atherosclerotic disease of aorta. IMPRESSION: No acute cardiopulmonary disease.
[2020-10-28] MEDS: cefTRIAXone 1 GM in D5W 55 ML IVPB SCH (21:07)
--- NOTE | 2020-10-28 22:44 | Consultation ---
DATE OF CONSULTATION: 10/28/2020 CONSULTING PHYSICIAN: Bernard Burton MD REFERRING PHYSICIAN: Karen Fu M.D. REASON FOR CONSULTATION: Gross hematuria. HISTORY OF PRESENT ILLNESS: This is a 55-year-old male who was admitted to the hospital because of bleeding from his penis. Apparently, he was recently at a outside hospital, [facility], and a Ramirez catheter was placed and the patient pulled the catheter out. He has been able to urinate since coming out. He does have some psychiatric history. I did ask the nursing staff to check a bladder scan on him since he was voiding today and his scans were all less than 200 cc. In fact, his last bladder scan was reported to be zero. His urine has been slowly clearing and he seemed comfortable. PAST MEDICAL HISTORY: Significant for psychiatric disorder, hypertension, diabetes. PAST SURGICAL HISTORY: Unknown. MEDICATIONS: Current medication list in the hospital was reviewed. ALLERGIES: No known drug allergies. VITAL SIGNS: His temperature is 98, blood pressure 125/81. Urine earlier this morning was reported more bloody. His urine later showed blood tinge. LABORATORY DATA: Reviewed, showed a white count of 12.4, hemoglobin is stable at 13.3, and platelets are 288. BUN is 10, creatinine 0.8. INR is 1.0. IMAGING: The patient had a CT scan of the abdomen and pelvis 2 days ago. The kidneys were reported to be normal. No hydronephrosis. The bladder showed some distention, a normal-sized prostate, no stones. There was mention of a fat-containing left-sided inguinal hernia. IMPRESSION: 1. Gross hematuria, which appears to be secondary to Ramirez trauma. 2. Mild BPH history. 3. Lower urinary tract symptoms. 4. Possible neurogenic bladder. 5. Inguinal hernia. PLAN AND DISCUSSION: Again, the patient did have gross hematuria secondary to traumatic Ramirez removal, but the bleeding is now resolving. There is no active bleeding. He is able to void with low residuals. I did add Flomax earlier today and he is going to continue with that. He is also on antibiotics currently. The patient can be monitored clinically and as long as his renal function is stable and he is comfortable and voiding, we will not need to reinsert the Ramirez just yet because I am afraid that he may pull it out again, and he can have a cystoscopy at some point electively. Thank you for this consultation. Bernard Burton M.D. DR: GRACIELA JOB#: [id number] CC:
[2020-10-29] VITALS: BP 144/80
--- NOTE | 2020-10-29 03:00 | NUR ---
NURSE NOTES: The patient remained alert and stable and is cooperative with his care. However, he was noted with hematuria and had minimal bleeding after urination and that has happened twice already. Will followup with Dr. Burton as indicated.
[2020-10-29 04:00] VITALS: BP 140/86
--- NOTE | 2020-10-29 05:12 | NUR ---
NURSE NOTES: The patient was transferred to [address] [place] [address] and report given to Rosanne CANO .The patient is alert and stable with Resp even and unlabored. Was endorsed to her that the patient has a hematuria and was noted with minimal bleeding that lasted for a few second.
--- NOTE | 2020-10-29 05:30 | NUR ---
NURSES NOTE: Patient received from JEROME Hdz. Pt in stable condition. No outward s/s of distress noted. Breathing even and unlabored on 2L nasal canula. Pt weaned off. Sat is between 92% and 95% on RA. IV R FA in place, infusing IVF without incident. All due medications will be administered. Bed at lowest level. Call light within reach. Pt will continue to be monitored.
--- NOTE | 2020-10-29 06:53 | NUR ---
NURSE HAND-OFF: Important Events on Shift:[N/A] Patient Status: [STABLE] Diet: [REGULAR] Pending Orders: [N/A] Pending Results/Labs:[N/A] Pending MD notification:[N/A] Latest Vital Signs: Temperature 97.8 , Pulse 66 , B/P 140 /86 , Respiratory Rate 17 , O2 SAT 97 , Room Air, O2 Flow Rate . Vital Sign Comment: [WNL] Latest Cardona Fall Score: 35 Fall Risk: Medium Risk Safety Measures: Call light Within Reach, Bed Alarm Zone 1, Side Rails Side Rails x2, Bed position Low and Locked. Fall Precautions: Yellow Socks Yellow Gown Patient Fall Education Report given to [].
[2020-10-29 06:55] LABS: BASOPHILS % (AUTO) 0.7 % (0.0-2.0); EOSINOPHILS % (AUTO) 0.6 % (0.0-3.0); HEMATOCRIT 36.5 % (42.0-52.0); HEMOGLOBIN 12.6 G/DL (14.2-18.0); LYMPHOCYTES % (AUTO) 19.2 % (20.0-45.0); MEAN CORPUSCULAR VOLUME 88 FL (80-99); MONOCYTES % (AUTO) 7.8 % (1.0-10.0); NEUTROPHILS % (AUTO) 71.7 % (45.0-75.0); PLATELET COUNT 300 K/UL (150-450); RED BLOOD COUNT 4.15 M/UL (4.70-6.10); RED CELL DISTRIBUTION WIDTH 13.7 % (11.6-14.8); WHITE BLOOD COUNT 10.8 K/UL (4.8-10.8)
[2020-10-29 07:17] LABS: ALANINE AMINOTRANSFERASE 35 U/L (12-78); ALBUMIN 3.2 G/DL (3.4-5.0); ALBUMIN/GLOBULIN RATIO 0.9 (1.0-2.7); ALKALINE PHOSPHATASE 77 U/L (46-116); ANION GAP 5 mmol/L (5-15); ASPARTATE AMINO TRANSFERASE 33 U/L (15-37); BILIRUBIN,TOTAL 0.3 MG/DL (0.2-1.0); BLOOD UREA NITROGEN 11 mg/dL (7-18); CALCIUM 8.4 MG/DL (8.5-10.1); CARBON DIOXIDE 29 MMOL/L (21-32); CHLORIDE 103 MMOL/L (98-107); CREATININE 0.8 MG/DL (0.55-1.30); PHOSPHORUS 3.1 MG/DL (2.5-4.9); POTASSIUM 3.8 MMOL/L (3.5-5.1); SODIUM 137 MMOL/L (136-145)
--- NOTE | 2020-10-29 07:35 | NUR ---
NURSE NOTES: WALKING ROUNDS DONE WITH NIGHT RN. PATIENT AWAKE AND SMILING. VOIDED THIS AM. SCANT BLOOD CLOTS PRESENT IN URINE. DR. DILLARD HERE AND REPORTED TO MD. QUESTIONS ANSWERED, NEEDS MET AT THIS TIME. PATIENT STATES THEY ARE FEELING BETTER TODAY.BED IN LOW AND LOCKED POSITION. CALL LIGHT WITHIN REACH.
--- NOTE | 2020-10-29 07:43 | NUR ---
HAND OFF: Report given to JEROME Aleman.
[2020-10-29 08:00] VITALS: BP 108/52
--- NOTE | 2020-10-29 08:27 | Urology Progress Note ---
Assessment/Plan Assessment/Plan: 1. Gross hematuria (secondary to Ramirez trauma,) imprvoing. 2. Mild BPH history. 3. Lower urinary tract symptoms. 4. Possible neurogenic bladder. 5. Inguinal hernia. monitor clinically no active bleeding PVR OK renal fxn, h/h stable cont flomax on abx cysto electively Subjective Allergies: Coded Allergies: No Known Allergies (Verified , 10/01/10) Subjective voiding, last PVR minimal urine clearing Objective Last 24 Hour Vital Signs Date Time Temp Pulse Resp B/P (MAP) Pulse Ox O2 Delivery O2 Flow Rate FiO2 10/29/20 08:00 98.6 88 18 108/52 (70) 95 10/29/20 04:00 97.8 66 17 140/86 (104) 97 10/29/20 00:00 97.7 72 20 144/80 (101) 98 10/28/20 21:00 Room Air 10/28/20 20:00 98.3 81 18 132/68 (89) 97 10/28/20 16:00 98.0 81 19 125/81 (96) 97 10/28/20 12:00 97.6 76 18 127/71 (89) 96 10/28/20 09:00 Room Air Intake and Output 10/28/20 10/29/20 19:00 07:00 Intake Total 600 ml 0 ml Balance 600 ml 0 ml Intake Oral 0 ml Other 600 ml Current Medications Medications (Trade) Dose Ordered Sig/Alethea Route PRN Reason Start Time Stop Time Status Last Admin Dose Admin Acetaminophen (Tylenol) 650 mg Q6H PRN ORAL Mild Pain (Pain Scale 1-3) 10/28/20 03:00 11/27/20 02:59 Acetaminophen (Tylenol) 650 mg Q6H PRN ORAL Temp >100.5 10/28/20 03:00 11/27/20 02:59 Ceftriaxone Sodium 1 gm/ Dextrose 55 ml @ 110 mls/hr Q24H IVPB 10/28/20 21:00 11/04/20 20:59 10/28/20 21:07 Fluoxetine HCl (PROzac) 30 mg DAILY ORAL 10/28/20 17:00 11/27/20 16:59 10/28/20 16:16 Lorazepam (Ativan 2mg/ml 1ml) 1 mg Q3H PRN IV For Anxiety 10/28/20 03:00 11/04/20 02:59 Tamsulosin HCl (Flomax) 0.4 mg DAILY ORAL 10/28/20 10:00 11/27/20 09:59 10/28/20 10:06 Laboratory Tests 10/28/20 12:30: White Blood Count 12.4H, Red Blood Count 4.43L, Hemoglobin 13.3L, Hematocrit 40.7L, Mean Corpuscular Volume 92, Mean Corpuscular Hemoglobin 30.0, Mean Corpuscular Hemoglobin Concent 32.7, Red Cell Distribution Width 13.6, Platelet Count 288, Mean Platelet Volume 5.8L, Neutrophils (%) (Auto) 66.9, Lymphocytes (%) (Auto) 22.0, Monocytes (%) (Auto) 9.4, Eosinophils (%) (Auto) 0.7, Basophils (%) (Auto) 1.0 10/28/20 18:05: Troponin I 0.007 10/29/20 06:40: White Blood Count 10.8, Red Blood Count 4.15L, Hemoglobin 12.6L, Hematocrit 36.5L, Mean Corpuscular Volume 88, Mean Corpuscular Hemoglobin 30.4, Mean Corpuscular Hemoglobin Concent 34.5, Red Cell Distribution Width 13.7, Platelet Count 300, Mean Platelet Volume 6.0L, Neutrophils (%) (Auto) 71.7, Lymphocytes (%) (Auto) 19.2L, Monocytes (%) (Auto) 7.8, Eosinophils (%) (Auto) 0.6, Basophils (%) (Auto) 0.7, Prothrombin Time 10.9, Prothromb Time International Ratio 1.0, Activated Partial Thromboplast Time 25, Sodium Level 137, Potassium Level 3.8, Chloride Level 103, Carbon Dioxide Level 29, Anion Gap 5, Blood Urea Nitrogen 11, Creatinine 0.8, Estimat Glomerular Filtration Rate > 60, Glucose Level 149H, Calcium Level 8.4L, Phosphorus Level 3.1, Magnesium Level 2.3, Total Bilirubin 0.3, Aspartate Amino Transf (AST/SGOT) 33, Alanine Aminotransferase (ALT/SGPT) 35, Alkaline Phosphatase 77, Total Protein 6.9, Albumin 3.2L, Globu mirtha 3.7, Albumin/Globulin Ratio 0.9L Height (Feet): 5 Height (Inches): 7.00 Weight (Pounds): 207 Objective exam stable Bernard Burton MD Oct 29, 2020 08:27
[2020-10-29] MEDS: Tamsulosin 0.4mg cap ORAL SCH (08:52)
[2020-10-29] MEDS: FLUoxetine 10mg cap ORAL SCH (08:52)
--- NOTE | 2020-10-29 11:16 | Surgery Progress Note ---
Surgery Progress Note Subjective Symptoms: improved Additional Comments Patient seen and examined bedside. No acute events. Resting comfortably. Labs reviewed micro reviewed imaging reviewed. Afebrile hemodynamically stable at this time Objective Last 24 Hour Vital Signs Date Time Temp Pulse Resp B/P (MAP) Pulse Ox O2 Delivery O2 Flow Rate FiO2 10/29/20 09:00 Room Air 10/29/20 08:00 98.6 88 18 108/52 (70) 95 10/29/20 04:00 97.8 66 17 140/86 (104) 97 10/29/20 00:00 97.7 72 20 144/80 (101) 98 10/28/20 21:00 Room Air 10/28/20 20:00 98.3 81 18 132/68 (89) 97 10/28/20 16:00 98.0 81 19 125/81 (96) 97 10/28/20 12:00 97.6 76 18 127/71 (89) 96 I&O Intake and Output 10/28/20 10/29/20 19:00 07:00 Intake Total 600 ml 0 ml Balance 600 ml 0 ml Intake Oral 0 ml Other 600 ml Dressing: other Wound: other Cardiovascular: RSR Respiratory: decreased breath sounds Abdomen: soft, non-tender, present bowel sounds, non-distended Extremities: no tenderness, no cyanosis Laboratory Tests Test 10/28/20 12:30 10/28/20 18:05 10/29/20 06:40 White Blood Count 12.4 K/UL (4.8-10.8) H 10.8 K/UL (4.8-10.8) Red Blood Count 4.43 M/UL (4.70-6.10) L 4.15 M/UL (4.70-6.10) L Hemoglobin 13.3 G/DL (14.2-18.0) L 12.6 G/DL (14.2-18.0) L Hematocrit 40.7 % (42.0-52.0) L 36.5 % (42.0-52.0) L Mean Corpuscular Volume 92 FL (80-99) 88 FL (80-99) Mean Corpuscular Hemoglobin 30.0 PG (27.0-31.0) 30.4 PG (27.0-31.0) Mean Corpuscular Hemoglobin Concent 32.7 G/DL (32.0-36.0) 34.5 G/DL (32.0-36.0) Red Cell Distribution Width 13.6 % (11.6-14.8) 13.7 % (11.6-14.8) Platelet Count 288 K/UL (150-450) 300 K/UL (150-450) Mean Platelet Volume 5.8 FL (6.5-10.1) L 6.0 FL (6.5-10.1) L Neutrophils (%) (Auto) 66.9 % (45.0-75.0) 71.7 % (45.0-75.0) Lymphocytes (%) (Auto) 22.0 % (20.0-45.0) 19.2 % (20.0-45.0) L Monocytes (%) (Auto) 9.4 % (1.0-10.0) 7.8 % (1.0-10.0) Eosinophils (%) (Auto) 0.7 % (0.0-3.0) 0.6 % (0.0-3.0) Basophils (%) (Auto) 1.0 % (0.0-2.0) 0.7 % (0.0-2.0) Troponin I 0.007 ng/mL (0.000-0.056) Prothrombin Time 10.9 SEC (9.30-11.50) Prothromb Time International Ratio 1.0 (0.9-1.1) Activated Partial Thromboplast Time 25 SEC (23-33) Sodium Level 137 MMOL/L (136-145) Potassium Level 3.8 MMOL/L (3.5-5.1) Chloride Level 103 MMOL/L (98-107) Carbon Dioxide Level 29 MMOL/L (21-32) Anion Gap 5 mmol/L (5-15) Blood Urea Nitrogen 11 mg/dL (7-18) Creatinine 0.8 MG/DL (0.55-1.30) Estimat Glomerular Filtration Rate > 60 mL/min (>60) Glucose Level 149 MG/DL (74-106) H Calcium Level 8.4 MG/DL (8.5-10.1) L Phosphorus Level 3.1 MG/DL (2.5-4.9) Magnesium Level 2.3 MG/DL (1.8-2.4) Total Bilirubin 0.3 MG/DL (0.2-1.0) Aspartate Amino Transf (AST/SGOT) 33 U/L (15-37) Alanine Aminotransferase (ALT/SGPT) 35 U/L (12-78) Alkaline Phosphatase 77 U/L (46-116) Total Protein 6.9 G/DL (6.4-8.2) Albumin 3.2 G/DL (3.4-5.0) L Globulin 3.7 g/dL Albumin/Globulin Ratio 0.9 (1.0-2.7) L Plan Problems: (1) Schizophrenia (2) Complication of Parmar catheter (3) Suicide gesture (4) Hematuria Assessment & Plan: pulled parmar blood and clots noted now clearing up still concerned patient urology eval hold on urethrogram until uro eval thank you (5) Dizziness (6) Drug overdose (7) Abdominal pain Assessment & Plan: likely from bladder irritation prior abd distention constipated okay for diet bowel regimen kub ordered will follow with recs and exam thank you Toy Rodriguez Oct 29, 2020 11:16
[2020-10-29 11:29] VITALS: BP 128/85
--- NOTE | 2020-10-29 11:51 | NUR ---
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
--- NOTE | 2020-10-29 12:52 | Cardiology Report ---
APPROVED REPORT EKG Measurement Heart [id number] <Conclusion> Normal sinus rhythm Possible Inferior infarct, age undetermined Cannot rule out Anterior infarct, age undetermined Abnormal ECG
[2020-10-29] MEDS ORDERED: METFORMIN HCL500 M1 ORAL (13:57)
--- NOTE | 2020-10-29 14:12 | Diagnostic Imaging Report ---
Indication: Abdominal pain Technique: Supine view of the abdomen Comparison: none Findings: Bowel gas pattern is unremarkable. No masses or unusual calcifications. No significant change Impression: Negative
[2020-10-29] MEDS: LORazepam Inj 2mg/ml 1ml IV PRN (15:15)
--- NOTE | 2020-10-29 15:15 | NUR ---
NURSE NOTES: Received patient in bed, patient is alert and oriented x4, denies pain but patient verbalized that he is too much nervous,patient noted to ambulate frequently to the bathroom and hallway and screamed x1. When RN asked why he screamed he said " When I am too nervous, I do that, I feel something n my body.I feel little better now but I am so anxious for some reason and I need medicine." RN tried non- pharmaceutical intervention like talk therapy, hydration, pain assessment, TV, but ineffective. RN administered Ativan 1mg PRN as ordered. Wasted 1mg witnessed by another RN. Will continue to monitor. Bed alarm is on. RN explained to the patient to use call light if needed and also explain about medication. Patient said " I tried that before." Will continue to monitor.
--- NOTE | 2020-10-29 15:18 | NUR ---
NURSE HAND-OFF: Important Events on Shift:NONE Patient Status: STABLE Diet: REGULAR Pending Orders: N/A Pending Results/Labs:N/A Pending MD notification: N/A Latest Vital Signs: Temperature 98.8 , Pulse 76 , B/P 131 /75 , Respiratory Rate 21 , O2 SAT 98 , Room Air, O2 Flow Rate . Vital Sign Comment: N/A Latest Cardona Fall Score: 35 Fall Risk: Medium Risk Safety Measures: Call light Within Reach, Bed Alarm Zone 1, Side Rails Side Rails x2, Bed position Low and Locked. Fall Precautions: Yellow Socks Door Sign Patient Fall Education Report given to NEETU CANO.
--- NOTE | 2020-10-29 15:26 | Internal Med Progress Note ---
Subjective Physician Name Karen Fu Attending Physician Karen Fu M.D. Current Medications Medications (Trade) Dose Ordered Sig/Alethea Route PRN Reason Start Time Stop Time Status Last Admin Dose Admin Acetaminophen (Tylenol) 650 mg Q6H PRN ORAL Mild Pain (Pain Scale 1-3) 10/28/20 03:00 11/27/20 02:59 Acetaminophen (Tylenol) 650 mg Q6H PRN ORAL Temp >100.5 10/28/20 03:00 11/27/20 02:59 Ceftriaxone Sodium 1 gm/ Dextrose 55 ml @ 110 mls/hr Q24H IVPB 10/28/20 21:00 11/04/20 20:59 10/28/20 21:07 Fluoxetine HCl (PROzac) 30 mg DAILY ORAL 10/28/20 17:00 11/27/20 16:59 10/29/20 08:52 Lorazepam (Ativan 2mg/ml 1ml) 1 mg Q3H PRN IV For Anxiety 10/28/20 03:00 11/04/20 02:59 10/29/20 15:15 Tamsulosin HCl (Flomax) 0.4 mg DAILY ORAL 10/28/20 10:00 11/27/20 09:59 10/29/20 08:52 Allergies: Coded Allergies: No Known Allergies (Verified , 10/01/10) ROS Limited/Unobtainable: No All Systems: reviewed and negative except above Subjective no further chest pain today hematuria improving Objective Last Vital Signs Date Time Temp Pulse Resp B/P (MAP) Pulse Ox O2 Delivery O2 Flow Rate FiO2 10/29/20 15:15 76 21 131/75 98 10/29/20 11:29 98.8 10/29/20 09:00 Room Air Laboratory Tests Test 10/28/20 18:05 10/29/20 06:40 Troponin I 0.007 ng/mL (0.000-0.056) White Blood Count 10.8 K/UL (4.8-10.8) Red Blood Count 4.15 M/UL (4.70-6.10) L Hemoglobin 12.6 G/DL (14.2-18.0) L Hematocrit 36.5 % (42.0-52.0) L Mean Corpuscular Volume 88 FL (80-99) Mean Corpuscular Hemoglobin 30.4 PG (27.0-31.0) Mean Corpuscular Hemoglobin Concent 34.5 G/DL (32.0-36.0) Red Cell Distribution Width 13.7 % (11.6-14.8) Platelet Count 300 K/UL (150-450) Mean Platelet Volume 6.0 FL (6.5-10.1) L Neutrophils (%) (Auto) 71.7 % (45.0-75.0) Lymphocytes (%) (Auto) 19.2 % (20.0-45.0) L Monocytes (%) (Auto) 7.8 % (1.0-10.0) Eosinophils (%) (Auto) 0.6 % (0.0-3.0) Basophils (%) (Auto) 0.7 % (0.0-2.0) Prothrombin Time 10.9 SEC (9.30-11.50) Prothromb Time International Ratio 1.0 (0.9-1.1) Activated Partial Thromboplast Time 25 SEC (23-33) Sodium Level 137 MMOL/L (136-145) Potassium Level 3.8 MMOL/L (3.5-5.1) Chloride Level 103 MMOL/L (98-107) Carbon Dioxide Level 29 MMOL/L (21-32) Anion Gap 5 mmol/L (5-15) Blood Urea Nitrogen 11 mg/dL (7-18) Creatinine 0.8 MG/DL (0.55-1.30) Estimat Glomerular Filtration Rate > 60 mL/min (>60) Glucose Level 149 MG/DL (74-106) H Calcium Level 8.4 MG/DL (8.5-10.1) L Phosphorus Level 3.1 MG/DL (2.5-4.9) Magnesium Level 2.3 MG/DL (1.8-2.4) Total Bilirubin 0.3 MG/DL (0.2-1.0) Aspartate Amino Transf (AST/SGOT) 33 U/L (15-37) Alanine Aminotransferase (ALT/SGPT) 35 U/L (12-78) Alkaline Phosphatase 77 U/L (46-116) Total Protein 6.9 G/DL (6.4-8.2) Albumin 3.2 G/DL (3.4-5.0) L Globulin 3.7 g/dL Albumin/Globulin Ratio 0.9 (1.0-2.7) L Intake and Output 10/28/20 10/29/20 19:00 07:00 Intake Total 600 ml 0 ml Balance 600 ml 0 ml Intake Oral 0 ml Other 600 ml Objective General appearance: alert, cooperative, no distress, appears stated age Head: Normocephalic, without obvious abnormality, atraumatic Eyes: conjunctivae/corneas clear. PERRL, EOM's intact. Fundi benign Throat: Lips, mucosa, and tongue normal. Teeth and gums normal Neck: supple, symmetrical, trachea midline, no adenopathy, thyroid: not enlarged, symmetric, no tenderness/mass/nodules, no carotid bruit and no JVD Lungs: clear to auscultation bilaterally Heart: regular rate and rhythm, S1, S2 normal, no murmur, click, rub or gallop Abdomen: soft, non-tender. Bowel sounds normal. No masses, no organomegaly Extremities: extremities normal, atraumatic, no cyanosis or edema Pulses: 2+ and symmetric Skin: Skin color, texture, turgor normal. No rashes or lesions Neurologic: Grossly normal Assessment/Plan Status Narrative #hematuria #UTI? #BPH #Depression - admit inpatient - monitor cbc - urology eval - ceftriaxone 1g daily - flomax 0.4mg daily - resume home meds - cardiology eval - pain control Karen Fu M.D. Oct 29, 2020 15:26
--- NOTE | 2020-10-29 15:40 | NUR ---
NURSE NOTES: Dr. Fu made round and RN relayed patient's behavior with new order to get psych consult with Dr. Nagy. Patient is alsleep @ this time, easily awake, V/S stable. Will continue to monitor.
[2020-10-29 16:00] VITALS: BP 125/75
--- NOTE | 2020-10-29 16:08 | Cardiac Electrophysiology PN ---
Subjective Subjective [id number] Objective Last 24 Hour Vital Signs Date Time Temp Pulse Resp B/P (MAP) Pulse Ox O2 Delivery O2 Flow Rate FiO2 10/29/20 15:45 70 18 125/76 97 10/29/20 15:15 76 21 131/75 98 10/29/20 11:29 98.8 71 18 128/85 (99) 96 10/29/20 09:00 Room Air 10/29/20 08:00 98.6 88 18 108/52 (70) 95 10/29/20 04:00 97.8 66 17 140/86 (104) 97 10/29/20 00:00 97.7 72 20 144/80 (101) 98 10/28/20 21:00 Room Air 10/28/20 20:00 98.3 81 18 132/68 (89) 97 Intake and Output 10/28/20 10/29/20 19:00 07:00 Intake Total 600 ml 0 ml Balance 600 ml 0 ml Intake Oral 0 ml Other 600 ml Laboratory Tests Test 10/28/20 18:05 10/29/20 06:40 Troponin I 0.007 ng/mL (0.000-0.056) White Blood Count 10.8 K/UL (4.8-10.8) Red Blood Count 4.15 M/UL (4.70-6.10) L Hemoglobin 12.6 G/DL (14.2-18.0) L Hematocrit 36.5 % (42.0-52.0) L Mean Corpuscular Volume 88 FL (80-99) Mean Corpuscular Hemoglobin 30.4 PG (27.0-31.0) Mean Corpuscular Hemoglobin Concent 34.5 G/DL (32.0-36.0) Red Cell Distribution Width 13.7 % (11.6-14.8) Platelet Count 300 K/UL (150-450) Mean Platelet Volume 6.0 FL (6.5-10.1) L Neutrophils (%) (Auto) 71.7 % (45.0-75.0) Lymphocytes (%) (Auto) 19.2 % (20.0-45.0) L Monocytes (%) (Auto) 7.8 % (1.0-10.0) Eosinophils (%) (Auto) 0.6 % (0.0-3.0) Basophils (%) (Auto) 0.7 % (0.0-2.0) Prothrombin Time 10.9 SEC (9.30-11.50) Prothromb Time International Ratio 1.0 (0.9-1.1) Activated Partial Thromboplast Time 25 SEC (23-33) Sodium Level 137 MMOL/L (136-145) Potassium Level 3.8 MMOL/L (3.5-5.1) Chloride Level 103 MMOL/L (98-107) Carbon Dioxide Level 29 MMOL/L (21-32) Anion Gap 5 mmol/L (5-15) Blood Urea Nitrogen 11 mg/dL (7-18) Creatinine 0.8 MG/DL (0.55-1.30) Estimat Glomerular Filtration Rate > 60 mL/min (>60) Glucose Level 149 MG/DL (74-106) H Calcium Level 8.4 MG/DL (8.5-10.1) L Phosphorus Level 3.1 MG/DL (2.5-4.9) Magnesium Level 2.3 MG/DL (1.8-2.4) Total Bilirubin 0.3 MG/DL (0.2-1.0) Aspartate Amino Transf (AST/SGOT) 33 U/L (15-37) Alanine Aminotransferase (ALT/SGPT) 35 U/L (12-78) Alkaline Phosphatase 77 U/L (46-116) Total Protein 6.9 G/DL (6.4-8.2) Albumin 3.2 G/DL (3.4-5.0) L Globulin 3.7 g/dL Albumin/Globulin Ratio 0.9 (1.0-2.7) L Efrem Salazar MD Oct 29, 2020 16:08
--- NOTE | 2020-10-29 16:57 | NUR ---
NURSE NOTES: Patient is awake, stating " I feel ok." Patient is calm, no episodes of anxiety or restlessness. RN left message to Dr. Nagy for a new consult.
--- NOTE | 2020-10-29 17:45 | NUR ---
NURSE NOTES: Patient states that he takes metformin 500mg twice a day @ home but no insulin. RN followed up with Dr. Fu. Dr. Fu wants to continue metformin. Patient ate 100% of dinner without any issue and he verbalizes he is not anxious anymore.Patient is calm, sitting up in a chair watching TV @ this time. Will continue to monitor.No bloody urine, patient able to urinate without pain or discomfort.
--- NOTE | 2020-10-29 18:00 | NUR ---
NURSE NOTES: Dr. Nagy is aware of new consult.
[2020-10-29] MEDS: metFORMIN 500mg tab ORAL SCH (18:19)
--- NOTE | 2020-10-29 18:48 | NUR ---
NURSE HAND-OFF: Important Events on Shift: episodes of anxiety, restlessness administered ativan 1mg IVP, Dr. Nagy for new consult and started metformin Patient Status: stable Diet: regular diet Pending Orders: 2D echo, EKG in am Pending Results/Labs: Pending MD notification: Latest Vital Signs: Temperature 98.6 , Pulse 70 , B/P 125 /75 , Respiratory Rate 18 , O2 SAT 98 , Room Air, O2 Flow Rate . Vital Sign Comment: Latest Cardona Fall Score: 35 Fall Risk: Medium Risk Safety Measures: Call light Within Reach, Bed Alarm Zone 1, Side Rails Side Rails x2, Bed position Low and Locked. Fall Precautions: Yellow Socks Door Sign Patient Fall Education Report given to Roberto and endorsed plan of care.
--- NOTE | 2020-10-29 19:00 | Consultation ---
DATE OF CONSULTATION: 10/29/2020 CARDIOLOGY CONSULTATION CONSULTING PHYSICIAN: Efrem Salazar MD REFERRING PHYSICIAN: Karen Fu MD REASON FOR CONSULTATION: Management of hypertension and chest pain. The patient also has diabetes. HISTORY OF PRESENT ILLNESS: The patient is a 55-year-old gentleman with history of hypertension, diabetes, and hyperlipidemia, who presented to the emergency room for bleeding from his penis. The patient was seen in [facility], had a Ramirez catheter placed, and reportedly pulled the catheter subsequently. The patient had recent imaging that showed distended stomach and hiatal hernia. While the patient was there, he complained of chest pain and a Cardiology consultation was obtained for further evaluation and management. REVIEW OF SYSTEMS: Negative other than what is mentioned in history of present illness. PAST MEDICAL HISTORY: As mentioned above. HOME MEDICATIONS: He is on amlodipine 5 mg daily as well as losartan/hydrochlorothiazide 100/25 mg daily as well as Toprol 25 mg daily will be all resumed. FAMILY HISTORY: Noncontributory. SOCIAL HISTORY: He does not smoke or drink alcohol. PHYSICAL EXAMINATION: VITAL SIGNS: Show blood pressure of 124/76, pulse is 70, respirations 18, and he is afebrile. HEAD AND NECK: Shows no JVD. LUNGS: Clear. CARDIOVASCULAR: Shows regular S1 and S2 with no gallop or murmur. ABDOMEN: Soft. EXTREMITIES: No pitting edema. LABORATORY DATA: Labs show white count 10.8, hemoglobin 12.6, hematocrit 36.5, platelet count of 300,000. Sodium 137, potassium 3.8, BUN of 11, creatinine 0.8, and glucose of 149. The first troponin is negative. Serum alcohol is less than 3. INR is 1. ASSESSMENT AND PLAN: 1. Atypical chest pain. The first troponin is negative. We will completely rule out PR protocol and get an echocardiogram for further evaluation. 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 2. Hypertension. Resume the patient's antihypertensive agents. 3. Benign prostatic hypertrophy, on Flomax. He also has UTI and is on ceftriaxone. Further evaluation by Dr. Burton. 4. Diabetes, on metformin. Thank you very much for allowing me to participate in the care of this patient. Please do not hesitate to contact me for any questions regarding my evaluation. Efrem Salazar M.D. DR: Alysia JOB#: [id number] CC:
--- NOTE | 2020-10-29 19:15 | NUR ---
NURSE NOTES: Received report from JEROME Blake. Pt is currently sleeping and in no apparent distress. Side rails up x2, call light within reach, bed locked and in lowest position. Pt has no needs right now, will continue to monitor.
[2020-10-29 20:00] VITALS: BP 150/88
[2020-10-29] MEDS: cefTRIAXone 1 GM in D5W 55 ML IVPB SCH (21:02)
[2020-10-30] VITALS: BP 135/81
[2020-10-30 04:00] VITALS: BP 138/84
[2020-10-30 06:11] LABS: BASOPHILS % (AUTO) 1.2 % (0.0-2.0); EOSINOPHILS % (AUTO) 1.2 % (0.0-3.0); HEMATOCRIT 35.3 % (42.0-52.0); HEMOGLOBIN 12.3 G/DL (14.2-18.0); LYMPHOCYTES % (AUTO) 26.9 % (20.0-45.0); MEAN CORPUSCULAR VOLUME 88 FL (80-99); MONOCYTES % (AUTO) 8.4 % (1.0-10.0); NEUTROPHILS % (AUTO) 62.2 % (45.0-75.0); PLATELET COUNT 291 K/UL (150-450); RED BLOOD COUNT 4.03 M/UL (4.70-6.10); RED CELL DISTRIBUTION WIDTH 14.8 % (11.6-14.8); WHITE BLOOD COUNT 11.9 K/UL (4.8-10.8)
[2020-10-30 06:27] LABS: ANION GAP 8 mmol/L (5-15); BLOOD UREA NITROGEN 11 mg/dL (7-18); CALCIUM 8.3 MG/DL (8.5-10.1); CARBON DIOXIDE 28 MMOL/L (21-32); CHLORIDE 104 MMOL/L (98-107); CREATININE 0.8 MG/DL (0.55-1.30); PHOSPHORUS 3.3 MG/DL (2.5-4.9); POTASSIUM 3.7 MMOL/L (3.5-5.1); SODIUM 140 MMOL/L (136-145)
--- NOTE | 2020-10-30 07:20 | NUR ---
NURSE HAND-OFF: Important Events on Shift: Pt had clear yellow urine with no clots or blood at 0400 Patient Status: awake and calm Diet: regular Pending Orders: Pending Results/Labs: Pending MD notification: Latest Vital Signs: Temperature 97.8 , Pulse 65 , B/P 138 /84 , Respiratory Rate 18 , O2 SAT 97 , Room Air, O2 Flow Rate . Vital Sign Comment: VSS Latest Cardona Fall Score: 35 Fall Risk: Medium Risk Safety Measures: Call light Within Reach, Bed Alarm Zone 1, Side Rails Side Rails x2, Bed position Low and Locked. Fall Precautions: Yellow Socks Door Sign Patient Fall Education Report given to JEROME Yang.
--- NOTE | 2020-10-30 07:45 | NUR ---
NURSE NOTES: Received report from JEROME Vaughn. Pt walking on hallway, alert and oriented, no apparent distress noted. No behavior issue at this time. Denies any pain or discomfort at this time. Scall light within reach, bed locked and in lowest position. Will continue to monitor.
[2020-10-30 08:00] VITALS: BP 135/80
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
[2020-10-30] MEDS: metFORMIN 500mg tab ORAL SCH ×2 (08:41→18:23)
[2020-10-30] MEDS: Tamsulosin 0.4mg cap ORAL SCH (08:42)
[2020-10-30] MEDS: Metoprolol Succinate XL 25mg tab ORAL SCH (08:42)
[2020-10-30] MEDS: FLUoxetine 10mg cap ORAL SCH (08:42)
--- NOTE | 2020-10-30 11:40 | Surgery Progress Note ---
Surgery Progress Note Subjective Symptoms: improved, pain absent, tolerating diet, voiding well, passing flatus, BM Additional Comments hematuria resolved clear urine no complaints Objective Last 24 Hour Vital Signs Date Time Temp Pulse Resp B/P (MAP) Pulse Ox O2 Delivery O2 Flow Rate FiO2 10/30/20 09:00 Room Air 10/30/20 08:42 76 135/80 10/30/20 08:42 76 135/80 10/30/20 08:00 97.4 76 18 135/80 (98) 98 10/30/20 04:00 97.8 65 18 138/84 (102) 97 10/30/20 00:00 98.7 71 18 135/81 (99) 98 10/29/20 21:00 Room Air 10/29/20 20:00 98.6 67 17 150/88 (108) 97 10/29/20 16:00 98.6 70 18 125/75 (92) 98 10/29/20 15:45 70 18 125/76 97 10/29/20 15:15 76 21 131/75 98 I&O Intake and Output 10/29/20 10/30/20 19:00 07:00 Intake Total 540 ml 550 ml Balance 540 ml 550 ml Intake Oral 540 ml 550 ml # Voids 3 2 Cardiovascular: RSR Respiratory: clear Abdomen: soft, flat, non-tender, present bowel sounds, non-distended Extremities: no edema, no tenderness, no cyanosis Laboratory Tests Test 10/30/20 05:10 White Blood Count 11.9 K/UL (4.8-10.8) H Red Blood Count 4.03 M/UL (4.70-6.10) L Hemoglobin 12.3 G/DL (14.2-18.0) L Hematocrit 35.3 % (42.0-52.0) L Mean Corpuscular Volume 88 FL (80-99) Mean Corpuscular Hemoglobin 30.6 PG (27.0-31.0) Mean Corpuscular Hemoglobin Concent 35.0 G/DL (32.0-36.0) Red Cell Distribution Width 14.8 % (11.6-14.8) Platelet Count 291 K/UL (150-450) Mean Platelet Volume 5.8 FL (6.5-10.1) L Neutrophils (%) (Auto) 62.2 % (45.0-75.0) Lymphocytes (%) (Auto) 26.9 % (20.0-45.0) Monocytes (%) (Auto) 8.4 % (1.0-10.0) Eosinophils (%) (Auto) 1.2 % (0.0-3.0) Basophils (%) (Auto) 1.2 % (0.0-2.0) Sodium Level 140 MMOL/L (136-145) Potassium Level 3.7 MMOL/L (3.5-5.1) Chloride Level 104 MMOL/L (98-107) Carbon Dioxide Level 28 MMOL/L (21-32) Anion Gap 8 mmol/L (5-15) Blood Urea Nitrogen 11 mg/dL (7-18) Creatinine 0.8 MG/DL (0.55-1.30) Estimat Glomerular Filtration Rate > 60 mL/min (>60) Glucose Level 116 MG/DL (74-106) H Calcium Level 8.3 MG/DL (8.5-10.1) L Phosphorus Level 3.3 MG/DL (2.5-4.9) Magnesium Level 2.1 MG/DL (1.8-2.4) Troponin I 0.000 ng/mL (0.000-0.056) Pro-B-Type Natriuretic Peptide 104 pg/mL (0-125) Plan Problems: (1) Schizophrenia (2) Complication of Parmar catheter (3) Suicide gesture (4) Hematuria Assessment & Plan: pulled parmar blood and clots noted now clearing up still concerned patient urology eval hold on urethrogram until uro eval thank you (5) Dizziness (6) Drug overdose (7) Abdominal pain Assessment & Plan: likely from bladder irritation prior abd distention constipated okay for diet bowel regimen kub ordered will follow with recs and exam thank you Toy Rodriguez Oct 30, 2020 11:40
[2020-10-30 12:00] VITALS: BP 145/77
--- NOTE | 2020-10-30 13:30 | Internal Med Progress Note ---
Subjective Physician Name Karen Fu Attending Physician Karen Fu M.D. Current Medications Medications (Trade) Dose Ordered Sig/Alethea Route PRN Reason Start Time Stop Time Status Last Admin Dose Admin Acetaminophen (Tylenol) 650 mg Q6H PRN ORAL Mild Pain (Pain Scale 1-3) 10/28/20 03:00 11/27/20 02:59 Acetaminophen (Tylenol) 650 mg Q6H PRN ORAL Temp >100.5 10/28/20 03:00 11/27/20 02:59 Amlodipine Besylate (Norvasc) 5 mg DAILY ORAL 10/30/20 09:00 11/29/20 08:59 10/30/20 08:42 Ceftriaxone Sodium 1 gm/ Dextrose 55 ml @ 110 mls/hr Q24H IVPB 10/28/20 21:00 11/04/20 20:59 10/29/20 21:02 Fluoxetine HCl (PROzac) 30 mg DAILY ORAL 10/28/20 17:00 11/27/20 16:59 10/30/20 08:42 Lorazepam (Ativan 2mg/ml 1ml) 1 mg Q3H PRN IV For Anxiety 10/28/20 03:00 11/04/20 02:59 10/29/20 15:15 Metformin HCl (Glucophage) 500 mg TWICE A DAY ORAL 10/29/20 18:00 11/28/20 17:59 10/30/20 08:41 Metoprolol Succinate (Toprol XL) 25 mg DAILY ORAL 10/30/20 09:00 01/28/21 08:59 10/30/20 08:42 Tamsulosin HCl (Flomax) 0.4 mg DAILY ORAL 10/28/20 10:00 11/27/20 09:59 10/30/20 08:42 Allergies: Coded Allergies: No Known Allergies (Verified , 10/01/10) Subjective no further chest pain today hematuria improving Objective Last Vital Signs Date Time Temp Pulse Resp B/P (MAP) Pulse Ox O2 Delivery O2 Flow Rate FiO2 10/30/20 12:00 98.5 73 18 145/77 (99) 98 10/30/20 09:00 Room Air Laboratory Tests Test 10/30/20 05:10 White Blood Count 11.9 K/UL (4.8-10.8) H Red Blood Count 4.03 M/UL (4.70-6.10) L Hemoglobin 12.3 G/DL (14.2-18.0) L Hematocrit 35.3 % (42.0-52.0) L Mean Corpuscular Volume 88 FL (80-99) Mean Corpuscular Hemoglobin 30.6 PG (27.0-31.0) Mean Corpuscular Hemoglobin Concent 35.0 G/DL (32.0-36.0) Red Cell Distribution Width 14.8 % (11.6-14.8) Platelet Count 291 K/UL (150-450) Mean Platelet Volume 5.8 FL (6.5-10.1) L Neutrophils (%) (Auto) 62.2 % (45.0-75.0) Lymphocytes (%) (Auto) 26.9 % (20.0-45.0) Monocytes (%) (Auto) 8.4 % (1.0-10.0) Eosinophils (%) (Auto) 1.2 % (0.0-3.0) Basophils (%) (Auto) 1.2 % (0.0-2.0) Sodium Level 140 MMOL/L (136-145) Potassium Level 3.7 MMOL/L (3.5-5.1) Chloride Level 104 MMOL/L (98-107) Carbon Dioxide Level 28 MMOL/L (21-32) Anion Gap 8 mmol/L (5-15) Blood Urea Nitrogen 11 mg/dL (7-18) Creatinine 0.8 MG/DL (0.55-1.30) Estimat Glomerular Filtration Rate > 60 mL/min (>60) Glucose Level 116 MG/DL (74-106) H Calcium Level 8.3 MG/DL (8.5-10.1) L Phosphorus Level 3.3 MG/DL (2.5-4.9) Magnesium Level 2.1 MG/DL (1.8-2.4) Troponin I 0.000 ng/mL (0.000-0.056) Pro-B-Type Natriuretic Peptide 104 pg/mL (0-125) Intake and Output 10/29/20 10/30/20 19:00 07:00 Intake Total 540 ml 550 ml Balance 540 ml 550 ml Intake Oral 540 ml 550 ml # Voids 3 2 Objective General appearance: alert, cooperative, no distress, appears stated age Head: Normocephalic, without obvious abnormality, atraumatic Eyes: conjunctivae/corneas clear. PERRL, EOM's intact. Fundi benign Throat: Lips, mucosa, and tongue normal. Teeth and gums normal Neck: supple, symmetrical, trachea midline, no adenopathy, thyroid: not enlarged, symmetric, no tenderness/mass/nodules, no carotid bruit and no JVD Lungs: clear to auscultation bilaterally Heart: regular rate and rhythm, S1, S2 normal, no murmur, click, rub or gallop Abdomen: soft, non-tender. Bowel sounds normal. No masses, no organomegaly Extremities: extremities normal, atraumatic, no cyanosis or edema Pulses: 2+ and symmetric Skin: Skin color, texture, turgor normal. No rashes or lesions Neurologic: Grossly normal Assessment/Plan Status Narrative #hematuria #UTI? #BPH #Depression - admit inpatient - monitor cbc - urology eval - ceftriaxone 1g daily - flomax 0.4mg daily - resume home meds - cardiology eval - pain control Karen Fu M.D. Oct 30, 2020 13:30
[2020-10-30 16:00] VITALS: BP 158/72
--- NOTE | 2020-10-30 19:30 | NUR ---
NURSE HAND-OFF: Important Events on Shift:[No blood in urine. No c/o pain. no behavior issue] Patient Status: [stable] Diet: [reg] Pending Orders: [] Pending Results/Labs:[] Pending MD notification:[] Latest Vital Signs: Temperature 98.4 , Pulse 70 , B/P 158 /72 , Respiratory Rate 18 , O2 SAT 98 , Room Air, O2 Flow Rate . Vital Sign Comment: [stable] Latest Cardona Fall Score: 35 Fall Risk: Medium Risk Safety Measures: Call light Within Reach, Bed Alarm Zone 1, Side Rails Side Rails x2, Bed position Low and Locked. Fall Precautions: Yellow Socks Door Sign Patient Fall Education Report given to [Johnnie,RN].
--- NOTE | 2020-10-30 19:30 | NUR ---
NURSE NOTES: Receive a report from Celia(JEROME Jones). Round is made. Pt is awake. Denies any pain. Pt says that no blood is in urine. Provide fall precautions. Pt remains calm. Call light within reach. Will continue to monitor.
[2020-10-30 20:00] VITALS: BP 131/70
[2020-10-30] MEDS: cefTRIAXone 1 GM in D5W 55 ML IVPB SCH (20:39)
--- NOTE | 2020-10-30 21:30 | NUR ---
NURSE NOTES: Pt says he feels anxious. Given prn Ativan 1mg IVS. Will continue to monitor.
[2020-10-30] MEDS: LORazepam Inj 2mg/ml 1ml IV PRN (21:31)
--- NOTE | 2020-10-30 21:46 | Cardiac Electrophysiology PN ---
Assessment/Plan Assessment/Plan 1. Atypical chest pain. 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 2. Hypertension. On NOrvasc and Toprol 3. Benign prostatic hypertrophy, on Flomax. 4. Hematuria and UTI and is on ceftriaxone. Further evaluation by Dr. Burton. 5. Diabetes, on metformin. Subjective Subjective No CP or SOB. Echo EF 65%. No events Objective Last 24 Hour Vital Signs Date Time Temp Pulse Resp B/P (MAP) Pulse Ox O2 Delivery O2 Flow Rate FiO2 10/30/20 16:00 98.4 70 18 158/72 (100) 98 10/30/20 12:00 98.5 73 18 145/77 (99) 98 10/30/20 09:00 Room Air 10/30/20 08:42 76 135/80 10/30/20 08:42 76 135/80 10/30/20 08:00 97.4 76 18 135/80 (98) 98 10/30/20 04:00 97.8 65 18 138/84 (102) 97 10/30/20 00:00 98.7 71 18 135/81 (99) 98 Intake and Output 10/29/20 10/30/20 19:00 07:00 Intake Total 540 ml 550 ml Balance 540 ml 550 ml Intake Oral 540 ml 550 ml # Voids 3 2 Laboratory Tests Test 10/30/20 05:10 White Blood Count 11.9 K/UL (4.8-10.8) H Red Blood Count 4.03 M/UL (4.70-6.10) L Hemoglobin 12.3 G/DL (14.2-18.0) L Hematocrit 35.3 % (42.0-52.0) L Mean Corpuscular Volume 88 FL (80-99) Mean Corpuscular Hemoglobin 30.6 PG (27.0-31.0) Mean Corpuscular Hemoglobin Concent 35.0 G/DL (32.0-36.0) Red Cell Distribution Width 14.8 % (11.6-14.8) Platelet Count 291 K/UL (150-450) Mean Platelet Volume 5.8 FL (6.5-10.1) L Neutrophils (%) (Auto) 62.2 % (45.0-75.0) Lymphocytes (%) (Auto) 26.9 % (20.0-45.0) Monocytes (%) (Auto) 8.4 % (1.0-10.0) Eosinophils (%) (Auto) 1.2 % (0.0-3.0) Basophils (%) (Auto) 1.2 % (0.0-2.0) Sodium Level 140 MMOL/L (136-145) Potassium Level 3.7 MMOL/L (3.5-5.1) Chloride Level 104 MMOL/L (98-107) Carbon Dioxide Level 28 MMOL/L (21-32) Anion Gap 8 mmol/L (5-15) Blood Urea Nitrogen 11 mg/dL (7-18) Creatinine 0.8 MG/DL (0.55-1.30) Estimat Glomerular Filtration Rate > 60 mL/min (>60) Glucose Level 116 MG/DL (74-106) H Calcium Level 8.3 MG/DL (8.5-10.1) L Phosphorus Level 3.3 MG/DL (2.5-4.9) Magnesium Level 2.1 MG/DL (1.8-2.4) Troponin I 0.000 ng/mL (0.000-0.056) Pro-B-Type Natriuretic Peptide 104 pg/mL (0-125) Objective HEAD AND NECK: Shows no JVD. LUNGS: Clear. CARDIOVASCULAR: Shows regular S1 and S2 with no gallop or murmur. ABDOMEN: Soft. EXTREMITIES: No pitting edema. Efrem Salazar MD Oct 30, 2020 21:46
[2020-10-31] VITALS: BP 135/70
[2020-10-31 04:30] VITALS: BP 135/73
--- NOTE | 2020-10-31 07:20 | NUR ---
NURSE HAND-OFF: Important Events on Shift: Self-void x4, Denies pain. Pt kept forgetting to use urinal to show urine color. Re-educate pt. Patient Status: [stable] Diet: [regular] Pending Orders: [] Pending Results/Labs:[] Pending MD notification:[] Latest Vital Signs: Temperature 98.6 , Pulse 92 , B/P 122 /67 , Respiratory Rate 18 , O2 SAT 99 , Nasal Cannula, O2 Flow Rate 2.0 . Vital Sign Comment: [] Latest Cardona Fall Score: 70 Fall Risk: High Risk Safety Measures: Call light Within Reach, Bed Alarm Zone 1, Side Rails Side Rails x2, Bed position Low and Locked. Fall Precautions: Yellow Socks Door Sign Patient Fall Education Report given to JEROME Jones (Oliva).
--- NOTE | 2020-10-31 07:36 | NUR ---
NURSE NOTES: Received report from JEROME Blair. Pt in bed alert and oriented, no apparent distress noted. No behavior issue at this time. Denies any pain or discomfort at this time. Call light within reach, bed locked and in lowest position. Will continue to monitor.
[2020-10-31 08:00] VITALS: BP 126/71
[2020-10-31] MEDS: FLUoxetine 10mg cap ORAL SCH (08:37)
[2020-10-31] MEDS: Tamsulosin 0.4mg cap ORAL SCH (08:37)
[2020-10-31] MEDS: metFORMIN 500mg tab ORAL SCH (08:37)
[2020-10-31] MEDS: Metoprolol Succinate XL 25mg tab ORAL SCH (08:38)
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
[2020-10-31 12:00] VITALS: BP 131/66
--- NOTE | 2020-10-31 12:17 | Internal Med Progress Note ---
Subjective Physician Name Karen Fu Attending Physician Karen Fu M.D. Current Medications Medications (Trade) Dose Ordered Sig/Alethea Route PRN Reason Start Time Stop Time Status Last Admin Dose Admin Acetaminophen (Tylenol) 650 mg Q6H PRN ORAL Mild Pain (Pain Scale 1-3) 10/28/20 03:00 11/27/20 02:59 Acetaminophen (Tylenol) 650 mg Q6H PRN ORAL Temp >100.5 10/28/20 03:00 11/27/20 02:59 Amlodipine Besylate (Norvasc) 5 mg DAILY ORAL 10/30/20 09:00 11/29/20 08:59 10/31/20 08:38 Ceftriaxone Sodium 1 gm/ Dextrose 55 ml @ 110 mls/hr Q24H IVPB 10/28/20 21:00 11/04/20 20:59 10/30/20 20:39 Fluoxetine HCl (PROzac) 30 mg DAILY ORAL 10/28/20 17:00 11/27/20 16:59 10/31/20 08:37 Lorazepam (Ativan 2mg/ml 1ml) 1 mg Q3H PRN IV For Anxiety 10/28/20 03:00 11/04/20 02:59 10/30/20 21:31 Metformin HCl (Glucophage) 500 mg TWICE A DAY ORAL 10/29/20 18:00 11/28/20 17:59 10/31/20 08:37 Metoprolol Succinate (Toprol XL) 25 mg DAILY ORAL 10/30/20 09:00 01/28/21 08:59 10/31/20 08:38 Tamsulosin HCl (Flomax) 0.4 mg DAILY ORAL 10/28/20 10:00 11/27/20 09:59 10/31/20 08:37 Allergies: Coded Allergies: No Known Allergies (Verified , 10/01/10) ROS Limited/Unobtainable: No Constitutional: Reports: weakness HEENT: Denies: no symptoms, eye pain, blurred vision, tearing, double vision, ear pain, ear discharge, nose pain, nose congestion, throat pain, throat swelling, mouth pain, mouth swelling, other Cardiovascular: Denies: no symptoms, chest pain, edema, irregular heart rate, lightheadedness, palpitations, syncope, other Respiratory: Denies: no symptoms, cough, orthopnea, shortness of breath, SOB with excertion, SOB at rest, sputum, stridor, wheezing, other Gastrointestinal/Abdominal: Denies: no symptoms, abdomen distended, abdominal pain, black stools, tarry stools, blood in stool, constipated, diarrhea, difficulty swallowing, nausea, poor appetite, poor fluid intake, rectal bleeding, vomiting, other Genitourinary: Denies: no symptoms, burning, discharge, frequency, flank pain, hematuria, incontinence, pain, urgency, other Neurologic/Psychiatric: Denies: no symptoms, anxiety, depressed, emotional problems, headache, numbness, paresthesia, pre-existing deficit, seizure, tingling, tremors, weakness, other Subjective no further chest pain today hematuria improving Objective Last Vital Signs Date Time Temp Pulse Resp B/P (MAP) Pulse Ox O2 Delivery O2 Flow Rate FiO2 10/31/20 09:00 Room Air 10/31/20 08:38 75 126/71 10/31/20 08:00 98.0 18 96 Intake and Output 10/30/20 10/31/20 19:00 07:00 Intake Total 1600 ml 450 ml Balance 1600 ml 450 ml Intake Oral 1600 ml 450 ml # Voids 3 4 Objective General appearance: alert, cooperative, no distress, appears stated age Head: Normocephalic, without obvious abnormality, atraumatic Eyes: conjunctivae/corneas clear. PERRL, EOM's intact. Fundi benign Throat: Lips, mucosa, and tongue normal. Teeth and gums normal Neck: supple, symmetrical, trachea midline, no adenopathy, thyroid: not enlarged, symmetric, no tenderness/mass/nodules, no carotid bruit and no JVD Lungs: clear to auscultation bilaterally Heart: regular rate and rhythm, S1, S2 normal, no murmur, click, rub or gallop Abdomen: soft, non-tender. Bowel sounds normal. No masses, no organomegaly Extremities: extremities normal, atraumatic, no cyanosis or edema Pulses: 2+ and symmetric Skin: Skin color, texture, turgor normal. No rashes or lesions Neurologic: Grossly normal Assessment/Plan Status Narrative #hematuria #UTI? #BPH #Depression - admit inpatient - monitor cbc - urology eval - ceftriaxone 1g daily - flomax 0.4mg daily - resume home meds - cardiology eval - pain control Pirouz,Aslan M.D. Oct 31, 2020 12:17
--- NOTE | 2020-10-31 13:45 | NUR ---
NURSE NOTES: Pt in stable condition. Provided discharge instructions , pt verbalized understand. All belongings were accounted for. Provided clothing. IV and ID band removed. Pt was escorted by nurse to downstair and [place] [facility] [place]
--- NOTE | 2020-10-31 13:57 | Surgery Progress Note ---
Surgery Progress Note Subjective Symptoms: improved, pain absent, tolerating diet, voiding well, passing flatus, BM Objective Last 24 Hour Vital Signs Date Time Temp Pulse Resp B/P (MAP) Pulse Ox O2 Delivery O2 Flow Rate FiO2 10/31/20 12:00 98.0 70 18 131/66 (87) 96 10/31/20 09:00 Room Air 10/31/20 08:38 75 126/71 10/31/20 08:38 75 126/71 10/31/20 08:00 98.0 75 18 126/71 (89) 96 10/31/20 04:30 98.2 63 18 135/73 (93) 97 10/31/20 00:00 98.6 66 18 135/70 (91) 97 10/30/20 21:00 Room Air 10/30/20 20:00 98.0 67 18 131/70 (90) 95 10/30/20 16:00 98.4 70 18 158/72 (100) 98 I&O Intake and Output 10/30/20 10/31/20 19:00 07:00 Intake Total 1600 ml 450 ml Balance 1600 ml 450 ml Intake Oral 1600 ml 450 ml # Voids 3 4 Cardiovascular: RSR Respiratory: clear Abdomen: soft, flat, non-tender, present bowel sounds Extremities: no edema, no tenderness, no cyanosis Plan Problems: (1) Schizophrenia (2) Complication of Parmar catheter (3) Suicide gesture (4) Hematuria Assessment & Plan: pulled parmar blood and clots noted now clearing up still concerned patient urology eval hold on urethrogram until uro eval thank you (5) Dizziness (6) Drug overdose (7) Abdominal pain Assessment & Plan: likely from bladder irritation prior abd distention constipated okay for diet bowel regimen kub ordered will follow with recs and exam thank you diet as tolerated d/c home outpatient f/u Toy Rodriguez Oct 31, 2020 13:57
--- NOTE | 2020-11-01 10:50 | Cardiology Report ---
APPROVED REPORT EKG Measurement Heart [id number] <Conclusion> Normal sinus rhythm Normal ECG
--- NOTE | 2020-11-01 11:35 | NUR ---
INSURANCE CLINICALS/DC INSTRUCTIONS FAXED TO [facility] [phone]
--- NOTE | 2020-11-01 13:45 | Discharge Summary ---
Discharge Summary Discharge Summary _ DATE OF ADMISSION: 10/28/2020 DATE OF DISCHARGE: 10/31/2020 DISCHARGED BY: Dr Fu REASON FOR ADMISSION: 55 years old male with past medical history of hypertension, diabetes mellitus, asthma, psychiatric disorder , was brought by paramedics after due to penile bleeding. Patient reported being seen at [facility] , where he had a Ramirez catheter placed. However he pulled his catheter and subsequently developed penile bleeding. He denied any fever and chills. Upon evaluation WBC 16.5 ,hemoglobin 14.4 ,hematocrit 40.8. Stable renal parameters and electrolytes. Stable LFT. Stable coagulation profile. Serum alcohol less than 3. Chest x-ray revealed no acute cardiopulmonary pathology. Patient empirically received IV Rocephin and admitted for further management. CONSULTANTS: urologist Dr. Burton work and family life consultant Dr. Smith surgery Dr. Rodriguez [facility] COURSE: Patient admitted to medical surgical floor . Hemoglobin and hematocrit were closely monitored . Patient started on empiric ceftriaxone and Flomax. Urology consult requested. Home medication resumed . Pain management was addressed as needed. Abdominal x-ray was negative. Per urologist gross hematuria appeared to be secondary to traumatic Ramirez removal. Bleeding resolved. Patient was able to void with low residuals. Flomax continued along with antibiotics. Renal function remained stable. Patient was recommended cystoscopy at some point electively. Hemoglobin and hematocrit remained stable. Supportive care provided. Blood pressure was managed with calcium channel marnie and beta-marnie and remained stable. Psych medications continued . Patient stabilized and was ready for discharge home FINAL DIAGNOSES: Gross hematuria secondary to Ramirez trauma BPH Possible UTI BPH Possible neurogenic bladder Depression Schizophrenia DISCHARGE MEDICATIONS: See Medication Reconciliation list. DISCHARGE INSTRUCTIONS: Patient was discharged home. Follow-up with a primary care provider in 1 to 2 weeks. Patient was recommended elective cystoscopy at some point. I have been assigned to dictate discharge summary for this account. I was not involved in the patient's management. Deborah Cabral NP Nov 01, 2020 13:45
--- NOTE | 2020-11-02 13:09 | NUR ---
INSURANCE DC SUMMARY FAXED TO [facility] [phone]
--- NOTE | 2020-11-02 14:39 | Cardiology Report ---
APPROVED REPORT EXAM: Two-dimensional and M-mode echocardiogram with Doppler and color Doppler. INDICATION Shortness of breath M-Mode DIMENSIONS IVSd1.1 (0.7-1.1cm)Left Atrium (MM)3.6 (1.6-4.0cm) LVDd5.4 (3.5-5.6cm)Aortic Root2.9 (2.0-3.7cm) PWd1.1 (0.7-1.1cm)Aortic Cusp Exc.2.0 (1.5-2.0cm) IVSs1.9 cmEPSS0.3 (>1.0cm) LVDs3.4 (2.5-4.0cm) PWs1.6 cm <Conclusion> Normal left ventricular chamber size, systolic function and wall motion. Left ventricular ejection fraction estimated to be 65 %. No evidence of left ventricular hypertrophy. Small pericardial effusion. All other cardiac chamber sizes are within normal limits. Focal aortic valve sclerosis with adequate cusp excursion. Thickened mitral valve leaflets with normal excursion. Mitral annulus and aortic root calcification. Normal pulmonic valve structure. Normal tricuspid valve structure. IVC at normal size with physiologic collapse. A color flow and spectral Doppler study was performed and revealed: Trace aortic regurgitation. Mitral diastolic velocities of E & A equalization & Tissue Doppler Imaging suggest mildly reduced left ventricular relaxation c/w impaired relaxation diastolic dysfunction. Trace mitral regurgitation. Trace tricuspid regurgitation. Tricuspid systolic velocities suggests peak right ventricular systolic pressure of 27 mmHg. Pulmonic regurgitation present.
== END 2020-10-31 13:45 | disposition home or self-care (01) | DRG 468 ==
LOC: EDBD 22:25 → EMR 22:50 → 4E 10-28 00:52 → EDBEDREQ 10-28 01:52 → 3E 10-29 05:07
DX: R31.0 Gross hematuria (principal); F20.9 Schizophrenia, unspecified; X83.8XXA Intentional self-harm by other specified means, initial encounter; N40.0 Benign prostatic hyperplasia without lower urinary tract symptoms; F32.9 Major depressive disorder, single episode, unspecified; K40.90 Unilateral inguinal hernia, without obstruction or gangrene, not specified as recurrent; R07.89 Other chest pain; E11.9 Type 2 diabetes mellitus without complications; Z79.84 Long term (current) use of oral hypoglycemic drugs
CPT/HCPCS: 36415; 51702; 71045; 74018; 80048; 80053; 82140; 83690; 83735; 83880; 84100; 84484; 85025; 85610; 85730; 93005; 93306; 96365; 96372; 99285; G0480